=== PATIENT | male | born 1940 | race Caucasian/White ===

== ENCOUNTER 2017-07-12 21:41 | Inpatient (IN) | payer OTHER, MEDICARE ==
--- NOTE | 2017-07-12 22:26 | ED ---
Fall HPI - General Chief Complaint: Fall Stated Complaint: Fall Time Seen by Provider: 07/12/17 21:43 Source: patient, EMS Mode of arrival: EMS - History of Present Illness Initial Comments: This patient is a 77-year-old man who presents to be evaluated mainly for left hip pain as result of a fall. The patient states that he was doing some work on a ladder, he believes he was about 8 feet up, when he slipped and fell, landing on his left side on the sidewalk. He had some left elbow pain and left hip pain, and then noted that he was not able to get up and walk. The patient denied any loss of consciousness. He denies pain to the head, neck, chest, back or abdomen. He does not take any blood thinners. He did not note any lacerations. Patient declines analgesia at the initial history and physical exam. MD Complaint: fall Onset/Timin -: hour(s) Fall From: from height (distance) (8), other (From a ladder) When Fall Occurred: just prior to arrival Fall Witnessed: yes, by family Place Fall Occurred: street Loss of Consciousness: none Prolonged Down Time?: no Symptoms Prior to Fall: none Location - Extremities: Left: Elbow, Leg Severity: moderate Quality: sharp Context: tripped/slipped Associated Symptoms: unable to walk - Related Data Home Medications Medication Instructions Recorded Confirmed Aspirin [Adult Low Dose Aspirin EC] 81 mg PO DAILY 07/12/17 07/12/17 Lisinopril [Prinivil] 20 mg PO DAILY 07/12/17 07/12/17 Allergies Allergy/AdvReac Type Severity Reaction Status Date / Time No Known Allergies Allergy Verified 07/12/17 22:01 Review of Systems ROS Statement: Those systems with pertinent positive or pertinent negative responses have been documented in the HPI. ROS Other: All systems not noted in ROS Statement are negative. Constitutional: Denies: fever Eyes: Denies: vision change Respiratory: Denies: cough, dyspnea Cardiovascular: Denies: chest pain, syncope Gastrointestinal: Denies: abdominal pain Musculoskeletal: Reports: as per HPI, arthralgia. Denies: back pain Skin: Denies: rash, lesions Neurological: Denies: headache, weakness, numbness Hematological/Lymphatic: Denies: easy bleeding Past Medical History Past Medical History: Hypertension, Myocardial Infarction ([place]) History of Any Multi-Drug Resistant Organisms: None Reported Additional Past Surgical History / Comment(s): BILROTH 2 Past Psychological History: No Psychological Hx Reported Smoking Status: Current every day smoker Past Alcohol Use History: Occasional Past Drug Use History: None Reported General Exam Limitations: physical limitation General appearance: alert, in no apparent distress Head exam: Present: atraumatic, normocephalic, normal inspection Eye exam: Present: normal appearance. Absent: scleral icterus, conjunctival injection ENT exam: Present: normal oropharynx Neck exam: Present: normal inspection, full ROM. Absent: tenderness Respiratory exam: Present: normal lung sounds bilaterally, chest wall tenderness. Absent: respiratory distress, wheezes, rales, rhonchi, stridor Cardiovascular Exam: Present: regular rate, normal rhythm, normal heart sounds. Absent: systolic murmur, diastolic murmur, rubs, gallop GI/Abdominal exam: Present: soft. Absent: distended, tenderness, guarding, rebound, rigid, mass, pulsatile mass, hernia Extremities exam: Present: normal inspection, normal capillary refill. Absent: pedal edema, calf tenderness Back exam: Present: normal inspection. Absent: CVA tenderness (R), CVA tenderness (L) Neurological exam: Present: alert, CN II-XII intact Skin exam: Present: warm, dry, intact, normal color. Absent: rash, cyanosis, diaphoretic, erythema Course Vital Signs 07/12/17 07/12/17 07/12/17 21:58 22:01 23:01 Temperature 98.7 F 97 F L Pulse Rate 88 77 78 Respiratory 18 18 18 Rate Blood Pressure 220/122 175/95 153/94 O2 Sat by Pulse 98 97 99 Oximetry 07/13/17 00:18 Temperature Pulse Rate 74 Respiratory 18 Rate Blood Pressure 163/86 O2 Sat by Pulse 98 Oximetry Medical Decision Making - Medical Decision Making Patient is a 77-year-old man with left hip intertrochanteric fracture. Case discussed with Dr. Adrian, who will admit. Medical consultation ordered as well. Patient will be kept nothing by mouth for possible surgery. He did request some analgesia after being here for a period of time and this is provided him relief. - Lab Data Result diagrams: 07/12/17 23:20 07/12/17 23:20 Lab Results 07/12/17 07/12/17 07/12/17 Range/Units 23:20 23:20 23:20 WBC 13.1 H (3.8-10.6) k/uL RBC 4.50 (4.30-5.90) m/uL Hgb 13.0 (13.0-17.5) gm/dL Hct 39.3 (39.0-53.0) % MCV 87.4 (80.0-100.0) fL MCH 28.8 (25.0-35.0) pg MCHC 32.9 (31.0-37.0) g/dL RDW 13.8 (11.5-15.5) % Plt Count 274 (150-450) k/uL Neutrophils % 85 % Lymphocytes % 9 % Monocytes % 3 % Eosinophils % 1 % Basophils % 0 % Neutrophils # 11.2 H (1.3-7.7) k/uL Lymphocytes # 1.2 (1.0-4.8) k/uL Monocytes # 0.4 (0-1.0) k/uL Eosinophils # 0.2 (0-0.7) k/uL Basophils # 0.1 (0-0.2) k/uL PT 10.2 (9.0-12.0) sec INR 1.0 (<1.2) APTT 23.8 (22.0-30.0) sec Sodium 137 (137-145) mmol/L Potassium 4.6 (3.5-5.1) mmol/L Chloride 104 (98-107) mmol/L Carbon Dioxide 24 (22-30) mmol/L Anion Gap 9 mmol/L BUN 13 (9-20) mg/dL Creatinine 1.00 (0.66-1.25) mg/dL Est GFR (MDRD) Af Amer >60 (>60 ml/min/1.73 sqM) Est GFR (MDRD) Non-Af >60 (>60 ml/min/1.73 sqM) Glucose 88 (74-99) mg/dL Calcium 8.6 (8.4-10.2) mg/dL - EKG Data -: EKG Interpreted by Ne EKG shows normal: sinus rhythm (With PVC), axis (Normal), intervals (Normal), QRS complexes (Normal), ST-T waves (Normal) Rate: normal (Rate 77 bpm) Disposition Clinical Impression: Fall, Fracture of hip, left, closed Disposition: ADMITTED IP TO THIS HOSP Condition: Fair
--- NOTE | 2017-07-12 23:02 | XR ---
EXAMINATION TYPE: XR pelvis AP view DATE OF EXAM: 07/12/2017 COMPARISON: NONE HISTORY: Hip pain TECHNIQUE: Single view FINDINGS: Pelvic ring is intact. There is a comminuted intratrochanteric fracture of the left femur. Proximal right femur is intact. Sacroiliac joints appear normal. IMPRESSION: Acute intertrochanteric comminuted fracture left femur.
[2017-07-12] MEDS ORDERED: MORPHINE SULFATE 4 MG/ML SYRINGE IV STA (23:03)
--- NOTE | 2017-07-12 23:03 | XR ---
EXAMINATION TYPE: XR femur LT DATE OF EXAM: 07/12/2017 COMPARISON: NONE HISTORY: Hip pain TECHNIQUE: 4 views FINDINGS: There is comminuted intertrochanteric fracture left femur with slight impaction. There is d isplacement up to 1.5 cm. There is no dislocation. The knee joint appears intact. There is vascular c alcification. IMPRESSION: Acute intertrochanteric fracture left femur.
--- NOTE | 2017-07-12 23:05 | XR ---
EXAMINATION TYPE: XR chest 1V DATE OF EXAM: 07/12/2017 COMPARISON: 10/12/2014 HISTORY: Preop after falling TECHNIQUE: Single frontal view of the chest is obtained. FINDINGS: There is no heart failure nor confluent pneumonic infiltrate. Costophrenic angles are orly r. There are surgical clips at the gastroesophageal junction. Thoracic aorta is atheromatous. There a re chest leads. Bony thorax appears intact. IMPRESSION: No active cardiopulmonary disease. No change.
--- NOTE | 2017-07-12 23:06 | XR ---
EXAMINATION TYPE: XR elbow complete LT DATE OF EXAM: 07/12/2017 COMPARISON: None HISTORY: Fall. Pain. TECHNIQUE: 3 views. FINDINGS: I see no fracture nor dislocation. Elbow joint spaces are fairly normal. There is no sign of elbow pamela int effusion. IMPRESSION: Negative left elbow exam.
[2017-07-12] MEDS ORDERED: ONDANSETRON 4 MG/2 ML VIAL IVP PRN (23:32)
[2017-07-12] MEDS ORDERED: ACETAMINOPHEN TAB 325 MG TAB PO PRN (23:32)
[2017-07-12] MEDS ORDERED: MORPHINE SULFATE 4 MG/ML SYRINGE IV PRN (23:32)
[2017-07-12] MEDS ORDERED: NALOXONE 0.4 MG/ML 1 ML VIAL IV PRN (23:32)
[2017-07-12 23:33] LABS: Basophils # (A) 0.1 k/uL (0-0.2); Basophils % (A) 0 %; Eosinophils # (A) 0.2 k/uL (0-0.7); Eosinophils % (A) 1 %; HCT 39.3 % (39.0-53.0); Lymphocytes # (A) 1.2 k/uL (1.0-4.8); Lymphocytes % (A) 9 %; MCH 28.8 pg (25.0-35.0); MCHC 32.9 g/dL (31.0-37.0); MCV 87.4 fL (80.0-100.0); Mean Platelet Volume 7.7; Monocytes # (A) 0.4 k/uL (0-1.0); Monocytes % (A) 3 %; Neutrophils # (A) 11.2 k/uL (1.3-7.7); Neutrophils % (A) 85 %; Platelet Count 274 k/uL (150-450); RDW 13.8 % (11.5-15.5); WBC 13.1 k/uL (3.8-10.6)
[2017-07-12] MEDS ORDERED: LORazepam 2 MG/ML INJ IV PRN ×3 (23:41)
[2017-07-12] MEDS ORDERED: THIAMINE 100 MG/ML 2 ML VIAL IM STA (23:41)
[2017-07-12 23:42] LABS: Partial Thromboplastin Time 23.8 sec (22.0-30.0); Prothrombin Time 10.2 sec (9.0-12.0)
[2017-07-12 23:56] LABS: Anion Gap 9 mmol/L; Blood Urea Nitrogen 13 mg/dL (9-20); Calcium 8.6 mg/dL (8.4-10.2); Carbon Dioxide 24 mmol/L (22-30); Chloride 104 mmol/L (98-107); Glucose 88 mg/dL (74-99); Potassium 4.6 mmol/L (3.5-5.1); Sodium 137 mmol/L (137-145)
[2017-07-13] MEDS: SODIUM CHLORIDE 0.9% 1,000 ML IV SCH ×3 (01:21→22:58)
[2017-07-13 01:45] VITALS: BMI 17.9
[2017-07-13] MEDS: THIAMINE 100 MG TAB PO SCH ×3 (01:57→17:43)
[2017-07-13] MEDS: MORPHINE SULFATE 4 MG/ML SYRINGE IVP PRN ×5 (02:04→23:25)
[2017-07-13 03:01] LABS: Appearance,Urine Clear (Clear); Bilirubin,Urine Negative (Negative); Blood,Urine Negative (Negative); Color,Urine Yellow; Glucose,Urine (UA) Negative (Negative); Ketones,Urine 1+ (Negative); Leukocyte Esterase,Urine Negative (Negative); Protein,Urine Negative (Negative); Specific Gravity,Urine 1.009 (1.001-1.035); Urobilinogen,Urine <2.0 mg/dL (<2.0)
--- NOTE | 2017-07-13 07:59 | P.HPOR ---
History of Present Illness H&P Date: 07/13/17 Chief Complaint: Left hip pain status post fall, left elbow pain Patient's very pleasant 77-year-old male who presented to the emergency room yesterday after sustaining a fall at home. He was on a ladder and about 7 or 8 feet up when he slipped and fell onto his left side. He had sudden acute pain in his left hip and some pain in his elbow as well. He denies any loss of consciousness or chest pain or shortness of breath. He denies any prior history of pain in his hip. He is normally a community ambulate without any assistance. He is complaining of severe pain in his left hip with any sort of motion. He says he can move his left arm quite well but has some soreness. He denies any nausea vomiting chest pain or shortness breath. Denies any lightheadedness. Review of Systems Sizing change in bowel bladder function. He has severe pain in his left hip. He is no numbness tingling down his legs. His no chest pain shortness breath nausea vomiting. He denies loss of consciousness. Denies prior pain in his hips. Past Medical History Past Medical History: Hypertension, Myocardial Infarction ([place]) Last Myocardial Infarction Date:: 2006 History of Any Multi-Drug Resistant Organisms: None Reported Past Surgical History: Appendectomy, Tonsillectomy Additional Past Surgical History / Comment(s): BILROTH 2 Past Anesthesia/Blood Transfusion Reactions: Unable to Obtain Additional Past Anesthesia/Blood Transfusion Reaction / Comment(s): pt never received blood transfusion Past Psychological History: No Psychological Hx Reported Smoking Status: Current every day smoker Past Alcohol Use History: Occasional Past Drug Use History: None Reported Medications and Allergies Home Medications Medication Instructions Recorded Confirmed Type Aspirin [Adult Low Dose Aspirin EC] 81 mg PO DAILY 07/12/17 07/12/17 History Lisinopril [Prinivil] 20 mg PO DAILY 07/12/17 07/12/17 History Allergies Allergy/AdvReac Type Severity Reaction Status Date / Time No Known Allergies Allergy Verified 07/12/17 22:01 Physical Examination Osteopathic Statement: *. No significant issues noted on an osteopathic structural exam other than those noted in the History and Physical/Consult. - Hip left Gait: other Tenderness with palpation: anterior, posterior, medial, lateral Pain with motion: internal rotation and hip flexion (Has left hip he has severe pain with any sort of motion. He is unable to lift his leg up off the bed. He has pain with any internal or external rotation of the left. There is no open wounds lacerations or abrasions. His thigh and calf soft nontender. His right lower extremity has good motion with flexion-extension internal/external rotation of his hip. He has sustained dorsal flexion plantar flexion and EHL his bilateral ankle the toes. His upper extremity some good active passive range of motion he has some ecchymosis over his left elbow there is no point tenderness no crepitance. He has good motion in his elbows shoulders. His neck and back nontender to palpation. His abdomen soft nontender.) Results - Labs Labs: Abnormal Lab Results - Last 24 Hours (Table) 07/12/17 07/13/17 Range/Units 23:20 00:00 WBC 13.1 H (3.8-10.6) k/uL Neutrophils # 11.2 H (1.3-7.7) k/uL Urine Ketones 1+ H (Negative) H & H 07/12/17 Range/Units 23:20 Hgb 13.0 (13.0-17.5) gm/dL Hct 39.3 (39.0-53.0) % Coagulation 07/12/17 Range/Units 23:20 INR 1.0 (<1.2) Result Diagrams: 07/12/17 23:20 07/12/17 23:20 - Diagnostic results Hip x-ray: report reviewed, image reviewed (X-rays of pelvis left hip show a comminuted intertrochanteric left proximal femur fracture. There is no evidence of any masses. There is no dislocation. X-rays of his left elbow do not show any obvious fracture or dislocation.) Assessment and Plan Assessment: Traumatic left hip intertrochanteric femur fracture status post fall Left elbow contusion status post fall Inability to ambulate due to left femur fracture Plan: The patient has a new acute traumatic fracture of his left intertrochanteric femur. He is unable to mobilize due to this and has severe pain with it. This is directly due to his fall. His best option for treatment would be to pursue internal fixation to attempt to get the fracture to heal as best as possible and preserve his anatomy. We will plan to do intramedullary hip screw fixation of his left hip as soon as possible. I discussed the different issues associated with his fracture and with different treatment options ranging from conservative to surgical. We discussed the risks of surgery including but limited to the risk of bleeding risk of infection risk of need for further surgery risk of decreased or loss of motion loss of function malunion nonunion hardware failure nerve damage was all explained to him the risks of anesthesia was explained risk of need for further surgery was explained as well as the fact that surgery may not alleviate his symptoms was all explained to him. He understands that with his injury the conservative options are quite dismal and would not likely produce a satisfactory result for him. He is interested in pursuing surgical intervention and we'll plan to pursue surgery today if he is cleared with medicine. We will keep him nothing by mouth for now for possible surgery today. He is can remain on bedrest at least until his surgery and then we can start him mobilizing with nonweightbearing left lower extremity. It is likely that he is going to be possible for the next couple of days for rehabilitation before he is able to be discharged home after surgery.
[2017-07-13] MEDS: LISINOPRIL 20 MG TAB PO SCH (08:19)
[2017-07-13 09:13] LABS: Basophils # (A) 0.1 k/uL (0-0.2); Basophils % (A) 1 %; Eosinophils # (A) 0.1 k/uL (0-0.7); Eosinophils % (A) 1 %; HGB 11.4 gm/dL (13.0-17.5); Lymphocytes # (A) 1.5 k/uL (1.0-4.8); Lymphocytes % (A) 15 %; MCH 28.6 pg (25.0-35.0); MCHC 31.6 g/dL (31.0-37.0); MCV 90.3 fL (80.0-100.0); Mean Platelet Volume 7.6; Monocytes # (A) 0.4 k/uL (0-1.0); Monocytes % (A) 4 %; Neutrophils # (A) 7.7 k/uL (1.3-7.7); Neutrophils % (A) 77 %; Platelet Count 274 k/uL (150-450); RBC 3.99 m/uL (4.30-5.90); RDW 13.4 % (11.5-15.5); WBC 9.9 k/uL (3.8-10.6)
[2017-07-13 09:24] LABS: Anion Gap 7 mmol/L; Blood Urea Nitrogen 12 mg/dL (9-20); Carbon Dioxide 24 mmol/L (22-30); Chloride 104 mmol/L (98-107); Glucose 80 mg/dL (74-99); Sodium 135 mmol/L (137-145)
[2017-07-13] MEDS ORDERED: IPRATROPIUM-ALBUTEROL 3 ML NEB INHALATION PRN (11:20)
[2017-07-13] MEDS ORDERED: LACTATED RINGERS 1,000 ML IV ONE ×2 (11:45→13:42)
[2017-07-13] MEDS ORDERED: MIDAZOLAM 2 MG/2 ML VIAL ONE (12:11)
[2017-07-13] MEDS ORDERED: fentaNYL (PF) 50 MCG/ML 2 ML AMP ONE (12:11)
[2017-07-13] MEDS ORDERED: PHENYLEPHRINE-0.9% NACL SYG 1 MG/10 ML SYRINGE ONE (12:11)
[2017-07-13] MEDS ORDERED: KETAMINE 10 MG/ML 20 ML VIAL ONE (12:11)
[2017-07-13] MEDS ORDERED: PROPOFOL 10 MG/ML 20 ML VIAL IV ONE (12:11)
[2017-07-13] MEDS: IPRATROPIUM-ALBUTEROL 3 ML NEB INHALATION SCH ×2 (12:13→18:52)
[2017-07-13] MEDS ORDERED: SODIUM CHLORIDE 0.9% 50 ML with ceFAZolin 2,000 MG IV ONE ×2 (12:35)
[2017-07-13] MEDS ORDERED: ceFAZolin 1,000 MG in SODIUM CHLORIDE 0.9% 1,000 ML IRRIGATION ONE (12:50)
[2017-07-13] MEDS ORDERED: MAGNESIUM HYDROXIDE 2,400 MG/10 ML CUP PO PRN (13:28)
[2017-07-13] MEDS ORDERED: HYDROcodone/APAP 5-325MG 1 EACH TAB PO PRN (13:28)
[2017-07-13] MEDS ORDERED: NALOXONE 0.4 MG/ML 1 ML VIAL IV PRN (13:28)
--- NOTE | 2017-07-13 13:34 | P.OP ---
Date of Procedure: 07/13/17 Preoperative Diagnosis: Left hip comminuted intratrochanteric trochanteric hip fracture Acute left hip fracture status post fall Postoperative Diagnosis: Same Anesthesia: spinal Pathology: other (Proximal femur reaming sent to pathology) Condition: stable Disposition: PACU Description of Procedure: Preoperative diagnosis: Left comminuted Intertrochanteric femoral hip fracture, acute status post fall Postoperative diagnosis: Same Procedure: intertrochanteric hip screw placement Use of fluoroscopic guidance Closed reduction Surgeon: Dr. Nguyễn Ruiz.: Colten Rm who is present that the entire the case persistence during positioning dissection exposure placement of hardware and closure Anesthesia: Spinal per Dr. Dr. eLvin Estimated blood loss: Approximately 100 mL Components implanted: [employer]TAN IM hip screw 125 short with a 120 mm lag screw Disposition: To recovery room in good stable condition Operative indications The patient sustained a injury and suffered a hip fracture at the inter- trochanteric area of her femur which was displaced and angulated. The patient was on a ladder and fell approximately 7 or 8 feet onto his left side and had comminuted intertrochanteric left hip fracture due to his fall. We were involved in the case in regard to his hip fracture. Patient also had some left elbow pain but was not found to have any fracture. After evaluation it was determined that they would be a candidate for hip internal fixation and stabilization via surgical intervention. This would give them the best chance of mobilization and ambulation. We discussed the range of treatment options from conservative to surgical. They elected proceed with surgical intervention. We answered their questions to the best of our ability healing which they can understand. They signed an informed consent. Operative summary After obtaining informed consent evaluation by anesthesia, preoperative evaluation and clearance for medical service, the patient was identified and prepped Shirley area and the surgical site was marked. There brought to the operating room where the given appropriate anesthesia by the anesthesia department in standard fashion without any complications. Once the anesthesia was established we were able to position the patient. The patient was placed on a fracture table with a well-padded perineal post. The operative side was placed in a foot oden stirrup which was well-padded well molded and placed in gentle in-line traction. The nonoperative leg was placed in a padded stirrup. C-arm was brought in and we performed a closed reduction technique at the hip. We are able to get good alignment good position of the intertrochanteric fracture with gentle reduction techniques and traction utilizing the fracture table. Once patient was well positioned lower extremity was prepped and draped in normal standard sterile fashion. An appropriate keystone protocol and timeout was completed and were able to proceed with surgery. He started point just proximal to the greater trochanter was established and a median incision approximately 2 inches in length approximately to the greater trochanter. I dissected down through the fascia and I was able to expose the tip of the greater trochanter. A sharp starting hole was established at the tip of the greater trochanter near the junction of the anterior and middle third. Positioning was confirmed with C-arm guidance. I was able to start the awl into the bone and then use a guidepin at the starting point establish down to the level of the lesser trochanter at the intramedullary space. I then used a starting reamer for the greater trochanter placed over the guidepin and reamed down appropriately under C-arm guidance. I was unable to place a guidepin into the intramedullary aspect of the femur and then reamed appropriately to the appropriate length. The positioning was confirmed on C-arm guidance. With the femur appropriately reamed I then chose the appropriate size intramedullary bautista which was connected to the appropriate jig. The jig was checked for alignment. The area was copiously irrigated and suctioned dry and we're able place the bautista at intramedullary space through the starting hole appropriately. It was seated down for appropriate position to align the leg pain into the femoral neck and head. A second incision was established at the site for the placement of the lag screw area and the guide was established at the lateral aspect of the femur and a guidepin was drilled into the femoral neck and head and near center center position. With this appropriate alignment and position where a reamer over the guidepin making sure not to penetrate the articular surface. The position was confirmed on C-arm guidance in AP and lateral positions. With this established we were able to place the appropriate size lag screw after measuring. Lag screw was placed into the femoral neck and head good alignment good position with excellent bony purchase. It was appropriately aligned and we placed a locking screw through the bautista appropriately and checked that the position was established. I was able to drill and place the compression screw immediately adjacent and inferior to the lag screw which gave good compression across the fracture site in good alignment and position. With the area in good position able place a distal locking screw. We utilized the guide sleeve a separate incision was made at the skin. The guide sleeve was placed in the lateral aspect of the femur and the distal locking screw hole was established through the femur and distal locking hole of the intramedullary bautista. It was measured appropriately and a distal locking screw was placed in good alignment and good position with excellent bony purchase. The position was checked to make sure it was through the appropriate hole in the intramedullary bautista. With this established we're able to remove the jig completely from the bautista and final images were taken which showed excellent alignment and position of the hardware and the fracture. With the bautista in place and the fracture stable, although the incision sites were copiously irrigated and suctioned dry. Good hemostasis was maintained. Deep fascial layers were closed with #1 Vicryl. Subcu tissue was closed with 2-0 Vicryl. Subcuticular tissues closed with 3-0 Vicryl. Was are cleaned and dried with dressed with Dermabond , Telfa for a and tape. Drapes were broken down, the hip was held in stable position with the post being removed safely once the positioning was stabilized. The patient was then transferred back to their hospital bed being careful to maintain the hip and C- spine alignment and airway. Once stable to patient was transferred back to the postanesthesia care unit to be readmitted for pain control and DVT prophylaxis medical management and monitoring and mobilization we will continue follow patient closely throughout their postoperative course.
--- NOTE | 2017-07-13 14:21 | FL ---
EXAMINATION TYPE: FL guidance operating room, XR Hip Complete LT DATE OF EXAM: 07/13/2017 CLINICAL HISTORY: Left hip fracture. TECHNIQUE: Fluoroscopy. Complete intraoperative 2 views left hip. COMPARISON: Pelvic and left femur x-ray July 12, 2017. FINDINGS: Fluoroscopic guidance was provided during open reduction internal fixation procedure perfo rmed by Dr. Adrian. A total of 36 seconds of fluoroscopic time was utilized during the procedure and 4 spot images are acquired. Images acquired show placement of intramedullary bautista with distal transverse fixating screw and larger femoral neck fixating screws through the intertrochanteric fracture left proximal femur. Slight late ral step-off is seen on frontal view at level of lesser trochanter on intraoperative images provided. IMPRESSION: As Above.
[2017-07-13] MEDS: ceFAZolin IN SWFI 2 GM/20 ML SYRINGE IVP SCH ×2 (16:35→23:16)
[2017-07-13] MEDS ORDERED: ASPIRIN 81 MG PO SCH (18:00)
[2017-07-13] MEDS: ASPIRIN 325 MG TAB PO SCH (18:08)
[2017-07-13] MEDS: SENNOSIDES-DOCUSATE SODIUM 1 EACH TAB PO SCH (20:02)
[2017-07-13] MEDS: NICOTINE 21MG/24HR PATCH TRANSDERM SCH (20:02)
--- NOTE | 2017-07-13 22:58 | CONS ---
CONSULTATION REASON FOR CONSULTATION: Advice regarding hypertension and multiple other medical issues requested by Orthopedic Surgery. HISTORY OF PRESENT ILLNESS: This 77-year-old gentleman with a past medical history of hypertension, history of CAD, stent in 2006, history of appendectomy, tonsillectomy, Billroth II being followed by Dr. Cueva in the outpatient setting apparently had a fall and complaining of left hip pain. The patient suffered a left hip comminuted intertrochanteric fracture and is admitted for evaluation. There is no history of fever, rigors. No history of headache, loss of consciousness, seizures. No history of any chest pain, palpitations. Previous exercise tolerance appears to be excellent. PAST MEDICAL HISTORY: History of hypertension, history of myocardial infarction, tonsillectomy, Billroth II. MEDICATIONS: The home medications are: 1. Spiriva 1 puff daily. 2. Ventolin HFA 1-2 puffs every 6 hours. 3. Prinivil 20 mg daily. 4. Ecotrin 81 mg daily. ALLERGIES: None. FAMILY HISTORY: No history of heart disease, strokes in the family. SOCIAL HISTORY: No smoking. Occasional alcohol intake. REVIEW OF SYSTEMS: ENT: No diminished hearing, diminished vision. CARDIOVASCULAR: No angina, palpitations. RESPIRATORY: No cough or hemoptysis. GI: No nausea or vomiting. : No dysuria. NERVOUS: No numbness or weakness. ALLERGY/IMMUNOLOGY: No asthma or hay fever. MUSCULOSKELETAL: As mentioned earlier. HEMATOLOGY/ONCOLOGY: No history of anemia. ENDOCRINE: No history of diabetes, hypothyroidism. CONSTITUTIONAL: As mentioned earlier. DERMATOLOGY: Negative. RHEUMATOLOGY: Negative. PSYCHIATRY: As mentioned earlier. PHYSICAL EXAMINATION: Alert and oriented x3. Pulse is 79, blood pressure 120/64, respirations 16, temperature is normal, pulse ox 94% on room air. HEENT: Conjunctivae normal. Oral mucosa moist. NECK: No jugular venous distention. No carotid bruits. No lymph node enlargement. CARDIOVASCULAR: S1, S2 muffled. No S3. No S4. RESPIRATORY: Breath sounds diminished in the bases. No rhonchi. No crackles. ABDOMEN: Soft, nontender. No mass palpable. LEGS: Status post hip fracture. NERVOUS SYSTEM: Higher functions as mentioned earlier. Moves all 4 limbs. No focal motor or sensory deficits. LYMPHATIC: No lymphadenopathy in neck or axillae. SKIN: No ulcer, rash or bleeding. LABS: WBC 9.9, hemoglobin 11.4. Sodium 135. ASSESSMENT: 1. Status post left hip fracture and fall. 2. History of hypertension. 3. History of myocardial infarction. 4. History of coronary artery disease, stent. 5. History of Billroth II. 6. History of nicotine dependence. 7. Possible chronic obstructive pulmonary disease. RECOMMENDATIONS AND DISCUSSION: In this 77-year-old gentleman who presented with multiple complex medical issues, at this time I recommend to continue current treatment. Resume the home medications. Resume the bronchodilators and incentive spirometry, DVT prophylaxis and continue the aspirin. We will follow the patient closely with you and patient is currently medically stable. Incentive spirometry. The patient may be asked to follow up with primary physician closely. Thank you, Dr. Adrian, for asking us to participate in this patient's care. LANE / LENARD: [id number] /
[2017-07-14] MEDS: MORPHINE SULFATE 4 MG/ML SYRINGE IVP PRN (04:56)
[2017-07-14] MEDS: SODIUM CHLORIDE 0.9% 1,000 ML IV SCH ×2 (05:50→20:39)
[2017-07-14 07:32] LABS: Basophils % (A) 0 %; Eosinophils # (A) 0.1 k/uL (0-0.7); Eosinophils % (A) 1 %; HCT 31.6 % (39.0-53.0); Lymphocytes # (A) 1.1 k/uL (1.0-4.8); Lymphocytes % (A) 13 %; MCH 28.6 pg (25.0-35.0); MCHC 31.6 g/dL (31.0-37.0); MCV 90.7 fL (80.0-100.0); Mean Platelet Volume 7.9; Monocytes # (A) 0.6 k/uL (0-1.0); Monocytes % (A) 7 %; Neutrophils # (A) 6.6 k/uL (1.3-7.7); Neutrophils % (A) 78 %; Platelet Count 231 k/uL (150-450); RBC 3.48 m/uL (4.30-5.90); RDW 13.2 % (11.5-15.5); WBC 8.5 k/uL (3.8-10.6)
[2017-07-14] MEDS: HYDROcodone/APAP 5-325MG 1 EACH TAB PO PRN ×2 (08:06→18:21)
[2017-07-14] MEDS: ASPIRIN 325 MG TAB PO SCH ×2 (08:07→20:39)
[2017-07-14] MEDS: LISINOPRIL 20 MG TAB PO SCH (08:07)
[2017-07-14] MEDS: NICOTINE 21MG/24HR PATCH TRANSDERM SCH (08:45)
[2017-07-14] MEDS ORDERED: TIOTROPIUM BROMIDE 18 MCG INHALATION SCH (09:00)
[2017-07-14] MEDS: IPRATROPIUM-ALBUTEROL 3 ML NEB INHALATION SCH ×3 (10:11→18:50)
--- NOTE | 2017-07-14 10:11 | P.PN ---
Subjective Progress Note Date: 07/14/17 Principal diagnosis: Intertrochanteric fracture left hip. Status post closed reduction with insertion of intertrochanteric nail left hip. This is a 77-year-old male who is status post closed reduction with insertion of intertrochanteric nail left hip. He is stable from an orthopedic standpoint. He is seen up in chair this morning. He has no new complaints or concerns today. Vital signs are stable. Objective - Vital Signs Vital signs: Vital Signs Temp 97.7 F 07/14/17 07:39 Pulse 88 07/14/17 07:39 Resp 16 07/14/17 07:39 BP 145/81 07/14/17 07:39 Pulse Ox 97 07/14/17 07:39 Intake & Output 07/13/17 07/14/17 07/14/17 18:59 06:59 18:59 Intake Total 1101 120 Output Total 100 400 150 Balance 1001 -400 -30 Weight 59.874 kg Intake: IV 1101 Oral 120 Output: Urine 400 150 Estimated Blood Loss 100 Other: Voiding Method Urinal # Voids 1 1 # Bowel Movements 0 0 - Exam This is a pleasant 77-year-old male in no acute distress. He is alert and oriented 3. He is sitting upright in chair. Exam of the left hip reveals no deformity. The dressing is clean, dry and intact. He has full foot and ankle motion without difficulty or pain. Neurovascular status to the lower extremities is intact. - Labs CBC & Chem 7: 07/14/17 06:31 07/13/17 08:16 Labs: Abnormal Lab Results - Last 24 Hours (Table) 07/14/17 Range/Units 06:31 RBC 3.48 L (4.30-5.90) m/uL Hgb 10.0 L (13.0-17.5) gm/dL Hct 31.6 L (39.0-53.0) % Assessment and Plan (1) Status post-operative repair of closed fracture of left hip Current Visit: Yes Status: Acute Code(s): Z98.890 - OTHER SPECIFIED POSTPROCEDURAL STATES; Z87.81 - PERSONAL HISTORY OF (HEALED) TRAUMATIC FRACTURE SNOMED Code(s): 885844705 (2) Fracture of hip, left, closed Current Visit: Yes Status: Acute Code(s): S72.002A - FRACTURE OF UNSP PART OF NECK OF LEFT FEMUR, INIT SNOMED Code(s): 970096114 Plan: The clinical findings are discussed with the patient. He is nonweightbearing to the left lower extremity with walker. We will see how he does physical therapy over the next couple of days. We're planning discharge to home versus rehab on Sunday.
[2017-07-14] MEDS: THIAMINE 100 MG TAB PO SCH ×2 (13:12→20:39)
--- NOTE | 2017-07-14 17:39 | PN ---
PROGRESS NOTE DATE OF SERVICE: 07/14/2017. This 77-year-old gentleman who was admitted after left hip fracture and surgery, is improving significantly. No chest pain. No palpitations. No fever. EXAM: Alert and oriented x3. Pulse 97, blood pressure 151/70, respiration 18, temperature 98.1, pulse ox 97% on room air. HEENT: Conjunctivae normal. NECK: No jugular venous distention. CARDIOVASCULAR: S1, S2. RESPIRATORY: Breath sounds diminished in the bases. No rhonchi, no crackles. ABDOMEN: Soft. LEGS: Status post surgery. NERVOUS SYSTEM: No focal deficits. LABS: WBC 8.2, hemoglobin is 10. ASSESSMENT: 1. Status post left hip fracture and fall. 2. History hypertension. 3. History of myocardial infarction. 4. History of coronary artery disease, stent. 5. History of Billroth II surgery. 6. History of nicotine dependence. 7. History of possible chronic obstructive pulmonary disease. RECOMMENDATIONS AND DISCUSSION: I recommend to continue current management and treatment, otherwise monitor closely. Repeat labs. DVT prophylaxis. Incentive spirometry. Closely follow with Orthopedic Surgery. Further recommendations to follow. MMODL / IJN: [id number] /
[2017-07-14] MEDS: SENNOSIDES-DOCUSATE SODIUM 1 EACH TAB PO SCH (20:40)
[2017-07-15] MEDS: MORPHINE SULFATE 4 MG/ML SYRINGE IVP PRN (01:12)
[2017-07-15] MEDS: SODIUM CHLORIDE 0.9% 1,000 ML IV SCH ×2 (04:18→21:31)
[2017-07-15 07:21] LABS: Basophils % (A) 0 %; Eosinophils # (A) 0.1 k/uL (0-0.7); Eosinophils % (A) 1 %; HCT 27.7 % (39.0-53.0); HGB 9.2 gm/dL (13.0-17.5); Lymphocytes % (A) 15 %; MCH 29.1 pg (25.0-35.0); MCHC 33.2 g/dL (31.0-37.0); MCV 87.6 fL (80.0-100.0); Mean Platelet Volume 8.2; Monocytes # (A) 0.5 k/uL (0-1.0); Monocytes % (A) 8 %; Neutrophils # (A) 5.1 k/uL (1.3-7.7); Neutrophils % (A) 74 %; Platelet Count 208 k/uL (150-450); RBC 3.16 m/uL (4.30-5.90); RDW 13.3 % (11.5-15.5); WBC 6.8 k/uL (3.8-10.6)
[2017-07-15] MEDS: IPRATROPIUM-ALBUTEROL 3 ML NEB INHALATION SCH ×3 (07:22→19:41)
[2017-07-15] MEDS: HYDROcodone/APAP 5-325MG 1 EACH TAB PO PRN (08:45)
[2017-07-15] MEDS: LISINOPRIL 20 MG TAB PO SCH (08:45)
--- NOTE | 2017-07-15 09:56 | P.PN ---
Subjective Progress Note Date: 07/15/17 Principal diagnosis: Intertrochanteric fracture left hip. Status post closed reduction with insertion of intertrochanteric nail left hip. This is a 77-year-old male who is status post closed reduction with insertion of intertrochanteric nail left hip. He is stable from an orthopedic standpoint. He is observed getting up in chair this morning. He has no new complaints or concerns today. Vital signs are stable. Objective - Vital Signs Vital signs: Vital Signs Temp 97.9 F 07/15/17 07:00 Pulse 73 07/15/17 07:32 Resp 14 07/15/17 07:00 BP 132/86 07/15/17 07:00 Pulse Ox 96 07/15/17 07:00 Intake & Output 07/14/17 07/15/17 07/15/17 18:59 06:59 18:59 Intake Total 120 Output Total 250 100 Balance -130 -100 Weight 59.874 kg Intake: Oral 120 Output: Urine 250 100 Other: Voiding Method Urinal # Voids 1 4 # Bowel Movements 0 0 - Exam This is a pleasant 77-year-old male in no acute distress. He is alert and oriented 3. He is sitting upright in chair. Exam of the left hip reveals no deformity. The dressing is clean, dry and intact. He has full foot and ankle motion without difficulty or pain. Neurovascular status to the lower extremities is intact. - Labs CBC & Chem 7: 07/15/17 06:42 07/13/17 08:16 Labs: Abnormal Lab Results - Last 24 Hours (Table) 07/15/17 Range/Units 06:42 RBC 3.16 L (4.30-5.90) m/uL Hgb 9.2 L (13.0-17.5) gm/dL Hct 27.7 L (39.0-53.0) % Assessment and Plan (1) Status post-operative repair of closed fracture of left hip Current Visit: Yes Status: Acute Code(s): Z98.890 - OTHER SPECIFIED POSTPROCEDURAL STATES; Z87.81 - PERSONAL HISTORY OF (HEALED) TRAUMATIC FRACTURE SNOMED Code(s): 070648258 (2) Fracture of hip, left, closed Current Visit: Yes Status: Acute Code(s): S72.002A - FRACTURE OF UNSP PART OF NECK OF LEFT FEMUR, INIT SNOMED Code(s): 306860683 Plan: The clinical findings are discussed with the patient. He is nonweightbearing to the left lower extremity with walker. We will see how he does physical therapy over the next couple of days. We're planning discharge to home versus rehab on Sunday.
[2017-07-15] MEDS: ASPIRIN 325 MG TAB PO SCH ×2 (10:43→17:52)
[2017-07-15] MEDS: THIAMINE 100 MG TAB PO SCH ×2 (12:47→17:52)
[2017-07-15] MEDS: NICOTINE 21MG/24HR PATCH TRANSDERM SCH (15:40)
--- NOTE | 2017-07-15 17:28 | PN ---
PROGRESS NOTE DATE OF SERVICE: 07/15/2017 This 77-year-old gentleman was admitted after left hip fracture and fall, underwent intertrochanteric placement under fluoroscopic guidance. No chest pain. No palpitations. No fever. PT, OT are evaluating the patient. EXAM: Alert and oriented x3. Pulse 73, blood pressure 133/66, respirations 14, temperature 98.8, pulse ox 98% on room air. HEENT: Conjunctivae normal. Neck: No jugular venous distention. Cardiovascular: S1, S2 muffled. Respiratory: Breath sounds diminished in the bases. No rhonchi and no crackles. Abdomen is soft, nontender. Legs: Status post surgery. Central nervous system: No focal deficits. LAB STUDIES: WBC 6.8, hemoglobin 9.2, sodium 135. ASSESSMENT: 1. Left hip fracture status post intertrochanteric hip screw placement. 2. Hypertension. 3. History of myocardial infarction. 4. History of coronary artery disease stent. 5. History of Billroth II surgery. 6. History of nicotine dependence. 7. History of possible chronic obstructive pulmonary disease. 8. Mild hyponatremia. 9. Anemia, as expected. RECOMMENDATIONS AND DISCUSSION: In this 77-year-old gentleman who presented with multiple complex medical issues , we will monitor the patient closely. Continue the current medications and symptomatic treatment. DVT prophylaxis. Incentive spirometry. Continue the rest of medications. Closely follow with surgery. Further recommendations to follow. LANE / LENARD: [id number] / MTDD
[2017-07-15] MEDS: SENNOSIDES-DOCUSATE SODIUM 1 EACH TAB PO SCH (21:30)
[2017-07-16 01:09] VITALS: RESP 16
[2017-07-16 07:04] LABS: Basophils % (A) 1 %; Eosinophils # (A) 0.2 k/uL (0-0.7); Eosinophils % (A) 2 %; HCT 29.8 % (39.0-53.0); HGB 9.4 gm/dL (13.0-17.5); Lymphocytes # (A) 1.1 k/uL (1.0-4.8); Lymphocytes % (A) 16 %; MCH 28.6 pg (25.0-35.0); MCHC 31.4 g/dL (31.0-37.0); MCV 90.9 fL (80.0-100.0); Monocytes # (A) 0.5 k/uL (0-1.0); Monocytes % (A) 7 %; Neutrophils # (A) 4.8 k/uL (1.3-7.7); Neutrophils % (A) 72 %; Platelet Count 249 k/uL (150-450); RBC 3.28 m/uL (4.30-5.90); WBC 6.7 k/uL (3.8-10.6)
[2017-07-16] MEDS: LISINOPRIL 20 MG TAB PO SCH (08:45)
[2017-07-16] MEDS: ASPIRIN 325 MG TAB PO SCH ×2 (08:45→17:19)
[2017-07-16] MEDS: THIAMINE 100 MG TAB PO SCH ×2 (08:45→17:19)
[2017-07-16] MEDS: NICOTINE 21MG/24HR PATCH TRANSDERM SCH (08:46)
--- NOTE | 2017-07-16 09:00 | P.DS ---
Providers Date of admission: 07/12/17 23:30 Expected date of discharge: 07/16/17 Attending physician: Yolande Adrian Consults: 07/12/17 23:32 Consult Physician Routine Consulting Provider: Sharon Greenberg Consult Reason/Comments: Medical clearance Do you want consulting provider notified?: Yes 07/12/17 23:35 Consult Physician Urgent Consulting Provider: Gonzalez Cueva Consult Reason/Comments: medical clearance for surgery Do you want consulting provider notified?: Yes Primary care physician: Gonzalez Cueva - Discharge Diagnosis(es) (1) Fall Current Visit: Yes Status: Acute (2) Status post-operative repair of closed fracture of left hip Current Visit: Yes Status: Acute Hospital Course: This is a pleasant 77-year-old male who presented with left hip comminuted intertrochanteric fracture. He was admitted for further treatment and underwent a left hip intramedullary screw fixation for left comminuted intertrochanteric hip fracture. The patient tolerated the procedure well and did well postoperatively. His pain has been better controlled postoperatively. He feels he has had some improvement over the weekend. He has been able to ambulate with the assistance of a walker. He does feel he needs discharged to rehabilitation facility prior to returning home. His to remain nonweightbearing on the left lower extremity. Condition on day of discharge stable. Patient will be discharged to rehabilitation facility. Patient was cleared preoperatively for surgery by Dr. Greenberg. Patient currently denies any nausea, vomiting, fever, or chills. Patient is eating and voiding freely without difficulty. Patient may shower without a dressing over the incision sites over the left hip if incision sites continue to remain clean, dry, and intact over the next 3 days. Patient will continue to be nonweightbearing on the left lower extremity. He may ambulate with the assistance of a walker. He' ll be given a prescription for a walker. He is also given prescriptions for aspirin 325 mg 1 tab twice a day dispensed #60 and [place] 5 mg/325 mg 1-2 tabs every 6 hours as needed for pain dispense #90. Patient may take other previously prescribed medications while avoiding anti-inflammatories over the next 6 weeks. We will plan to have the patient hold aspirin 81 mg daily while taking the prescription for aspirin 325 mg twice a day. Physical Exam: Status post surgical day number 3 Patient is examined lying in bed Patient is awake and alert, and oriented 3 Vital signs stable Good chest excursion with deep inspiration and expiration Abdomen soft nontender No signs or symptoms of DVT; no calf pain Lower extremity cuffs in place over the right lower extremity Dressing of the left hip is clean, dry, and intact; no erythema, purulence, or signs of infection No active drainage from the incision sites of the left hip Full range of motion of ankles bilaterally Dorsiflexion, plantarflexion, and extensor hallucis longus positive sustained bilaterally Neurovascularly intact bilateral lower extremities Capillary refill less than 2 seconds bilateral lower extremities Procedures: Left hip intramedullary screw fixation for left comminuted intertrochanteric hip fracture Patient Condition at Discharge: Stable Plan - Discharge Summary Discharge Rx Participant: Yes New Discharge Prescriptions: New Aspirin 325 mg PO BID #60 tab Hydrocodone/Acetaminophen [[place] 5-325] 1 - 2 each PO Q6HR PRN #90 tab PRN Reason: Pain Continue Lisinopril [Prinivil] 20 mg PO DAILY Albuterol Inhaler [Ventolin Hfa Inhaler] 1 - 2 puff INHALATION Q6HR PRN PRN Reason: Shortness Of Breath Tiotropium [place] [Spiriva] 18 mcg INHALATION DAILY Discontinued Aspirin [Adult Low Dose Aspirin EC] 81 mg PO DAILY Discharge Medication List Lisinopril [Prinivil] 20 mg PO DAILY 07/12/17 [History] Albuterol Inhaler [Ventolin Hfa Inhaler] 1 - 2 puff INHALATION Q6HR PRN [History] Tiotropium [place] [Spiriva] 18 mcg INHALATION DAILY 07/13/17 [History] Aspirin 325 mg PO BID #60 tab 07/16/17 [Rx] Hydrocodone/Acetaminophen [[place] 5-325] 1 - 2 each PO Q6HR PRN #90 tab 07/16/17 [Rx] Follow up Appointment(s)/Referral(s): Gonzalez Cueva DO [Primary Care Provider] - 1-2 days Colten Stephenson PAC [PHYSIC[facility] [employer]] - 2 Weeks (Patient may follow-up with Colten Stephenson PA-C or Dr. Kadeem Adrian at [facility] in 2-3 weeks following discharge. ) Activity/Diet/Wound Care/Special Instructions: 1. Patient to remain nonweightbearing on the left lower extremity; patient may work with physical therapy to increase mobility and ambulation 2. Keep dressing over the left hip clean, dry, and intact 3. Patient may shower without a dressing over the left hip incision sites remain clean and dry over the next 3 days 4. Continue with anticoagulation therapy with aspirin 325 mg twice a day 5. Patient may use a walker to aid in ambulation as needed 6. Take medications as prescribed Discharge Disposition: TRANSFER TO SNF/ECF
[2017-07-16] MEDS: IPRATROPIUM-ALBUTEROL 3 ML NEB INHALATION SCH ×2 (09:01→13:07)
[2017-07-16] MEDS: SODIUM CHLORIDE 0.9% 1,000 ML IV SCH (12:23)
[2017-07-16] MEDS ORDERED: HYDROmorphone 2 MG TAB PO PRN (14:16)
[2017-07-16 15:28] VITALS: BP 151/79; PULSE 77; TEMP 98.5
[2017-07-16] MEDS: HYDROcodone/APAP 5-325MG 1 EACH TAB PO PRN (17:17)
--- NOTE | 2017-07-16 17:35 | PN ---
PROGRESS NOTE DATE OF SERVICE: 07/16/2017 This 77-year-old gentleman was admitted with left hip fracture had a intertrochanteric hip fracture screw placement. The patient is being monitored closely. No chest pain. No palpitations. No fever. PHYSICAL EXAM: Alert and oriented times three. Pulse 77, blood pressure 150/70, respiration 16, temp 98.5, pulse of 98% on room air. HEENT: Conjunctivae normal. Oral mucosa moist. Neck is no jugular venous distention. No carotid bruit. No lymph node enlargement. Cardiovascular S1-S2. RESPIRATORY: Breath sounds diminished in the bases. No rhonchi and no crackles. ABDOMEN: Soft, nontender. Legs status post surgery. Central nervous system: No focal deficits. LAB STUDIES: WBC 6.5, hemoglobin is 9.4. ASSESSMENT: 1. Left hip fracture status post intertrochanteric hip screw placement. 2. Hypertension. 3. History of myocardial infarction. 4. History of coronary artery disease/stent. 5. History of Billroth II surgery. 6. History of nicotine dependence. 7. History of chronic obstructive pulmonary disease. 8. Mild hyponatremia. 9. Anemia as expected. RECOMMENDATIONS AND DISCUSSION: Continue current medications, management and symptomatic treatment. Otherwise patient is slated to go to rehab. Continue the rest of medications. Follow up closely with primary physician, Dr. Gonzalez Cueva after discharge to rehab. Further recommendations to follow. MMANTL / LENARD: [id number] /
== END 2017-07-16 17:50 | DRG 481 ==
LOC: EC 21:41 → 3SUR 23:30
PROVIDERS: ADMIT Orthopaedic Surgery Orthopaedic Surgery of the Spine; ATTEND Orthopaedic Surgery Orthopaedic Surgery of the Spine
PROC: 0QS736Z Reposition Left Upper Femur with Intramedullary Internal Fixation Device, Percutaneous Approach (ICD-10-PCS; principal; 2017-07-13 12:11)
DX: S72.142A Displaced intertrochanteric fracture of left femur, initial encounter for closed fracture (principal); E87.1 Hypo-osmolality and hyponatremia; D64.9 Anemia, unspecified; J44.9 Chronic obstructive pulmonary disease, unspecified; F17.200 Nicotine dependence, unspecified, uncomplicated; I10 Essential (primary) hypertension; S50.02XA Contusion of left elbow, initial encounter; I25.2 Old myocardial infarction; I25.10 Atherosclerotic heart disease of native coronary artery without angina pectoris; K21.9 Gastro-esophageal reflux disease without esophagitis; Z79.899 Other long term (current) drug therapy; Z79.82 Long term (current) use of aspirin; Z90.49 Acquired absence of other specified parts of digestive tract; Z95.5 Presence of coronary angioplasty implant and graft; W11.XXXA Fall on and from ladder, initial encounter; Y92.009 Unspecified place in unspecified non-institutional (private) residence as the place of occurrence of the external cause
CPT/HCPCS: 36415; 71045; 72170; 73502; 80048; 81003; 83735; 85025; 85610; 85730; 88305; 88311; 93005; 94640; 96374; 99285

== ENCOUNTER 2020-04-01 12:53 | Inpatient (IN) | payer OTHER, MEDICARE ==
[2020-04-01 13:05] VITALS: TEMP 98.1
--- NOTE | 2020-04-01 13:46 | CT ---
EXAMINATION TYPE: CT brain wo con DATE OF EXAM: 04/01/2020 COMPARISON: None HISTORY: Neuro deficits, left side facial droop CT DLP: 1107 mGycm Automated exposure control for dose reduction was used. FINDINGS: Low density in the basal ganglia and thalamus bilaterally likely related to remote lacunar infarct. M oderate generalized degenerative change with nonspecific low attenuation in the white matter. Most li isabell on the basis of remote white matter ischemia. No midline shift or mass effect. Calvarium intact. No acute hemorrhage. Changes of chronic sinusitis noted. There is a 2.4 x 1.4 cm CS F fluid collection in the anterior left temporal fossa compatible with a small arachnoid cyst. IMPRESSION: DEGENERATIVE AND NONSPECIFIC WHITE MATTER CHANGES MOST TYPICAL REMOTE ISCHEMIA. NO ACUTE HEMORRHAGE O R MASS EFFECT. IF THERE IS CONCERN FOR ACUTE ISCHEMIA CONSIDER FOLLOW-UP MRI CLINICALLY WARRANTED.
[2020-04-01 13:51] LABS: Basophils # (A) 0.1 k/uL (0-0.2); Basophils % (A) 2 %; Eosinophils # (A) 0.1 k/uL (0-0.7); Eosinophils % (A) 2 %; HCT 42.6 % (39.0-53.0); HGB 14.7 gm/dL (13.0-17.5); Lymphocytes # (A) 1.3 k/uL (1.0-4.8); Lymphocytes % (A) 18 %; MCH 30.8 pg (25.0-35.0); MCHC 34.6 g/dL (31.0-37.0); MCV 88.9 fL (80.0-100.0); Mean Platelet Volume 7.5; Monocytes # (A) 0.4 k/uL (0-1.0); Monocytes % (A) 5 %; Neutrophils # (A) 5.4 k/uL (1.3-7.7); Neutrophils % (A) 72 %; Platelet Count 220 k/uL (150-450); RBC 4.79 m/uL (4.30-5.90); RDW 12.6 % (11.5-15.5); WBC 7.5 k/uL (3.8-10.6)
[2020-04-01 14:01] LABS: INR 0.9 (<1.2); Partial Thromboplastin Time 25.6 sec (22.0-30.0); Prothrombin Time 9.8 sec (9.0-12.0)
[2020-04-01 14:02] LABS: Albumin 4.1 g/dL (3.5-5.0); Calcium 8.8 mg/dL (8.4-10.2); Potassium 4.1 mmol/L (3.5-5.1); Total Bilirubin 0.6 mg/dL (0.2-1.3); Total Protein 6.9 g/dL (6.3-8.2)
--- NOTE | 2020-04-01 14:09 | CT ---
EXAMINATION TYPE: CT angio head neck DATE OF EXAM: 04/01/2020 HISTORY: Neuro deficit COMPARISON: CT DLP: 360 mGycm. Automated Exposure Control for Dose Reduction was Utilized. TECHNIQUE: CTA scan of the neck is performed with IV Contrast, patient injected with 65 mL of Isovue 370, axial images are obtained, coronal and sagittal reformatted images are reviewed. Three-D recons tructed images are created on an independent workstation and reviewed. Source images are reviewed. FINDINGS: Carotid/Vascular Structures: There is a three-vessel arch. Internal carotid arteries appear normal to the skull base. The common carotid arteries bifurcate normally to internal and external carotid [place]. Right vertebral artery is not identified in the extracerebral region. Some retrograde flow from collateral flow may be present within the distal right vertebral artery at the skull base Cervical of [place]: Vertebral basilar system appears normal. Posterior cerebral vasculature is unrema rkable. Internal carotid arteries bifurcate normally into A1 and M1 segments. A2 segments are normal. Additionally, there is an azygos A2 segment. The anterior communicating artery is patent. Left [place] communicating artery is patent. Right posterior communicating artery is patent. Other: Lung apices are normal. Portion of the thyroid visualized is normal. The left vertebral artery is dominant. Right vertebral artery is not clearly identified contrast IMPRESSION: 1. No flow-limiting stenosis bilateral carotid bifurcations. 2. Normal [place] of [place] 3. Nonvisualization of the right vertebral artery
[2020-04-01] MEDS ORDERED: ASPIRIN 325 MG TAB PO STA (14:23)
[2020-04-01 14:51] VITALS: PULSE 61
[2020-04-01] MEDS ORDERED: NALOXONE 0.4 MG/ML 1 ML VIAL IV PRN (14:51)
--- NOTE | 2020-04-01 14:51 | XR ---
EXAMINATION TYPE: XR chest 2V DATE OF EXAM: 04/01/2020 COMPARISON: 07/12/2017 INDICATION: Slurred speech, history of smoking TECHNIQUE: Frontal and lateral views of the chest are obtained. FINDINGS: The heart size is normal. The pulmonary vasculature is normal. The lungs are clear. There is hyperinflation flattening the diaphragms compatible COPD. IMPRESSION: 1. COPD. 2. If clinically indicated, low-dose CT chest for lung cancer screening can be performed.
--- NOTE | 2020-04-01 14:51 | ED ---
Neuro HPI <Sunny Sung - Last Filed: 04/01/20 17:31> - General Source: patient, family Mode of arrival: wheelchair Limitations: physical limitation - History of Present Illness Is the patient presenting with stroke symptoms?: Yes <Ashlyn Bloom - Last Filed: 04/03/20 11:48> - General Chief Complaint: Neuro Symptoms/Deficit Stated Complaint: Slurred Speech, Neuro Symptoms Time Seen by Provider: 04/01/20 13:00 - History of Present Illness Initial Comments: Patient is a 79-year-old male who presents to the emergency room with reported left-sided facial droop. is at bedside and provides a history because he is hard of hearing. She states that yesterday the patient was having some weakness in his left upper extremity. Symptoms appeared to have improved when he went to bed. He awoke this morning with notable left-sided facial droop and difficulties with ambulation. No previous history of CVA. Patient denies any weakness in his upper or lower extremities. Denies any chest pain or shortness of breath. No fevers or chills. No ripping or tearing sensation to his back. He is not on any blood thinners. No other alleviating, precipitating or modifying factors (Ashlyn Bloom) - Related Data Home Medications: Home Medications Medication Instructions Recorded Confirmed Aspirin EC [Ecotrin Low Dose] 81 mg PO DAILY 04/01/20 04/01/20 Lisinopril-Hctz 20-12.5 mg 1 tab PO DAILY 04/01/20 04/01/20 [Zestoretic 20-12.5] Allergies/Adverse Reactions: Allergies Allergy/AdvReac Type Severity Reaction Status Date / Time No Known Allergies Allergy Verified 04/01/20 13:48 Review of Systems ROS Other: All systems not noted in ROS Statement are negative. <Sunny Sung - Last Filed: 04/01/20 17:31> ROS Other: All systems not noted in ROS Statement are negative. <Ashlyn Bloom - Last Filed: 04/03/20 11:48> ROS Statement: Those systems with pertinent positive or pertinent negative responses have been documented in the HPI. General Exam Limitations: physical limitation General appearance: alert, in no apparent distress Head exam: Present: atraumatic, normocephalic Eye exam: Present: normal appearance, PERRL, EOMI. Absent: scleral icterus, conjunctival injection, periorbital swelling ENT exam: Present: other (left sided facial droop) Neck exam: Present: normal inspection. Absent: tenderness, meningismus, lymphadenopathy Respiratory exam: Present: normal lung sounds bilaterally. Absent: respiratory distress, wheezes, rales, rhonchi, stridor Cardiovascular Exam: Present: regular rate, normal rhythm, normal heart sounds. Absent: systolic murmur, diastolic murmur, rubs, gallop, clicks GI/Abdominal exam: Present: soft, normal bowel sounds. Absent: distended, tenderness, guarding, rebound, rigid <Ashlyn Bloom - Last Filed: 04/03/20 11:48> Stroke MDM - Lab Data Result diagrams: 04/01/20 13:33 04/01/20 13:33 <Sunny Sung - Last Filed: 04/01/20 17:31> - Lab Data Result diagrams: 04/01/20 13:33 04/01/20 13:33 <Ashlyn Bloom - Last Filed: 04/03/20 11:48> - Lab Data Lab Results 04/01/20 04/01/20 04/01/20 Range/Units 13:33 13:33 13:33 WBC 7.5 (3.8-10.6) k/uL RBC 4.79 (4.30-5.90) m/uL Hgb 14.7 (13.0-17.5) gm/dL Hct 42.6 (39.0-53.0) % MCV 88.9 (80.0-100.0) fL MCH 30.8 (25.0-35.0) pg MCHC 34.6 (31.0-37.0) g/dL RDW 12.6 (11.5-15.5) % Plt Count 220 (150-450) k/uL MPV 7.5 Neutrophils % 72 % Lymphocytes % 18 % Monocytes % 5 % Eosinophils % 2 % Basophils % 2 % Neutrophils # 5.4 (1.3-7.7) k/uL Lymphocytes # 1.3 (1.0-4.8) k/uL Monocytes # 0.4 (0-1.0) k/uL Eosinophils # 0.1 (0-0.7) k/uL Basophils # 0.1 (0-0.2) k/uL PT 9.8 (9.0-12.0) sec INR 0.9 (<1.2) APTT 25.6 (22.0-30.0) sec Sodium 132 L (137-145) mmol/L Potassium 4.1 (3.5-5.1) mmol/L Chloride 95 L (98-107) mmol/L Carbon Dioxide 31 H (22-30) mmol/L Anion Gap 6 mmol/L BUN 13 (9-20) mg/dL Creatinine 1.12 (0.66-1.25) mg/dL Est GFR (CKD-EPI)AfAm 73 (>60 ml/min/1.73 sqM) Est GFR (CKD-EPI)NonAf 63 (>60 ml/min/1.73 sqM) Glucose 98 (74-99) mg/dL Calcium 8.8 (8.4-10.2) mg/dL Total Bilirubin 0.6 (0.2-1.3) mg/dL AST 20 (17-59) U/L ALT 12 (4-49) U/L Alkaline Phosphatase 120 (38-126) U/L Troponin I (0.000-0.034) ng/mL Total Protein 6.9 (6.3-8.2) g/dL Albumin 4.1 (3.5-5.0) g/dL Triglycerides (<150) mg/dL Cholesterol (<200) mg/dL LDL Cholesterol, Calc (0-99) mg/dL HDL Cholesterol (40-60) mg/dL 04/01/20 04/01/20 Range/Units 13:33 15:05 WBC (3.8-10.6) k/uL RBC (4.30-5.90) m/uL Hgb (13.0-17.5) gm/dL Hct (39.0-53.0) % MCV (80.0-100.0) fL MCH (25.0-35.0) pg MCHC (31.0-37.0) g/dL RDW (11.5-15.5) % Plt Count (150-450) k/uL MPV Neutrophils % % Lymphocytes % % Monocytes % % Eosinophils % % Basophils % % Neutrophils # (1.3-7.7) k/uL Lymphocytes # (1.0-4.8) k/uL Monocytes # (0-1.0) k/uL Eosinophils # (0-0.7) k/uL Basophils # (0-0.2) k/uL PT (9.0-12.0) sec INR (<1.2) APTT (22.0-30.0) sec Sodium (137-145) mmol/L Potassium (3.5-5.1) mmol/L Chloride (98-107) mmol/L Carbon Dioxide (22-30) mmol/L Anion Gap mmol/L BUN (9-20) mg/dL Creatinine (0.66-1.25) mg/dL Est GFR (CKD-EPI)AfAm (>60 ml/min/1.73 sqM) Est GFR (CKD-EPI)NonAf (>60 ml/min/1.73 sqM) Glucose (74-99) mg/dL Calcium (8.4-10.2) mg/dL Total Bilirubin (0.2-1.3) mg/dL AST (17-59) U/L ALT (4-49) U/L Alkaline Phosphatase (38-126) U/L Troponin I <0.012 (0.000-0.034) ng/mL Total Protein (6.3-8.2) g/dL Albumin (3.5-5.0) g/dL Triglycerides 92 (<150) mg/dL Cholesterol 139 (<200) mg/dL LDL Cholesterol, Calc 78 (0-99) mg/dL HDL Cholesterol 43 (40-60) mg/dL - Medical Decision Making Nurse brought to my attention that patient wanted to leave AGAINST MEDICAL ADVICE. I do not see the patient however I did review his chart. Patient was brought to the emergency department for left-sided facial droop, left upper extremity weakness. Symptoms improved. Upon arrival to the emergency depart ment culture was activated. There is findings of remote ischemia. CT angioma showed no large vessel occlusion. No indication for thrombolytics or neurovascular intervention. He was to be admitted with neurology on consult. At approximately 5:00 PM patient expressed to the nurse that he wants to leave AGAINST MEDICAL ADVICE. I did talk to patient to let him know that there is concern that he having a ongoing stroke that is being monitored in the hospital. Patient and family member report that they were upset and feeling care not getting adequate attention. Discussed with patient that this could be a worsening CVA that could worsen especially over night. He is told that if he goes home he could express worsening stroke which could lead to permanent neurologic deficit, permanent debility and possibly even . He understands the risks. Anaprox 5 5:[address] Resendiz was at bedside evaluating patient. Patient and family member still wanted leaving AGAINST MEDICAL ADVICE after neurology evaluation. Patient is encouraged to return to emergency Department with any worsening symptoms. Risks, Benefits, and Treatment alternatives were discussed in detail with the p atient. The patient is alert and oriented X 3 and has the capacity to make an informed decision. The risks of increased morbidity including the possibly of were explained to and understood by the patient who is choosing to leave against medical advice. The patient is encouraged to return any time should they want further treatment and diagnostic investigation. (Sunny Sung) Upon arrival code stroke was activated. NIH is 3. Discussed case with Dr. Gonzalez. Laboratory studies were performed which demonstrated a sodium of 132. CT of the patient's brain demonstrates remote ischemia. No acute hemorrhage or mass effect. CT angiography demonstrates no flow-limiting stenosis of the bilateral carotid bifurcations. Normal [place]. Nonvisualized right vertebral artery. Discuss results once again with Dr. Gonzalez who recommended aspirin, Plavix and statin. These medications are ordered. Patient remained without further neurologic deficit. Results are discussed the patient. Recommend admission for neurology consultation which the patient did agree to. Discuss case with Dr. Sparrow who accepted admission. Patient awaiting a bed on [facility]. (Ashlyn Bloom) 04/01/20 15:11 EKG demonstrates a sinus rhythm with PVCs with compensatory pause. Rate of 72. [place] interval 148. QRS 78. QTC of 435. No acute ST segment elevations or depressions (Ashlyn Bloom) Past Medical History Past Medical History: Coronary Artery Disease (CAD), Hypertension, Myocardial Infarction ([place]) Last Myocardial Infarction Date:: 2006 History of Any Multi-Drug Resistant Organisms: None Reported Past Surgical History: Hysterectomy Additional Past Surgical History / Comment(s): BILROTH 2 Past Anesthesia/Blood Transfusion Reactions: Unable to Obtain Additional Past Anesthesia/Blood Transfusion Reaction / Comment(s): pt never received blood transfusion Past Psychological History: No Psychological Hx Reported Smoking Status: Current every day smoker Past Alcohol Use History: Occasional Past Drug Use History: None Reported <Ashlyn Bloom - Last Filed: 04/03/20 11:48> Course Vital Signs 04/01/20 04/01/20 04/01/20 13:01 13:24 13:45 Temperature 98.1 F Pulse Rate 72 98 Respiratory 20 20 Rate Blood Pressure 133/86 157/111 O2 Sat by Pulse 98 82 L 98 Oximetry 04/01/20 04/01/20 04/01/20 14:00 14:15 14:30 Temperature Pulse Rate 62 59 L 69 Respiratory 17 18 16 Rate Blood Pressure 161/103 146/88 150/84 O2 Sat by Pulse 100 98 100 Oximetry 04/01/20 04/01/20 04/01/20 14:45 15:00 15:15 Temperature Pulse Rate 61 56 L 61 Respiratory 21 16 18 Rate Blood Pressure 151/86 152/95 154/97 O2 Sat by Pulse 87 L 98 99 Oximetry 04/01/20 04/01/20 04/01/20 15:30 15:45 16:00 Temperature Pulse Rate 63 61 65 Respiratory 18 14 16 Rate Blood Pressure 157/101 152/88 166/95 O2 Sat by Pulse 98 99 97 Oximetry 04/01/20 04/01/20 04/01/20 16:15 16:30 16:45 Temperature Pulse Rate 62 60 59 L Respiratory 17 17 16 Rate Blood Pressure 164/97 165/95 157/109 O2 Sat by Pulse 98 Oximetry 04/01/20 04/01/20 04/01/20 17:00 17:15 17:30 Temperature Pulse Rate 59 L 64 64 Respiratory 15 18 20 Rate Blood Pressure 168/97 O2 Sat by Pulse 98 Oximetry 04/01/20 04/01/20 17:45 18:00 Temperature Pulse Rate 58 L 61 Respiratory 18 17 Rate Blood Pressure O2 Sat by Pulse Oximetry Disposition Time of Disposition: 17:31 <Sunny Sung - Last Filed: 04/01/20 17:31> Is patient prescribed a controlled substance at d/c from ED?: No Decision to Admit Reason: Admit from EC Decision Date: 04/01/20 Decision Time: 14:50 <Ashlyn Bloom - Last Filed: 04/03/20 11:48> Clinical Impression: Cerebrovascular accident (CVA), Facial droop Disposition: Left Against Medical Advice Condition: Stable
[2020-04-01] MEDS ORDERED: CLOPIDOGREL 75 MG TAB PO ONE (15:15)
[2020-04-01] MEDS ORDERED: IPRATROPIUM-ALBUTEROL 3 ML NEB INHALATION PRN (16:28)
[2020-04-01] MEDS ORDERED: SODIUM CHLORIDE 0.9% 1,000 ML IV SCH (16:30)
--- NOTE | 2020-04-01 17:59 | P.CNNES ---
History of Present Illness Consult date: 04/01/20 Requesting physician: Ashlyn Bloom Reason for Consult: Acute left sided facial droop History of Present Illness: Patient is a 79-year-old male came to the hospital today at 12:53 PM for possible TIA versus CVA. Patient states that yesterday at around 8-9 AM he got up from the couch and had no power in the left leg and left arm. His equilibrium was off. He stayed home and by afternoon all symptoms went away. He was fine S of the day. This morning he woke up and noticed his left of the mouth was droopy with slurred speech. They decided to come to the ER. Vital signs on arrival showed blood pressure 133/86, pulse rate 72, temperature 98.1. CT head showed degenerative and nonspecific white matter changes most typical of remote ischemia. No acute hemorrhage or mass effect. There is concern for acute ischemia, consider MRI as clinically warranted. CTA of head and neck showed no flow-limiting stenosis bilateral carotid bifurcations. Normal [place]. Nonvisualization of the right vertebral artery. EKG shows undetermined rhythm. Patient does take aspirin 81 mg and Zestoretic at home. Stroke neurologist was consulted by ED staff, and patient was not a candidate for TPA. Patient was recommended aspirin Plavix and Lipitor. Patient has hypertension, hyperlipidemia but denies diabetes. He has smoked 1+ pack per day for 65 years. Review of Systems Patient has smoker's cough. Denies any chest pain, abdominal pain nausea vomiting diarrhea. He does have chronic shortness of breath. Denies any double vision or loss of vision. All other review of systems reviewed and unremarkable. No fever or chills, no sick contacts. Patient does have some bruises on his extremities. Patient is very hard of hearing. Past Medical History Past Medical History: Coronary Artery Disease (CAD), Hypertension, Myocardial Infarction ([place]) Last Myocardial Infarction Date:: 2006 History of Any Multi-Drug Resistant Organisms: None Reported Past Surgical History: Hysterectomy Additional Past Surgical History / Comment(s): BILROTH 2 Past Anesthesia/Blood Transfusion Reactions: Unable to Obtain Additional Past Anesthesia/Blood Transfusion Reaction / Comment(s): pt never received blood transfusion Past Psychological History: No Psychological Hx Reported Smoking Status: Current every day smoker Past Alcohol Use History: Occasional Past Drug Use History: None Reported Medications and Allergies Home Medications Medication Instructions Recorded Confirmed Type Aspirin EC [Ecotrin Low Dose] 81 mg PO DAILY 04/01/20 04/01/20 History Lisinopril-Hctz 20-12.5 mg 1 tab PO DAILY 04/01/20 04/01/20 History [Zestoretic 20-12.5] Allergies Allergy/AdvReac Type Severity Reaction Status Date / Time No Known Allergies Allergy Verified 04/01/20 13:48 Physical Examination - Vital Signs Vital Signs: Vital Signs Temp Pulse Resp BP Pulse Ox 04/01/20 14:45 61 21 151/86 87 L 04/01/20 14:30 69 16 150/84 100 04/01/20 14:15 59 L 18 146/88 98 04/01/20 14:00 62 17 161/103 100 04/01/20 13:45 98 20 157/111 98 04/01/20 13:24 82 L 04/01/20 13:01 98.1 F 72 20 133/86 98 Intake and Output 04/01/20 04/01/20 04/01/20 06:59 14:59 22:59 Other: Weight 57.606 kg On examination patient is an elderly male, in no acute distress. Patient is alert and awake fully oriented. Speech and language functions are normal. No aphasia or dysarthria. On cranial examination pupils are round and reactive to light. Visual rausch are full on confrontation, with no visual field neglect, extraocular muscles are intact with no nystagmus. Patient has slight flattening of the left nasolabial fold, although patient's states that this is baseline (always had a crooked smile). Tongue protrudes to the midline. Palatal elevation and sensation normal, hearing is moderately decreased, shoulder shrug normal. On muscle strength testing patient has mild left pronation but no drift. The strength is normal in arms and legs distally and proximally. Reflexes are symmetric and plantars downgoing. Sensory touch is equal with no neglect on double simultaneous stimulation. No ataxia for [id number] testing, tone and bulk of muscles normal. No obvious bruit, S1 and S2 audible, abdomen soft nontender. No peripheral edema. Patient has some ecchymosis from antiplatelets. Results - Laboratory Findings CBC and BMP: 04/01/20 13:33 04/01/20 13:33 Abnormal Lab Findings: Abnormal Labs 04/01/20 13:33 Sodium 132 L Chloride 95 L Carbon Dioxide 31 H Assessment and Plan Assessment: * Stroke/TIA, presenting with left hemiparesis. Patient states his symptoms have resolved, although patient still has mild left facial asymmetry and mild left pronation. * Hypertension * Tobacco use * Hard of hearing. Plan: * Patient is signing out AGAINST MEDICAL ADVICE. * However for stroke prevention, I would recommend dual antiplatelet medications including aspirin 81 mg and Plavix 75 mg for 3 weeks and then maintain on single antiplatelet agent Plavix 75 mg daily. * Lipitor 40 mg * Complete tobacco cessation. * 2-D echo to rule out any embolic source. * Follow up with primary physician within 1-3 days.
[2020-04-01 19:31] VITALS: BP 168/97; RESP 17
[2020-04-01] MEDS ORDERED: ATORVASTATIN 80 MG TAB PO SCH (21:00)
--- NOTE | 2020-04-01 22:04 | P.HPIM ---
History of Present Illness H&P Date: 04/01/20 Chief Complaint: Gait instability and left facial weakness Patient is a 79-year-old male with a known history of coronary artery disease with stent placement in 2017, history of bowel resection due to obstruction several years ago, hypertension, history of IA and currently everyday smoker presents to ER with complaints of left facial droop started yesterday morning along with slurred speech. He was having left leg and arm weakness. Symptoms started to resolve by evening and today morning when he woke up, his symptoms started getting worse again with slurred speech and unable to walk steadily. Patient states that his equilibrium is off. Presents to ER with his for evaluation. Denied any chest pain or shortness breath. No fever no chills. No headache or dizziness or lightheadedness. In the ER blood pressure was 157/111 and pulse 98. Stroke neurologist was consulted and patient was not a candidate for TPA. CT head in the ER showed degenerative and nonspecific white matter changes most typical remote ischemia. No acute hemorrhage or mass-effect. Consider MRI if clinically warranted. CT angiogram of the head and neck showed no flow-limiting stenosis of bilateral carotid bifurcations. Nonvisualization of the right vertebral artery. Normal [place]. EKG showed sinus rhythm. Laboratory data showed sodium 132, potassium 4.1, chloride 92 and bicarb is 31 Troponin less than 0.012 Remaining laboratory data within normal limits Review of Systems Constitutional: Patient denies any fever or chills . No generalized weakness or weight loss. Abdomen: Patient denied nausea vomiting and diarrhea and abdominal pain. Cardiovascular: Patient denies any chest pain or short of breath no palpitations. Respiratory: patient denied any cough or sputum production. No shortness of breath Neurologic: Patient denied any numbness or tingling headache.Gait instability and left facial weakness Musculoskeletal: Patient denies any complaints of joint swelling or deformity. Skin: Negative Psychiatric: Negative Endocrine: No heat or cold intolerance. No recent weight gain. Genitourinary: No dysuria or hematuria. All other 14 point ROS negative except the above Past Medical History Past Medical History: Coronary Artery Disease (CAD), Hypertension, Myocardial Infarction ([place]) Last Myocardial Infarction Date:: 2006 History of Any Multi-Drug Resistant Organisms: None Reported Past Surgical History: Hysterectomy Additional Past Surgical History / Comment(s): BILROTH 2 Past Anesthesia/Blood Transfusion Reactions: Unable to Obtain Additional Past Anesthesia/Blood Transfusion Reaction / Comment(s): pt never received blood transfusion Past Psychological History: No Psychological Hx Reported Smoking Status: Current every day smoker Past Alcohol Use History: Occasional Past Drug Use History: None Reported Medications and Allergies Home Medications Medication Instructions Recorded Confirmed Type Aspirin EC [Ecotrin Low Dose] 81 mg PO DAILY 04/01/20 04/01/20 History Lisinopril-Hctz 20-12.5 mg 1 tab PO DAILY 04/01/20 04/01/20 History [Zestoretic 20-12.5] Allergies Allergy/AdvReac Type Severity Reaction Status Date / Time No Known Allergies Allergy Verified 04/01/20 13:48 Physical Exam Vitals: Vital Signs Temp Pulse Resp BP Pulse Ox 04/01/20 14:45 61 21 151/86 87 L 04/01/20 14:30 69 16 150/84 100 04/01/20 14:15 59 L 18 146/88 98 04/01/20 14:00 62 17 161/103 100 04/01/20 13:45 98 20 157/111 98 04/01/20 13:24 82 L 04/01/20 13:01 98.1 F 72 20 133/86 98 Intake and Output 04/01/20 04/01/20 04/01/20 06:59 14:59 22:59 Other: Weight 57.606 kg PHYSICAL EXAMINATION: Patient is lying in the bed comfortably, no acute distress, awake alert and oriented.. HEENT: Normocephalic. Neck is supple. Pupils reactive. Nostrils clear. Oral cavity is moist. Ears reveal no drainage. Neck reveals no JVD, carotid bruits, or thyromegaly. CHEST EXAMINATION: Trachea is central. Symmetrical expansion. Lung rausch clear to auscultation and percussion. CARDIAC: Normal S1, S2 with no gallops. No murmurs ABDOMEN: Soft. Bowel sounds normal. No organomegaly. No abdominal bruits. Extremities: reveal no edema. No clubbing or cyanosis Neurologically awake, alert, oriented x3, Hard of hearing. Left facial asymmetry. motor strength is intact. Skin: No rash or skin lesions. Psychiatric: Coperative. Nonsuicidal Musculoskeletal: No joint swelling or deformity. Normal range of motion. Results CBC & Chem 7: 04/01/20 13:33 04/01/20 13:33 Labs: Abnormal Lab Results - Last 24 Hours (Table) 04/01/20 Range/Units 13:33 Sodium 132 L (137-145) mmol/L Chloride 95 L (98-107) mmol/L Carbon Dioxide 31 H (22-30) mmol/L Thrombosis Risk Factor Assmnt - DVT/VTE Prophylaxis DVT/VTE Prophylaxis: Pharmacologic Prophylaxis ordered Assessment and Plan Assessment: Left-sided weakness and facial droop and slurred speech. Due to acute CVA. Weakness improved currently. Coronary disease history of stent placement in 2017 Hypertension History of bowel obstruction several years ago with bowel resection Hard of hearing Ongoing nicotine addiction DVT prophylaxis with heparin subcu Plan: Patient will be continued on aspirin and Plavix. Complete stroke work-up including 2D echo will be ordered. Continue with telemetry monitoring and follow-up closely. Smoking cessation has been counseled extensively. Discussed with the patient and his at bedside in detail. Time with Patient: Greater than 30
[2020-04-01 22:19] LABS: Cholesterol 139 mg/dL (<200); HDL Cholesterol 43 mg/dL (40-60); LDL Cholesterol,Calculated 78 mg/dL (0-99); Triglycerides 92 mg/dL (<150)
[2020-04-02] MEDS ORDERED: lisinopriL 10 MG TAB PO SCH (09:00)
[2020-04-02] MEDS ORDERED: ATORVASTATIN 40 MG TAB PO SCH (09:00)
[2020-04-02] MEDS ORDERED: ASPIRIN 325 MG TAB PO SCH (09:00)
[2020-04-02] MEDS ORDERED: CLOPIDOGREL 75 MG TAB PO SCH (09:00)
== END 2020-04-01 18:09 | disposition left against medical advice (07) | DRG 65 ==
LOC: EC 12:53 → 3SCARD 15:20
PROVIDERS: ADMIT Internal Medicine; ATTEND Internal Medicine
DX: I63.9 Cerebral infarction, unspecified (principal); G81.94 Hemiplegia, unspecified affecting left nondominant side; R29.810 Facial weakness; R47.81 Slurred speech; R29.703 NIHSS score 3; E78.5 Hyperlipidemia, unspecified; I10 Essential (primary) hypertension; I49.3 Ventricular premature depolarization; I25.10 Atherosclerotic heart disease of native coronary artery without angina pectoris; H91.90 Unspecified hearing loss, unspecified ear; I25.2 Old myocardial infarction; R26.2 Difficulty in walking, not elsewhere classified; F17.210 Nicotine dependence, cigarettes, uncomplicated; Z71.6 Tobacco abuse counseling; Z79.82 Long term (current) use of aspirin; Z79.899 Other long term (current) drug therapy; Z90.49 Acquired absence of other specified parts of digestive tract; Z87.19 Personal history of other diseases of the digestive system; Z95.5 Presence of coronary angioplasty implant and graft; Z98.890 Other specified postprocedural states
CPT/HCPCS: 36415; 70450; 70496; 70498; 71046; 80053; 80061; 84484; 85025; 85610; 85730; 93005; 99285

== ENCOUNTER 2021-03-20 08:24 | Emergency (ER) | payer MEDICARE, OTHER ==
[2021-03-20 08:37] VITALS: BP 172/103; PULSE 93; RESP 18; TEMP 97.2
--- NOTE | 2021-03-20 09:14 | ED ---
General Adult HPI - General Chief complaint: Urogenital Stated complaint: trouble urinating Time Seen by Provider: 03/20/21 08:41 Source: patient, RN notes reviewed Mode of arrival: wheelchair Limitations: physical limitation - History of Present Illness Initial comments: 80-year-old male presents emergency Department chief complaint of unable to urinate. He states the last week he started having some decreased urine output, dribbling. Patient states that he is now been unable to urinate. He states she's never had any issues like this in the past no prior prostate issues. Patient denies fevers chills no prior dysuria no other complaints. - Related Data Home Medications Medication Instructions Recorded Confirmed Aspirin EC [Ecotrin Low Dose] 81 mg PO DAILY 04/01/20 04/01/20 Lisinopril-Hctz 20-12.5 mg 1 tab PO DAILY 04/01/20 04/01/20 [Zestoretic 20-12.5] Previous Rx's Medication Instructions Recorded Cephalexin [Keflex] 500 mg PO Q8HR #21 cap 03/20/21 Tamsulosin [Flomax] 0.4 mg PO DAILY #7 cap 03/20/21 Allergies Allergy/AdvReac Type Severity Reaction Status Date / Time No Known Allergies Allergy Verified 04/01/20 13:48 Review of Systems ROS Statement: Those systems with pertinent positive or pertinent negative responses have been documented in the HPI. ROS Other: All systems not noted in ROS Statement are negative. Past Medical History Past Medical History: Coronary Artery Disease (CAD), Hearing Disorder / Deafness, Hypertension, Myocardial Infarction ([place]) Last Myocardial Infarction Date:: 2006 History of Any Multi-Drug Resistant Organisms: None Reported Past Surgical History: Hysterectomy Additional Past Surgical History / Comment(s): BILROTH 2 Past Anesthesia/Blood Transfusion Reactions: Unable to Obtain Additional Past Anesthesia/Blood Transfusion Reaction / Comment(s): pt never received blood transfusion Past Psychological History: No Psychological Hx Reported Smoking Status: Current every day smoker Past Alcohol Use History: Occasional Past Drug Use History: None Reported General Exam Limitations: physical limitation General appearance: alert, in no apparent distress Head exam: Present: atraumatic, normocephalic, normal inspection Eye exam: Present: normal appearance, PERRL, EOMI. Absent: scleral icterus, conjunctival injection, periorbital swelling Respiratory exam: Present: normal lung sounds bilaterally. Absent: respiratory distress, wheezes, rales, rhonchi, stridor Cardiovascular Exam: Present: regular rate, normal rhythm, normal heart sounds. Absent: systolic murmur, diastolic murmur, rubs, gallop, clicks GI/Abdominal exam: Present: soft, distended (Lower abdomen), normal bowel sounds. Absent: tenderness, guarding, rebound, rigid Course Vital Signs 03/20/21 08:30 Temperature 97.2 F L Pulse Rate 93 Respiratory 18 Rate Blood Pressure 172/103 O2 Sat by Pulse 98 Oximetry Medical Decision Making - Medical Decision Making 80-year-old presented for urinary retention. Shirley catheter was placed over 1500mls urine out patient does have some noted blood, bacteria may be from catheterization patiently for catheter and will follow-up with urology return from discussed. - Lab Data Lab Results 03/20/21 Range/Units Unknown Urine Color Yellow Urine Appearance Clear (Clear) Urine pH 7.0 (5.0-8.0) Ur Specific [place] 1.010 (1.001-1.035) Urine Protein Negative (Negative) Urine Glucose (UA) Negative (Negative) Urine Ketones Negative (Negative) Urine Blood Large H (Negative) Urine Nitrite Negative (Negative) Urine Bilirubin Negative (Negative) Urine Urobilinogen <2.0 (<2.0) mg/dL Ur Leukocyte Esterase Negative (Negative) Urine RBC >182 H (0-5) /hpf Urine WBC 7 H (0-5) /hpf Urine Bacteria Rare H (None) /hpf Disposition Clinical Impression: Urinary retention Disposition: HOME SELF-CARE Condition: Stable Instructions (If sedation given, give patient instructions): Urinary Retention in Men (ED) Additional Instructions: Please return to the Emergency Department if symptoms worsen or any other concerns. Prescriptions: Tamsulosin [Flomax] 0.4 mg PO DAILY #7 cap Cephalexin [Keflex] 500 mg PO Q8HR #21 cap Is patient prescribed a controlled substance at d/c from ED?: No Referrals: [facility],Clinic [Primary Care Provider] - 1-2 days Rajesh Diez MD [STAFF PHYSICIAN] - 1-2 days Time of Disposition: 10:14
[2021-03-20 09:55] LABS: Appearance,Urine Clear (Clear); Bacteria,Urine Rare /hpf; Bilirubin,Urine Negative (Negative); Blood,Urine Large (Negative); Color,Urine Yellow; Glucose,Urine (UA) Negative (Negative); Ketones,Urine Negative (Negative); Leukocyte Esterase,Urine Negative (Negative); Nitrite,Urine Negative (Negative); Protein,Urine Negative (Negative); RBC,Urine >182 /hpf (0-5); Urobilinogen,Urine <2.0 mg/dL (<2.0); WBC,Urine 7 /hpf (0-5)
== END 2021-03-20 10:35 | disposition home or self-care (01) ==
LOC: EC 08:24
DX: R33.9 Retention of urine, unspecified (principal); I10 Essential (primary) hypertension; I25.10 Atherosclerotic heart disease of native coronary artery without angina pectoris; I25.2 Old myocardial infarction; F17.200 Nicotine dependence, unspecified, uncomplicated; Z79.82 Long term (current) use of aspirin; Z79.899 Other long term (current) drug therapy
CPT/HCPCS: 51702; 51798; 81001; 99283

== ENCOUNTER 2021-03-30 20:44 | Emergency (ER) | payer OTHER ==
[2021-03-30 22:46] VITALS: TEMP 98.5
[2021-03-31 00:53] LABS: Appearance,Urine Clear (Clear); Bacteria,Urine Moderate /hpf; Bilirubin,Urine Negative (Negative); Blood,Urine Trace (Negative); Color,Urine Yellow; Glucose,Urine (UA) Negative (Negative); Ketones,Urine Negative (Negative); Leukocyte Esterase,Urine Moderate (Negative); Mucus,Urine Rare /hpf; Nitrite,Urine Negative (Negative); Protein,Urine Negative (Negative); RBC,Urine 3 /hpf (0-5); Specific Gravity,Urine 1.006 (1.001-1.035); Urobilinogen,Urine <2.0 mg/dL (<2.0); WBC,Urine 28 /hpf (0-5)
[2021-03-31] MEDS ORDERED: SULFAMETH-TMP DS STARTER PACK 2 TAB BTL PO STA (01:00)
--- NOTE | 2021-03-31 01:00 | ED ---
Male Urogenital HPI - General Chief complaint: Urogenital Stated complaint: Unable to void Time Seen by Provider: 03/30/21 23:31 Source: patient Mode of arrival: ambulatory Limitations: no limitations - History of Present Illness Initial comments: 80 year-old male patient presents for evaluation due to inability to void. States he had phillips catheter removed at 0800 this morning. Was told if he did not urinate by 8pm he should come in to have another catheter placed. Patient initially had the catheter put in about two weeks ago after having acute urinary retention. Per daughter they felt it was related to a urinary tract infection. Patient states he has been taking antibiotics. He denies any fever or chills. He is eating and drinking without difficulty. Has been seeing Dr. Abreu for urology. - Related Data Home Medications Medication Instructions Recorded Confirmed Aspirin EC [Ecotrin Low Dose] 81 mg PO DAILY 04/01/20 04/01/20 Lisinopril-Hctz 20-12.5 mg 1 tab PO DAILY 04/01/20 04/01/20 [Zestoretic 20-12.5] Previous Rx's Medication Instructions Recorded Cephalexin [Keflex] 500 mg PO Q8HR #21 cap 03/20/21 Tamsulosin [Flomax] 0.4 mg PO DAILY #7 cap 03/20/21 Sulfamethoxazole/Trimethoprim 1 each PO BID #20 tablet 03/31/21 [Bactrim DS 800-160 mg] Allergies Allergy/AdvReac Type Severity Reaction Status Date / Time No Known Allergies Allergy Verified 03/30/21 22:47 Review of Systems ROS Statement: Those systems with pertinent positive or pertinent negative responses have been documented in the HPI. ROS Other: All systems not noted in ROS Statement are negative. Past Medical History Past Medical History: Coronary Artery Disease (CAD), Hearing Disorder / Deafness, Hypertension, Myocardial Infarction ([place]) Last Myocardial Infarction Date:: 2006 History of Any Multi-Drug Resistant Organisms: None Reported Past Surgical History: Hysterectomy Additional Past Surgical History / Comment(s): BILROTH 2 Past Anesthesia/Blood Transfusion Reactions: Unable to Obtain Additional Past Anesthesia/Blood Transfusion Reaction / Comment(s): pt never received blood transfusion Past Psychological History: No Psychological Hx Reported Smoking Status: Current every day smoker Past Alcohol Use History: Occasional Past Drug Use History: None Reported General Exam Limitations: no limitations General appearance: alert, in no apparent distress, other (Social well- developed, thin appearing elderly male patient in no acute distress.) ENT exam: Present: normal exam, normal oropharynx, mucous membranes moist Respiratory exam: Present: normal lung sounds bilaterally. Absent: respiratory distress, wheezes, rales, rhonchi, stridor Cardiovascular Exam: Present: regular rate, normal rhythm, normal heart sounds. Absent: systolic murmur, diastolic murmur, rubs, gallop, clicks GI/Abdominal exam: Present: soft, tenderness (Suprapubic), normal bowel sounds. Absent: distended, guarding, rebound, rigid Neurological exam: Present: alert, oriented X3, CN II-XII intact Psychiatric exam: Present: normal affect, normal mood Skin exam: Present: warm, dry, intact, normal color. Absent: rash Course Vital Signs 03/30/21 03/31/21 03/31/21 22:41 00:28 02:00 Temperature 98.5 F Pulse Rate 80 84 87 Respiratory 16 18 18 Rate Blood Pressure 154/90 140/78 144/84 O2 Sat by Pulse 97 98 98 Oximetry Medical Decision Making - Medical Decision Making 80-year-old male patient presented to the emergency department for inability to void. At couple he Removed at 0800. Physical exam did reveal suprapubic tenderness. Bladder scan did reveal over 600 mL in his bladder. Phillips catheter was inserted he did have around 1200 mL of output. This was sent for urinalysis which showed elevated white blood cells and bacteria. He is just finishing keflex, will change this to bactrim. Instructed to follow-up with Dr. Abreu for further evaluation and treatment. Return parameters were discussed in detail. He verbalizes understanding and agrees with this plan. My attending is Dr. Garcia. - Lab Data Lab Results 03/30/21 Range/Units 00:30 Urine Color Yellow Urine Appearance Clear (Clear) Urine pH 6.0 (5.0-8.0) Ur Specific [place] 1.006 (1.001-1.035) Urine Protein Negative (Negative) Urine Glucose (UA) Negative (Negative) Urine Ketones Negative (Negative) Urine Blood Trace H (Negative) Urine Nitrite Negative (Negative) Urine Bilirubin Negative (Negative) Urine Urobilinogen <2.0 (<2.0) mg/dL Ur Leukocyte Esterase Moderate H (Negative) Urine RBC 3 (0-5) /hpf Urine WBC 28 H (0-5) /hpf Urine Bacteria Moderate H (None) /hpf Urine Mucus Rare H (None) /hpf Disposition Clinical Impression: Urinary tract infection, Urinary retention Disposition: HOME SELF-CARE Condition: Good Instructions (If sedation given, give patient instructions): Urinary Retention in Men (ED), Urinary Tract Infection in Men (ED), Phillips Catheter Placement and Care (ED) Additional Instructions: Take antibiotics as directed. Follow-up with urology for further evaluation as soon as possible. Return for any new, worsening, or concerning symptoms. Prescriptions: Sulfamethoxazole/Trimethoprim [Bactrim DS 800-160 mg] 1 each PO BID #20 tablet Is patient prescribed a controlled substance at d/c from ED?: No Referrals: [facility],Clinic [Primary Care Provider] - 1-2 days Time of Disposition: 00:59
[2021-03-31 02:09] VITALS: RESP 18
[2021-03-31 02:10] VITALS: BP 144/84; PULSE 87
== END 2021-03-31 02:11 | disposition home or self-care (01) ==
LOC: EC 20:44
DX: R33.9 Retention of urine, unspecified (principal); N39.0 Urinary tract infection, site not specified; Z79.82 Long term (current) use of aspirin; I25.10 Atherosclerotic heart disease of native coronary artery without angina pectoris; I10 Essential (primary) hypertension; I25.2 Old myocardial infarction; Z90.89 Acquired absence of other organs; Z90.79 Acquired absence of other genital organ(s)
CPT/HCPCS: 51702; 51798; 81001; 87077; 87086; 87186; 99284

== ENCOUNTER 2021-05-04 00:06 | Emergency (ER) | payer OTHER ==
--- NOTE | 2021-05-04 00:59 | ED ---
Male Urogenital HPI - General Stated complaint: Urine Retention Time Seen by Provider: 05/04/21 00:57 - History of Present Illness Initial comments: 80 year-old male patient presents to the emergency department for evaluation of urinary retention. He had the phillips catheter removed at Dr. Arbeu's office today. States he has not been able to urinate since have the catheter removed. States they did a urinalysis which showed no infection. Dr. Abreu instructed them to come in for catheter replacement. States he had a septic UTI which required the catheter in thefirst place. He denies current fever or chills. Denies any vomiting. - Related Data Home Medications Medication Instructions Recorded Confirmed Aspirin EC [Ecotrin Low Dose] 81 mg PO DAILY 04/01/20 04/01/20 Lisinopril-Hctz 20-12.5 mg 1 tab PO DAILY 04/01/20 04/01/20 [Zestoretic 20-12.5] Previous Rx's Medication Instructions Recorded Cephalexin [Keflex] 500 mg PO Q8HR #21 cap 03/20/21 Tamsulosin [Flomax] 0.4 mg PO DAILY #7 cap 03/20/21 Sulfamethoxazole/Trimethoprim 1 each PO BID #20 tablet 03/31/21 [Bactrim DS 800-160 mg] Allergies Allergy/AdvReac Type Severity Reaction Status Date / Time No Known Allergies Allergy Verified 05/04/21 00:58 Review of Systems ROS Statement: Those systems with pertinent positive or pertinent negative responses have been documented in the HPI. ROS Other: All systems not noted in ROS Statement are negative. Past Medical History Past Medical History: Coronary Artery Disease (CAD), Hearing Disorder / Deafness, Hypertension, My[place] Infarction ([place]) Last Myocardial Infarction Date:: 2006 History of Any Multi-Drug Resistant Organisms: None Reported Past Surgical History: Hysterectomy Additional Past Surgical History / Comment(s): BILROTH 2 Past Anesthesia/Blood Transfusion Reactions: Unable to Obtain Additional Past Anesthesia/Blood Transfusion Reaction / Comment(s): pt never received blood transfusion Past Psychological History: No Psychological Hx Reported Smoking Status: Current every day smoker Past Alcohol Use History: Occasional Past Drug Use History: None Reported General Exam Limitations: physical limitation (hard of hearing) General appearance: alert, in no apparent distress, other (This is a well developed, thin appearing adult male in mild distress related to pain. ) ENT exam: Present: normal exam, normal oropharynx, mucous membranes moist Respiratory exam: Present: normal lung sounds bilaterally. Absent: respiratory distress, wheezes, rales, rhonchi, stridor Cardiovascular Exam: Present: regular rate, normal rhythm, normal heart sounds. Absent: systolic murmur, diastolic murmur, rubs, gallop, clicks GI/Abdominal exam: Present: soft, tenderness (Suprapubic tenderness), normal bowel sounds. Absent: distended, guarding, rebound, rigid Neurological exam: Present: alert, oriented X3, CN II-XII intact Psychiatric exam: Present: normal affect, normal mood Skin exam: Present: warm, dry, intact, normal color. Absent: rash Course Vital Signs 05/04/21 00:58 Temperature 98 F Pulse Rate 102 H Respiratory 20 Rate Blood Pressure 148/97 O2 Sat by Pulse 98 Oximetry Medical Decision Making - Medical Decision Making 80-year-old male patient presented to the emergency department today for evaluation of urinary retention after having Phillips catheter removed approximately 12 hours ago. Physical examination did reveal distended and tender suprapubic abdomen. No CVA tenderness. No fever. Initially patient did have mild tachycardia. Other vitals were unremarkable. Did insert Phillips catheter, had 1600 mL of urine output. He is feeling better. He'll be discharged to follow up with Dr. Easton for further evaluation tomorrow. Return parameters were discussed in detail. He verbalizes understanding and agrees with this plan. My attending is Dr. Garcia. Disposition Clinical Impression: Urinary retention Disposition: HOME SELF-CARE Condition: Good Instructions (If sedation given, give patient instructions): Urinary Retention in Men (ED) Additional Instructions: Follow up with Dr. Easton for recheck as soon as possible. Return for any new, worsening, or concerning symptoms. Is patient prescribed a controlled substance at d/c from ED?: No Referrals: [facility],Clinic [Primary Care Provider] - 1-2 days Time of Disposition: 02:23
[2021-05-04 01:03] VITALS: TEMP 98
[2021-05-04 03:30] VITALS: BP 141/91; PULSE 72; RESP 16
== END 2021-05-04 03:31 | disposition home or self-care (01) ==
LOC: EC 00:06
DX: R33.9 Retention of urine, unspecified (principal); I25.10 Atherosclerotic heart disease of native coronary artery without angina pectoris; I10 Essential (primary) hypertension; I25.2 Old myocardial infarction; F17.200 Nicotine dependence, unspecified, uncomplicated; Z72.89 Other problems related to lifestyle; Z79.82 Long term (current) use of aspirin; Z79.899 Other long term (current) drug therapy
CPT/HCPCS: 51702; 99283

== ENCOUNTER → 2021-05-25 | Outpatient (CLI) | payer OTHER ==
[2021-05-25 14:18] LABS: Basophils # (A) 0.1 k/uL (0-0.2); Basophils % (A) 1 %; Eosinophils # (A) 0.1 k/uL (0-0.7); Eosinophils % (A) 1 %; HCT 40.3 % (39.0-53.0); HGB 13.1 gm/dL (13.0-17.5); Lymphocytes # (A) 1.1 k/uL (1.0-4.8); Lymphocytes % (A) 17 %; MCH 29.5 pg (25.0-35.0); MCHC 32.6 g/dL (31.0-37.0); MCV 90.4 fL (80.0-100.0); Mean Platelet Volume 7.4; Monocytes # (A) 0.3 k/uL (0-1.0); Monocytes % (A) 5 %; Neutrophils # (A) 4.9 k/uL (1.3-7.7); Neutrophils % (A) 75 %; Platelet Count 328 k/uL (150-450); RBC 4.45 m/uL (4.30-5.90); RDW 13.7 % (11.5-15.5); WBC 6.5 k/uL (3.8-10.6)
[2021-05-25 14:31] LABS: Amorphous Sediment,Urine Rare /hpf; Appearance,Urine Cloudy (Clear); Bacteria,Urine Moderate /hpf; Bilirubin,Urine Negative (Negative); Blood,Urine Large (Negative); Color,Urine Yellow; Glucose,Urine (UA) Negative (Negative); Ketones,Urine Negative (Negative); Leukocyte Esterase,Urine Large (Negative); Nitrite,Urine Negative (Negative); PH, Urine 6.5 (5.0-8.0); Protein,Urine 1+ (Negative); RBC,Urine >182 /hpf (0-5); Specific Gravity,Urine 1.012 (1.001-1.035); Squamous Epithelial Cell,Urine 1 /hpf (0-4); Urobilinogen,Urine <2.0 mg/dL (<2.0); WBC,Urine 66 /hpf (0-5)
[2021-05-25 14:39] LABS: ALT 13 U/L (4-49); AST 21 U/L (17-59); African American GFR (CKD) >90 (>60 ml/min/1.73 sqM); Albumin 3.9 g/dL (3.5-5.0); Alkaline Phosphatase 104 U/L (38-126); Anion Gap 8 mmol/L; Blood Urea Nitrogen 17 mg/dL (9-20); Calcium 8.9 mg/dL (8.4-10.2); Carbon Dioxide 27 mmol/L (22-30); Chloride 90 mmol/L (98-107); Glucose 72 mg/dL (74-99); Non-African American GFR(CKD) 83 (>60 ml/min/1.73 sqM); Potassium 5.2 mmol/L (3.5-5.1); Sodium 125 mmol/L (137-145); Total Bilirubin 0.4 mg/dL (0.2-1.3); Total Protein 6.5 g/dL (6.3-8.2)
== END | disposition home or self-care (01) ==
LOC: LABPAT 13:23
PROVIDERS: ATTEND Urology
DX: Z01.812 Encounter for preprocedural laboratory examination (principal); R33.9 Retention of urine, unspecified; N40.1 Benign prostatic hyperplasia with lower urinary tract symptoms; I10 Essential (primary) hypertension
CPT/HCPCS: 36415; 80053; 81001; 85025; 87086

== ENCOUNTER 2021-06-01 06:48 | Day surgery (SDC) | payer OTHER ==
[2021-05-24 14:36] VITALS: BMI 15.7
--- NOTE | 2021-05-31 20:36 | P.GSHP ---
History of Present Illness H&P Date: 05/31/21 80 yo male with a history of bph followed by persistent urinary retention despite medicaal management. Cystoscopy identifies an enlarged trilobe obstructing prostate. he has paul given treatment optins and has chosen bipolar turp. He has been placed on antibiotics preop. He comes for turp - Constitutional Constitutional: Denies chills, Denies fever - EENT Eyes: denies blurred vision, denies pain Ears, nose, mouth and throat: Denies headache, Denies sore throat - Cardiovascular Cardiovascular: Denies chest pain, Denies shortness of breath - Respiratory Respiratory: Denies cough, Denies 7 - Gastrointestinal Gastrointestinal: Denies abdominal pain, Denies diarrhea, Denies nausea, Denies vomiting - Genitourinary (Female) Genitourinary: Denies dysuria, Denies hematuria - Genitourinary (Male) Genitourinary: Denies dysuria, Denies hematuria - Musculoskeletal Musculoskeletal: Denies myalgias - Integumentary Integumentary: Denies pruritus, Denies rash - Neurological Neurological: Denies numbness, Denies weakness - Psychiatric Psychiatric: Denies anxiety, Denies depression - Endocrine Endocrine: Denies fatigue, Denies weight change Past Medical History Past Medical History: Coronary Artery Disease (CAD), COPD, CVA/TIA, Hearing Disorder / Deafness, Hypertension, Myocardial Infarction ([place]), Osteoarthritis ([place]), Prostate Disorder Last Myocardial Infarction Date:: 2006 History of Any Multi-Drug Resistant Organisms: None Reported Past Surgical History: Appendectomy, Heart Catheterization With Stent, Tonsillectomy Additional Past Surgical History / Comment(s): BILROTH 2 Past Anesthesia/Blood Transfusion Reactions: No Reported Reaction Additional Past Anesthesia/Blood Transfusion Reaction / Comment(s): pt never received blood transfusion Date of Last Stent Placement:: 2006 Smoking Status: Current every day smoker - Past Family History Mother Family Medical History: No Reported History Medications and Allergies Home Medications Medication Instructions Recorded Confirmed Type Aspirin EC [Ecotrin Low Dose] 81 mg PO DAILY 04/01/20 05/30/21 History Tamsulosin [Flomax] 0.4 mg PO DAILY #7 cap 03/20/21 05/24/21 Rx Lisinopril-Hctz 20-25 mg 1 tab PO DAILY 05/24/21 05/24/21 History [Zestoretic 20-25] Allergies Allergy/AdvReac Type Severity Reaction Status Date / Time No Known Allergies Allergy Verified 05/24/21 11:46 Surgical - Exam - General well developed, well nourished, no distress - Eyes normal ocular movement, no icteric - ENT no hearing loss, no congestion - Neck no masses, trachea midline - Respiratory normal respiratory effort, clear to auscultation - Cardiovascular Rhythm: regular - Abdomen Abdomen: soft, non tender - Genitourinary indwelling catheter with an enlarged benign prostate. - Integumentary no rash, no growths - Neurologic normal coordination, normal sensation - Musculoskeletal normal posture - Psychiatric oriented to time, oriented to person, oriented to place, speech is normal, memory intact Assessment and Plan Assessment: Impression: bph with urinary retention. Plan: Bipolar turp
[~2021-06-01 06:48] MED LIST: AMPICILLIN 1,000 MG in SODIUM CHLORIDE 0.9% 50 ML IVPB PRN; DEXAMETHASONE SOD PHOSPHATE 4 MG/ML 1 ML VIAL IV ONE; GENTAMICIN 80 MG in SODIUM CHLORIDE 0.9% 100 ML IVPB PRN; LACTATED RINGERS 1,000 ML IV SCH; LIDOCAINE 1% (10MG/ML) FOR IV START INTRADERMA PRN; ONDANSETRON 4 MG/2 ML VIAL IVP ONE
[2021-06-01] MEDS ORDERED: HYDROmorphone 0.5 MG/0.5 ML SYRINGE IVP PRN (07:00)
[2021-06-01 07:50] VITALS: TEMP 98.1
[2021-06-01] MEDS ORDERED: SUCCINYLCHOLINE CHLORIDE 100 MG/5 ML SYR IV ONE (08:22)
[2021-06-01] MEDS ORDERED: PROPOFOL 10 MG/ML 20 ML VIAL IV ONE (08:22)
[2021-06-01] MEDS ORDERED: fentaNYL (PF) 50 MCG/ML 2 ML AMP ONE (08:22)
[2021-06-01] MEDS ORDERED: ePHEDrine 50 MG/ML 1 ML AMP ONE (08:22)
[2021-06-01] MEDS ORDERED: MIDAZOLAM 2 MG/2 ML VIAL ONE (08:22)
[2021-06-01] MEDS ORDERED: ROCURONIUM 10 MG/ML (5 ML VIAL) IV ONE (08:22)
[2021-06-01] MEDS ORDERED: PHENYLEPHRINE-0.9% NACL SYG 1,000 MCG/10 ML SYRINGE ONE (08:22)
[2021-06-01 08:35] LABS: African American GFR (CKD) >90 (>60 ml/min/1.73 sqM); Anion Gap 5 mmol/L; Blood Urea Nitrogen 18 mg/dL (9-20); Calcium 8.6 mg/dL (8.4-10.2); Carbon Dioxide 25 mmol/L (22-30); Chloride 90 mmol/L (98-107); Glucose 86 mg/dL (74-99); Non-African American GFR(CKD) 79 (>60 ml/min/1.73 sqM); Potassium 4.5 mmol/L (3.5-5.1); Sodium 120 mmol/L (137-145)
[2021-06-01] MEDS ORDERED: IV FLUID CONTINUATION 300 ML IV ONE (10:54)
[2021-06-01 10:57] VITALS: RESP 18
--- NOTE | 2021-06-01 11:07 | P.OP ---
Date of Procedure: 06/01/21 Preoperative Diagnosis: bph with urine retention Postoperative Diagnosis: same, plus low grade bladder ca, small Procedure(s) Performed: turbt , turp Surgeon: Sid Abreu Estimated Blood Loss (ml): 25 Pathology: other (bladder tumor, prostate chips) Condition: stable Disposition: PACU Indications for Procedure: the patient is 80 with persistent urine retention despite alpha blockers. He comes for a bipolar turp Description of Procedure: placed in lithotomy position with a sterile prep and drap. I introduce the 25 fr sheath with direct vision obturator and scope. THe bladder is inspected and there is a small papillary tumor on the left lat wall[ <2 cm]. It is resected and base is cauterized. I remove the tumor.and there is no bleeding I then appraoch the prostate. I first resect the the left lateral prostate from blader neck to veromontanum, 12 oclock to 6 oclock. I then resect the right lateral lobe in the same fashion. I fianlly resect the redundant floor tissue. The bladder is freed of prostate chips with the ellik evacuator. Bleeding is controlled with electrocautery. I reinspect the bladder tumor site and there is no bleeding or perforation. The resectosope is removed. An 18 fr , 5ml balloon coude tip cath is placed The patient is awaked and returned to recovery in good condition with clear urine The specimens are sent to pathology. His condition is good.
[2021-06-01 11:23] VITALS: BP 131/75; PULSE 69
== END 2021-06-01 11:56 | disposition home or self-care (01) ==
LOC: OR 06:48
PROVIDERS: ATTEND Urology
DX: N40.1 Benign prostatic hyperplasia with lower urinary tract symptoms (principal); C67.9 Malignant neoplasm of bladder, unspecified; Z20.822 Contact with and (suspected) exposure to COVID-19
CPT/HCPCS: 52601; 80048; 87635; J2250; J1100; J2405; J3010; J2370; J0330; J2704; 88305; 88307; 88344

== ENCOUNTER 2021-07-15 13:06 | Emergency (ER) | payer OTHER ==
[2021-07-15 13:26] VITALS: RESP 18; TEMP 98.7
[2021-07-15] MEDS ORDERED: SODIUM CHLORIDE 0.9% 500 ML 500 ML IV STA (13:40)
--- NOTE | 2021-07-15 13:44 | ED ---
General Adult HPI - General Chief complaint: Recheck/Abnormal Lab/Rx Stated complaint: Abnormal Labs,PCP sent pt in Time Seen by Provider: 07/15/21 13:30 Source: patient, family, RN notes reviewed, old records reviewed Mode of arrival: wheelchair Limitations: no limitations - History of Present Illness Initial comments: This is a pleasant hard of hearing 81-year-old male that presents to the emergency room with a family member with complaints of being sent by primary care doctor for a low sodium level and increasing weakness. Family states that he was hospitalized for urosepsis in March he also had prostate surgery. She states that he has been incontinent of his urine since the surgery and wears a diaper. He's had a decreased appetite. He continues to smoke at least a cigarette an hour he states. states approximately 2 packs a day. He does have a history of COPD, hypertension, OR, coronary artery disease. He denies any chest pain or difficulty breathing. -: month(s) (4) Severity scale (1-10): 0 Associated Symptoms: loss of appetite, malaise, weakness Treatments Prior to Arrival: none - Related Data Home Medications Medication Instructions Recorded Confirmed Aspirin EC [Ecotrin Low Dose] 81 mg PO DAILY 04/01/20 05/30/21 Lisinopril-Hctz 20-25 mg 1 tab PO DAILY 05/24/21 05/24/21 [Zestoretic 20-25] Previous Rx's Medication Instructions Recorded Tamsulosin [Flomax] 0.4 mg PO DAILY #7 cap 03/20/21 Cephalexin [Keflex] 500 mg PO Q6HR 7 Days #28 cap 07/15/21 Allergies Allergy/AdvReac Type Severity Reaction Status Date / Time No Known Allergies Allergy Verified 07/15/21 13:26 Review of Systems ROS Statement: Those systems with pertinent positive or pertinent negative responses have been documented in the HPI. ROS Other: All systems not noted in ROS Statement are negative. Past Medical History Past Medical History: Coronary Artery Disease (CAD), COPD, CVA/TIA, Hearing Disorder / Deafness, Hypertension, Myocardial Infarction (OR), Osteoarthritis (OA), Prostate Disorder Last Myocardial Infarction Date:: 2006 History of Any Multi-Drug Resistant Organisms: None Reported Past Surgical History: Appendectomy, Heart Catheterization With Stent, Tonsillectomy Additional Past Surgical History / Comment(s): BILROTH 2 Past Anesthesia/Blood Transfusion Reactions: No Reported Reaction Additional Past Anesthesia/Blood Transfusion Reaction / Comment(s): pt never received blood transfusion Date of Last Stent Placement:: 2006 Past Psychological History: No Psychological Hx Reported Smoking Status: Current every day smoker Past Alcohol Use History: None Reported Past Drug Use History: None Reported - Past Family History Mother Family Medical History: No Reported History General Exam Limitations: no limitations General appearance: alert, in no apparent distress Head exam: Present: atraumatic Neck exam: Absent: tenderness, meningismus Respiratory exam: Present: decreased breath sounds. Absent: respiratory distress, wheezes, rales, rhonchi, stridor, chest wall tenderness, accessory muscle use Cardiovascular Exam: Present: regular rate GI/Abdominal exam: Present: soft. Absent: distended, tenderness, guarding, rebound, rigid Extremities exam: Absent: tenderness, pedal edema Back exam: Present: normal inspection. Absent: tenderness, CVA tenderness (R), CVA tenderness (L), rash noted Neurological exam: Present: alert ([place]), oriented X3 Psychiatric exam: Present: normal affect, normal mood Skin exam: Present: warm, dry, normal color. Absent: cyanosis, diaphoretic, petechiae, pallor Course Vital Signs 07/15/21 07/15/21 13:24 16:42 Temperature 98.7 F Pulse Rate 79 57 L Respiratory 18 18 Rate Blood Pressure 130/80 181/90 O2 Sat by Pulse 99 100 Oximetry Medical Decision Making - Medical Decision Making Pleasant hard of hearing 81-year-old male sent by primary care doctor for a low sodium level and increasing weakness. He was hospitalized for urosepsis in March and has some incontinence of his urine since the surgery and wears a diaper. He's also had a decreased appetite but continues to smoke 2 packs a day. He denies any chest pain or difficulty breathing. He is ambulatory with a steady gait. There is no evidence of leukocytosis. His sodium was 124. Blood glucose is 69 and patient is eating chips in the room. Urinalysis shows 25 wbc, no evidence of bacteria, large leukocyte esterase, no ketones. He'll be treated for urinary tract infection. Patient was encouraged to increase his intake of fluids and eat small meals throughout the day. Follow-up with his primary care doctor on Sunday and return to the emergency room with any new or concerning symptoms. Case discussed with Dr. Pettit - Lab Data Result diagrams: 07/15/21 14:12 07/15/21 14:12 Lab Results 07/15/21 07/15/21 07/15/21 Range/Units 14:12 14:12 14:12 WBC 4.3 (3.8-10.6) k/uL RBC 4.06 L (4.30-5.90) m/uL Hgb 12.5 L (13.0-17.5) gm/dL Hct 37.0 L (39.0-53.0) % MCV 91.0 (80.0-100.0) fL MCH 30.8 (25.0-35.0) pg MCHC 33.8 (31.0-37.0) g/dL RDW 13.8 (11.5-15.5) % Plt Count 256 (150-450) k/uL MPV 7.6 Neutrophils % 61 % Lymphocytes % 24 % Monocytes % 8 % Eosinophils % 3 % Basophils % 1 % Neutrophils # 2.6 (1.3-7.7) k/uL Lymphocytes # 1.0 (1.0-4.8) k/uL Monocytes # 0.3 (0-1.0) k/uL Eosinophils # 0.1 (0-0.7) k/uL Basophils # 0.1 (0-0.2) k/uL PT 9.9 (9.0-12.0) sec INR 0.9 (<1.2) APTT 26.6 (22.0-30.0) sec Sodium 124 L (137-145) mmol/L Potassium 5.7 H (3.5-5.1) mmol/L Chloride 90 L (98-107) mmol/L Carbon Dioxide 29 (22-30) mmol/L Anion Gap 5 mmol/L BUN 21 H (9-20) mg/dL Creatinine 0.99 (0.66-1.25) mg/dL Est GFR (CKD-EPI)AfAm 83 (>60 ml/min/1.73 sqM) Est GFR (CKD-EPI)NonAf 72 (>60 ml/min/1.73 sqM) Glucose 69 L (74-99) mg/dL Plasma Lactic Acid Paco (0.7-2.0) mmol/L Calcium 8.3 L (8.4-10.2) mg/dL Phosphorus 4.7 H (2.5-4.5) mg/dL Magnesium 1.9 (1.6-2.3) mg/dL Total Bilirubin 0.7 (0.2-1.3) mg/dL AST 30 (17-59) U/L ALT 13 (4-49) U/L Alkaline Phosphatase 88 (38-126) U/L Troponin I (0.000-0.034) ng/mL Total Protein 6.4 (6.3-8.2) g/dL Albumin 3.6 (3.5-5.0) g/dL Urine Color Urine Appearance (Clear) Urine pH (5.0-8.0) Ur Specific [place] (1.001-1.035) Urine Protein (Negative) Urine Glucose (UA) (Negative) Urine Ketones (Negative) Urine Blood (Negative) Urine Nitrite (Negative) Urine Bilirubin (Negative) Urine Urobilinogen (<2.0) mg/dL Ur Leukocyte Esterase (Negative) Urine RBC (0-5) /hpf Urine WBC (0-5) /hpf Ur Squamous Epith Cells (0-4) /hpf Urine Mucus (None) /hpf 07/15/21 07/15/21 07/15/21 Range/Units 14:12 14:12 15:29 WBC (3.8-10.6) k/uL RBC (4.30-5.90) m/uL Hgb (13.0-17.5) gm/dL Hct (39.0-53.0) % MCV (80.0-100.0) fL MCH (25.0-35.0) pg MCHC (31.0-37.0) g/dL RDW (11.5-15.5) % Plt Count (150-450) k/uL MPV Neutrophils % % Lymphocytes % % Monocytes % % Eosinophils % % Basophils % % Neutrophils # (1.3-7.7) k/uL Lymphocytes # (1.0-4.8) k/uL Monocytes # (0-1.0) k/uL Eosinophils # (0-0.7) k/uL Basophils # (0-0.2) k/uL PT (9.0-12.0) sec INR (<1.2) APTT (22.0-30.0) sec Sodium (137-145) mmol/L Potassium (3.5-5.1) mmol/L Chloride (98-107) mmol/L Carbon Dioxide (22-30) mmol/L Anion Gap mmol/L BUN (9-20) mg/dL Creatinine (0.66-1.25) mg/dL Est GFR (CKD-EPI)AfAm (>60 ml/min/1.73 sqM) Est GFR (CKD-EPI)NonAf (>60 ml/min/1.73 sqM) Glucose (74-99) mg/dL Plasma Lactic Acid Paco 1.3 (0.7-2.0) mmol/L Calcium (8.4-10.2) mg/dL Phosphorus (2.5-4.5) mg/dL Magnesium (1.6-2.3) mg/dL Total Bilirubin (0.2-1.3) mg/dL AST (17-59) U/L ALT (4-49) U/L Alkaline Phosphatase (38-126) U/L Troponin I <0.012 (0.000-0.034) ng/mL Total Protein (6.3-8.2) g/dL Albumin (3.5-5.0) g/dL Urine Color Colorless Urine Appearance Clear (Clear) Urine pH 7.5 (5.0-8.0) Ur Specific [place] 1.006 (1.001-1.035) Urine Protein Negative (Negative) Urine Glucose (UA) Negative (Negative) Urine Ketones Negative (Negative) Urine Blood Negative (Negative) Urine Nitrite Negative (Negative) Urine Bilirubin Negative (Negative) Urine Urobilinogen <2.0 (<2.0) mg/dL Ur Leukocyte Esterase Large H (Negative) Urine RBC 1 (0-5) /hpf Urine WBC 25 H (0-5) /hpf Ur Squamous Epith Cells <1 (0-4) /hpf Urine Mucus Rare H (None) /hpf Disposition Clinical Impression: Hyponatremia, UTI (urinary tract infection), Weakness Disposition: HOME SELF-CARE Condition: Good Instructions (If sedation given, give patient instructions): Urinary Tract Infection in Men (ED), Hyponatremia (ED) Additional Instructions: Increase your fluid intake. Take the antibiotics as prescribed for the urinary tract infection. Eat small frequent meals throughout the day. Follow-up with your primary care doctor on Sunday for reevaluation of your urine and your blood work. Return to the emergency room with any new or concerning symptoms. Prescriptions: Cephalexin [Keflex] 500 mg PO Q6HR 7 Days #28 cap Is patient prescribed a controlled substance at d/c from ED?: No Referrals: [facility],Clinic [Primary Care Provider] - 1-2 days Time of Disposition: 16:41
[2021-07-15 14:26] LABS: Basophils # (A) 0.1 k/uL (0-0.2); Basophils % (A) 1 %; Eosinophils # (A) 0.1 k/uL (0-0.7); Eosinophils % (A) 3 %; HGB 12.5 gm/dL (13.0-17.5); Lymphocytes % (A) 24 %; MCH 30.8 pg (25.0-35.0); MCHC 33.8 g/dL (31.0-37.0); Mean Platelet Volume 7.6; Monocytes # (A) 0.3 k/uL (0-1.0); Monocytes % (A) 8 %; Neutrophils # (A) 2.6 k/uL (1.3-7.7); Neutrophils % (A) 61 %; Platelet Count 256 k/uL (150-450); RBC 4.06 m/uL (4.30-5.90); RDW 13.8 % (11.5-15.5); WBC 4.3 k/uL (3.8-10.6)
--- NOTE | 2021-07-15 14:39 | XR ---
EXAMINATION TYPE: XR chest 2V DATE OF EXAM: 07/15/2021 COMPARISON: 04/01/2020 HISTORY: Shortness of breath TECHNIQUE: Frontal and lateral views of the chest are obtained. FINDINGS: Scattered senescent parenchymal changes noted. Hyperinflation compatible with COPD. No evidence for infiltrate. No evidence for atelectasis. Heart size is stable. Mediastinal structures are stable and grossly unremarkable. No evidence for hilar prominence. Degenerative changes dorsal spine. IMPRESSION: 1. No evidence for acute pulmonary disease.
[2021-07-15 14:42] LABS: Albumin 3.6 g/dL (3.5-5.0); Calcium 8.3 mg/dL (8.4-10.2); INR 0.9 (<1.2); Magnesium 1.9 mg/dL (1.6-2.3); Partial Thromboplastin Time 26.6 sec (22.0-30.0); Phosphorus 4.7 mg/dL (2.5-4.5); Potassium 5.7 mmol/L (3.5-5.1); Prothrombin Time 9.9 sec (9.0-12.0); Total Bilirubin 0.7 mg/dL (0.2-1.3); Total Protein 6.4 g/dL (6.3-8.2)
[2021-07-15 16:26] LABS: Appearance,Urine Clear (Clear); Bilirubin,Urine Negative (Negative); Blood,Urine Negative (Negative); Color,Urine Colorless; Glucose,Urine (UA) Negative (Negative); Ketones,Urine Negative (Negative); Leukocyte Esterase,Urine Large (Negative); Mucus,Urine Rare /hpf; Nitrite,Urine Negative (Negative); PH, Urine 7.5 (5.0-8.0); Protein,Urine Negative (Negative); RBC,Urine 1 /hpf (0-5); Specific Gravity,Urine 1.006 (1.001-1.035); Squamous Epithelial Cell,Urine <1 /hpf (0-4); Urobilinogen,Urine <2.0 mg/dL (<2.0); WBC,Urine 25 /hpf (0-5)
[2021-07-15 16:42] VITALS: BP 181/90; PULSE 57
[2021-07-15] MEDS ORDERED: CEPHALEXIN 500MG STARTER PACK 4 CAP BTL PO STA (16:43)
[2021-07-15] MEDS ORDERED: CEPHALEXIN 500 MG CAP PO STA (16:43)
== END 2021-07-15 17:11 | disposition home or self-care (01) ==
LOC: EC 13:06
DX: R53.1 Weakness (principal); E87.1 Hypo-osmolality and hyponatremia; N39.0 Urinary tract infection, site not specified; I10 Essential (primary) hypertension; I25.2 Old myocardial infarction; M19.90 Unspecified osteoarthritis, unspecified site; I25.10 Atherosclerotic heart disease of native coronary artery without angina pectoris; J44.9 Chronic obstructive pulmonary disease, unspecified; F17.210 Nicotine dependence, cigarettes, uncomplicated; Z79.82 Long term (current) use of aspirin; Z86.73 Personal history of transient ischemic attack (TIA), and cerebral infarction without residual deficits; Z90.49 Acquired absence of other specified parts of digestive tract
CPT/HCPCS: 36415; 71046; 80053; 81001; 83605; 83735; 84100; 84484; 85025; 85610; 85730; 87086; 93005; 96360; 99285

== ENCOUNTER → 2021-10-07 | Outpatient (CLI) | payer OTHER ==
--- NOTE | 2021-10-08 11:44 | CT ---
EXAMINATION TYPE: CT brain wo con DATE OF EXAM: 10/07/2021 COMPARISON: INDICATION: COGNITIVE COMMUNICATION DEFICIT DLP: 1165 mGycm, Automated exposure control for dose reduction was used. CONTRAST: None CT of the brain is performed utilizing 3 mm thick sections through the posterior fossa and 3 mm thick sections through the remaining calvarium. Study is performed within 24 hours of arrival to the hosp ital. No abnormal hyperdensity is present to suggest an acute intracranial hemorrhage. No mass lesion is evident. No acute infarcts are evident. Chronic appearing confluent periventricular white matter ischemic type changes are present. Findings appear similar to 2019. Small old lacunar infarcts within the bilatera l thalami are present. Ventricles and sulci are prominent for the patient age. Paranasal sinuses appear clear. There is fluid within the right mastoid air cells. Correlate for righ t acute mastoiditis. IMPRESSIONS: 1. Stable chronic appearing white matter hypodensity likely on the basis of chronic white matter is chemic changes with age related atrophy. MRI is available if additional evaluation would be of benefi t.
== END | disposition home or self-care (01) ==
LOC: RADCTMAIN 17:28
DX: I67.82 Cerebral ischemia (principal)
CPT/HCPCS: 70450

== ENCOUNTER 2021-10-27 10:43 | Inpatient (IN) | payer OTHER, MEDICARE ==
[2021-10-27] MEDS ORDERED: MIDAZOLAM 1 MG/ML 5 ML VIAL IV STA (10:48)
[2021-10-27] MEDS: NALOXONE 0.4 MG/ML 1 ML VIAL IV PRN ×2 (10:49→10:50)
[2021-10-27] MEDS ORDERED: SUCCINYLCHOLINE CHLORIDE VIAL 200 MG/10 ML VIAL IV ONE ×2 (10:49→15:08)
--- NOTE | 2021-10-27 11:13 | CT ---
EXAMINATION TYPE: CT brain wo con for TPA DATE OF EXAM: 10/27/2021 HISTORY: Seizures, neuro deficits, stroke suspected. Found unresponsive. CT DLP: 1058 mGycm. Automated Exposure Control for Dose Reduction was Utilized. TECHNIQUE: CT scan of the head is performed without contrast. COMPARISON: CT brain October 07, 2021. FINDINGS: There is no acute intracranial hemorrhage or midline shift identified. There is mild to m oderate diffuse ventricular and sulcal prominence consistent with diffuse age-related cerebral atroph y. Asymmetry to the frontal horns redemonstrated. There is moderate to advanced low-attenuation in t he periventricular white matter consistent with chronic small vessel ischemic change. Heterogeneous o pacification completely filling left frontal sinus redemonstrated extending into the anterior left et hmoid sinus. Patchy opacification of right mastoid air cells redemonstrated. Abnormal soft tissue d ensity in the right external auditory canal again seen. Correlate clinically. Globes are intact bilat erally. Endotracheal tube on localizer in satisfactory position. IMPRESSION: No acute intracranial hemorrhage or midline shift. There is mild to moderate diffuse ce rebral atrophy and moderate to advanced chronic small vessel ischemic change redemonstrated. No sign ificant change from most recent CT.
[2021-10-27 11:24] LABS: Basophils # (A) 0.1 k/uL (0-0.2); Basophils % (A) 1 %; Eosinophils # (A) 0.1 k/uL (0-0.7); Eosinophils % (A) 1 %; HCT 45.1 % (39.0-53.0); HGB 13.6 gm/dL (13.0-17.5); Hypochromasia Moderate; Lymphocytes # (A) 2.1 k/uL (1.0-4.8); Lymphocytes % (A) 26 %; MCH 29.5 pg (25.0-35.0); MCHC 30.3 g/dL (31.0-37.0); MCV 97.4 fL (80.0-100.0); Mean Platelet Volume 8.6; Monocytes # (A) 0.3 k/uL (0-1.0); Monocytes % (A) 4 %; Neutrophils % (A) 64 %; Platelet Count 328 k/uL (150-450); RBC 4.63 m/uL (4.30-5.90); RDW 13.2 % (11.5-15.5); WBC 7.9 k/uL (3.8-10.6)
[2021-10-27] MEDS ORDERED: SODIUM CHLORIDE 0.9% 1,000 ML IV ONE ×2 (11:24→12:15)
[2021-10-27 11:25] LABS: Albumin 3.5 g/dL (3.5-5.0); Calcium 8.5 mg/dL (8.4-10.2); Magnesium 2.3 mg/dL (1.6-2.3); Potassium 4.2 mmol/L (3.5-5.1); Total Bilirubin 0.4 mg/dL (0.2-1.3); Total Protein 5.6 g/dL (6.3-8.2)
[2021-10-27] MEDS ORDERED: levETIRAcetam IV 1,500 MG in SALINE 1 100ML.BAG IVPB STA (11:25)
[2021-10-27 11:27] LABS: Partial Thromboplastin Time 32.3 sec (22.0-30.0); Prothrombin Time 11.2 sec (9.0-12.0)
[2021-10-27] MEDS ORDERED: DILTIAZEM DRIP BOLUS FROM BAG 1 MG SOLN IV ONE (11:50)
--- NOTE | 2021-10-27 11:52 | CT ---
EXAMINATION TYPE: CT angio head neck DATE OF EXAM: 10/27/2021 HISTORY: Seizures, neuro deficits, stroke suspected COMPARISON: CT dated 04/01/2020 CT DLP: 326.7 mGycm. Automated Exposure Control for Dose Reduction was Utilized. TECHNIQUE: CTA scan of the head and neck is performed with IV Contrast, patient injected with 65 mL of Isovue 370, axial images are obtained, coronal and sagittal reformatted images are reviewed. 3D re constructed images are created on an independent workstation and reviewed. FINDINGS: Carotid/Vascular Structures: Suspected chronic occlusion of the right vertebral artery. Scattered art erial atherosclerotic calcification and tortuosity. Mild stenosis of the proximal portion of the left internal carotid artery. Otherwise normal caliber and enhancement of the neck arteries and intracran ial arteries without significant stenosis, other occlusion, dissection or aneurysm. Patent major intr acranial venous sinuses. Other: No intracranial abnormal enhancement. Endotracheal tube is seen in place with the laryngeal se cretions. Edema of the neck soft tissue. COPD changes. Degenerative change of the cervical spine. IMPRESSION: Chronic occlusion of the right vertebral artery. Otherwise no significant arterial stenosis, occlusio n, dissection or aneurysm seen in the neck or the intracranial arteries. Other findings as described above.
[2021-10-27 12:05] LABS: ABG Base Excess -11.7 mmol/L; ABG HCO3 18 mmol/L (21-25); ABG Oxygen Saturation 98.2 % (94-97); ABG PCO2 53 mmHg (35-45); ABG PO2 139 mmHg (83-108); ABG TCO2 19 mmol/L (19-24); Allen Test Performed? Yes
--- NOTE | 2021-10-27 12:09 | XR ---
EXAMINATION TYPE: XR chest 1V portable DATE OF EXAM: 10/27/2021 COMPARISON: X-ray dated 07/15/2021 HISTORY: Altered mental status TECHNIQUE: Single frontal view of the chest is obtained. FINDINGS: COPD changes. No [place] area of pulmonary consolidation. No sizable pleural effusion or definite pneum othorax. No gross cardiomegaly. NG tube with the tip is seen within the gastric fundus. Endotracheal tube with the tip is about 7.3 c m proximal to the john. Gaseous distention of the bowel in the upper abdomen. IMPRESSION: As above.
[2021-10-27 12:11] LABS: ABG PH 7.13 (7.35-7.45)
[2021-10-27] MEDS ORDERED: LORazepam 2 MG/ML INJ IV STA (12:19)
[2021-10-27] MEDS: DILTIAZEM 125 MG in SODIUM CHLORIDE 0.9% 100 ML IV SCH (12:28)
[2021-10-27 12:47] LABS: Appearance,Urine Clear (Clear); Bilirubin,Urine Negative (Negative); Blood,Urine Small (Negative); Color,Urine Light Yellow; Glucose,Urine (UA) Negative (Negative); Hyaline Casts,Urine 1 /lpf (0-2); Ketones,Urine Negative (Negative); Leukocyte Esterase,Urine Trace (Negative); Nitrite,Urine Negative (Negative); PH, Urine 6.5 (5.0-8.0); Protein,Urine 2+ (Negative); RBC,Urine 3 /hpf (0-5); Specific Gravity,Urine 1.019 (1.001-1.035); Urobilinogen,Urine <2.0 mg/dL (<2.0); WBC,Urine 5 /hpf (0-5)
[2021-10-27] MEDS ORDERED: MORPHINE SULFATE 4 MG/ML SYRINGE IVP STA (12:48)
--- NOTE | 2021-10-27 12:51 | ED ---
General Adult HPI - General Chief complaint: Seizure Stated complaint: Seizures Time Seen by Provider: 10/27/21 10:52 Source: EMS, RN notes reviewed, old records reviewed Mode of arrival: EMS Limitations: altered mental status - History of Present Illness Initial comments: 81-year-old male presents from home with acute onset altered mental status and seizure. Patient was found by his , with tonic-clonic seizure activity, with right gaze deviation, nonresponsive. Medics arrived and the patient was transported to the hospital with concern for acute CVA and new onset seizure. Apparently the patient has history of hypertension. - Related Data Home Medications Medication Instructions Recorded Confirmed Aspirin EC [Ecotrin Low Dose] 81 mg PO DAILY 04/01/20 05/30/21 Lisinopril-Hctz 20-25 mg 1 tab PO DAILY 05/24/21 05/24/21 [Zestoretic 20-25] Previous Rx's Medication Instructions Recorded Tamsulosin [Flomax] 0.4 mg PO DAILY #7 cap 03/20/21 Cephalexin [Keflex] 500 mg PO Q6HR 7 Days #28 cap 07/15/21 Allergies Allergy/AdvReac Type Severity Reaction Status Date / Time No Known Allergies Allergy Verified 07/15/21 13:26 Review of Systems ROS Statement: Those systems with pertinent positive or pertinent negative responses have been documented in the HPI. ROS Other: All systems not noted in ROS Statement are negative. Past Medical History Past Medical History: Coronary Artery Disease (CAD), COPD, CVA/TIA, Hearing D isorder / Deafness, Hypertension, Myocardial Infarction (PR), Osteoarthritis (OA), Prostate Disorder Last Myocardial Infarction Date:: 2006 History of Any Multi-Drug Resistant Organisms: None Reported Past Surgical History: Appendectomy, Heart Catheterization With Stent, Tonsillectomy Additional Past Surgical History / Comment(s): BILROTH 2 Past Anesthesia/Blood Transfusion Reactions: No Reported Reaction Additional Past Anesthesia/Blood Transfusion Reaction / Comment(s): pt never received blood transfusion Date of Last Stent Placement:: 2006 Past Psychological History: No Psychological Hx Reported Smoking Status: Current every day smoker Past Alcohol Use History: None Reported Past Drug Use History: None Reported - Past Family History Mother Family Medical History: No Reported History General Exam General appearance: obtunded, other (Agonal respirations) Head exam: Present: atraumatic, normocephalic Eye exam: Absent: PERRL (2 mm bilaterally nonreactive) Neck exam: Present: normal inspection. Absent: tenderness Respiratory exam: Present: other (Agonal respirations minimal gag) Cardiovascular Exam: Present: tachycardia, irregular rhythm GI/Abdominal exam: Present: soft. Absent: distended, tenderness, guarding Extremities exam: Present: normal inspection, normal capillary refill. Absent: pedal edema, calf tenderness Neurological exam: Present: other (No spontaneous movement, minimal gag reflex, does not withdraw to pain, no posturing, no definitive seizure activity.). Absent: alert Skin exam: Present: warm, dry, intact, pallor Course Vital Signs 10/27/21 10/27/21 10:45 11:17 Temperature 97.6 F Pulse Rate 160 H Respiratory 8 L Rate Blood Pressure 149/93 O2 Sat by Pulse 97 Oximetry Fraction of 50 Inspired Oxygen (FIO2) EKG Findings - EKG Comments: EKG Findings:: Neutrophils with rapid ventricular response rate of 151 there is precordial depression no ST segment elevation QRS duration 102, QTC 343 Procedures - Intubation Sedative: Versed Mg Given: 5 Paralytic: Succinylcholine Mg Given: 50 Laryngoscope: Daja Size: 3 ET Tube Size: 7.5 ET Tube Uncuffed: No Tube Secured Depth (cm): 25 Tube Secured Location: lips Tube Placement Confirmation: visualized tube passing through cords, equal breath sounds bilaterally, no breath sounds over epigastrium, confirmation by capnometry Patient Tolerated Procedure: well Intubation Complications: none Medical Decision Making - Medical Decision Making 81-year-old male presenting with new onset seizure. Patient is agonal with minimal gag reflex on arrival. He has no spontaneous movement, does not withdraw to pain. He has pinpoint pupils bilaterally with right gaze deviation. He is a full code according to paramedics. He is immediately intubated and taken to CT. CT without contrast negative for intracranial hemorrhage or mass effect, CT angiography negative for acute stenosis or occlusion, no dissection noted. Patient has laboratory testing significant for hyponatremia, and HIGH lactic acid of 18 which is likely secondary to prolonged seizure. I discussed case with the neuro interventionalist who does not recommend TPA. This is more consistent with a primary seizure disorder rather than acute CVA at this time. Patient is started on Keppra, propofol, and Ativan in the emergency department. I did discuss case with the diesel engine specialist Dr. Smith and the neurologist Dr. Reina as well as the admitting physician Dr. Ozuna. Patient's does give history which supports seizure activity without any preceding issues. She does indicate that the patient did not want to be resuscitated and was a DO NOT RESUSCITATE. Paramedics were apparently not aware of this and had informed the medical staff here that the patient was a full code. We did discuss possibility of withdrawing care in the emergency department to respect the patient's wishes. Ultimately after a prolonged discussion between myself and Dr. Ozuna and the patient's we agreed upon 24 hours of sedation and ventilator support. No aggressive actions. Patient will be a no code. - Lab Data Result diagrams: 10/27/21 10:58 10/27/21 10:58 Lab Results 10/27/21 10/27/21 10/27/21 Range/Units 10:58 10:58 10:58 WBC 7.9 (3.8-10.6) k/uL RBC 4.63 (4.30-5.90) m/uL Hgb 13.6 (13.0-17.5) gm/dL Hct 45.1 (39.0-53.0) % MCV 97.4 (80.0-100.0) fL MCH 29.5 (25.0-35.0) pg MCHC 30.3 L (31.0-37.0) g/dL RDW 13.2 (11.5-15.5) % Plt Count 328 (150-450) k/uL MPV 8.6 Neutrophils % 64 % Lymphocytes % 26 % Monocytes % 4 % Eosinophils % 1 % Basophils % 1 % Neutrophils # 5.0 (1.3-7.7) k/uL Lymphocytes # 2.1 (1.0-4.8) k/uL Monocytes # 0.3 (0-1.0) k/uL Eosinophils # 0.1 (0-0.7) k/uL Basophils # 0.1 (0-0.2) k/uL Hypochromasia Moderate PT 11.2 (9.0-12.0) sec INR 1.0 (<1.2) APTT 32.3 H (22.0-30.0) sec Sample Site ABG pH (7.35-7.45) ABG pCO2 (35-45) mmHg ABG pO2 (83-108) mmHg ABG HCO3 (21-25) mmol/L ABG Total CO2 (19-24) mmol/L ABG O2 Saturation (94-97) % ABG Base Excess mmol/L Pa Test FiO2 % Sodium 126 L (137-145) mmol/L Potassium 4.2 (3.5-5.1) mmol/L Chloride 92 L (98-107) mmol/L Carbon Dioxide 11 L (22-30) mmol/L Anion Gap 23 mmol/L BUN 15 (9-20) mg/dL Creatinine 1.09 (0.66-1.25) mg/dL Est GFR (CKD-EPI)AfAm 74 (>60 ml/min/1.73 sqM) Est GFR (CKD-EPI)NonAf 64 (>60 ml/min/1.73 sqM) Glucose 230 H (74-99) mg/dL Plasma Lactic Acid Paco (0.7-2.0) mmol/L Calcium 8.5 (8.4-10.2) mg/dL Magnesium 2.3 (1.6-2.3) mg/dL Total Bilirubin 0.4 (0.2-1.3) mg/dL AST 29 (17-59) U/L ALT 25 (4-49) U/L Alkaline Phosphatase 90 (38-126) U/L Troponin I (0.000-0.034) ng/mL Total Protein 5.6 L (6.3-8.2) g/dL Albumin 3.5 (3.5-5.0) g/dL 10/27/21 10/27/21 10/27/21 Range/Units 10:58 10:58 12:02 WBC (3.8-10.6) k/uL RBC (4.30-5.90) m/uL Hgb (13.0-17.5) gm/dL Hct (39.0-53.0) % MCV (80.0-100.0) fL MCH (25.0-35.0) pg MCHC (31.0-37.0) g/dL RDW (11.5-15.5) % Plt Count (150-450) k/uL MPV Neutrophils % % Lymphocytes % % Monocytes % % Eosinophils % % Basophils % % Neutrophils # (1.3-7.7) k/uL Lymphocytes # (1.0-4.8) k/uL Monocytes # (0-1.0) k/uL Eosinophils # (0-0.7) k/uL Basophils # (0-0.2) k/uL Hypochromasia PT (9.0-12.0) sec INR (<1.2) APTT (22.0-30.0) sec Sample Site rbrach ABG pH 7.13 L* (7.35-7.45) ABG pCO2 53 H (35-45) mmHg ABG pO2 139 H (83-108) mmHg ABG HCO3 18 L (21-25) mmol/L ABG Total CO2 19 (19-24) mmol/L ABG O2 Saturation 98.2 H (94-97) % ABG Base Excess -11.7 mmol/L Pa Test Yes FiO2 50 % Sodium (137-145) mmol/L Potassium (3.5-5.1) mmol/L Chloride (98-107) mmol/L Carbon Dioxide (22-30) mmol/L Anion Gap mmol/L BUN (9-20) mg/dL Creatinine (0.66-1.25) mg/dL Est GFR (CKD-EPI)AfAm (>60 ml/min/1.73 sqM) Est GFR (CKD-EPI)NonAf (>60 ml/min/1.73 sqM) Glucose (74-99) mg/dL Plasma Lactic Acid Paco 18.8 H* (0.7-2.0) mmol/L Calcium (8.4-10.2) mg/dL Magnesium (1.6-2.3) mg/dL Total Bilirubin (0.2-1.3) mg/dL AST (17-59) U/L ALT (4-49) U/L Alkaline Phosphatase (38-126) U/L Troponin I 0.019 (0.000-0.034) ng/mL Total Protein (6.3-8.2) g/dL Albumin (3.5-5.0) g/dL Critical Care Time Critical Care Time: Yes Total Critical Care Time: 35 Disposition Clinical Impression: New onset seizure, Status epilepticus, Respiratory failure Disposition: ADMITTED IP TO THIS [facility] Condition: Poor Instructions (If sedation given, give patient instructions): Seizure/Epilepsy Discharge Instructions & Follow-Up Is patient prescribed a controlled substance at d/c from ED?: No Referrals: [facility],Clinic [Primary Care Provider] - 1-2 days Time of Disposition: 12:58
[2021-10-27] MEDS ORDERED: NALOXONE 0.4 MG/ML 1 ML VIAL IV PRN (12:59)
[2021-10-27] MEDS ORDERED: LORazepam Vial 25 MG in DEXTROSE 5% IN WATER 238 ML IV SCH ×2 (13:00)
[2021-10-27] MEDS ORDERED: fentaNYL (PF). 1,000 MCG in SODIUM CHLORIDE 0.9% 80 ML IV SCH (13:00)
[2021-10-27 13:16] LABS: Amphetamine Screen,Urine Not Detected (NotDetected); Barbiturate Screen,Urine Not Detected (NotDetected); Benzodiazepines Screen,Urine Not Detected (NotDetected); Cocaine Screen,Urine Not Detected (NotDetected); Methadone Screen, Urine Not Detected (NotDetected); Opiate Screen,Urine Not Detected (NotDetected); Oxycodone Screen, Urine Not Detected (NotDetected); Phencyclidine Screen,Urine Not Detected (NotDetected); Tricyclic Antidepressant,Urine Not Detected (NotDetected); Urn Cannabinoid Scrn Not Detected (NotDetected)
--- NOTE | 2021-10-27 16:23 | P.CNPUL ---
History of Present Illness Consult date: 10/27/21 Requesting physician: López Ozuna Reason for consult: other (Acute hypoxic failure secondary to status epilepticus) Chief complaint: Altered mental status and seizure. History of present illness: This is an 81-year-old white male with history of hypertension, patient was brought in by EMS this morning mostly with acute onset of altered mental status and seizure. According to the the patient had acute onset of tonic-clonic seizure activity with right days deviation and unresponsiveness. EMS arrived to the scene, patient was brought in and the impression was possible CVA and new onset seizure. Upon arrival to the ER, the patient was unresponsive, rigid, and he had immediate intubation and placed on mechanical ventilation. In the meantime the patient was placed on propofol and on Versed CT of the brain was basically nondiagnostic. And did not correlate with his presentation. Patient is now in the ER trauma 2, I saw him, reviewed his ventilator settings he is now on assist control rate of 18 tidal volume increased from 350-400, and he is on FiO2 of 50% and I cut it down to 45% is also on a PEEP of 5. ABG earlier showed a pO2 of 139 pCO2 53 pH of 7.13 and since those ABGs, his ventilator settings were changed. Patient had a relatively normal CBC. His sodium was noted to be low at 126 potassium 4.2. And his lactic acid was 18.8. Drug screen is negative. Urinalysis is basically unremarkable Review of Systems ROS unobtainable: due to endotracheal tube Past Medical History Past Medical History: Coronary Artery Disease (CAD), COPD, CVA/TIA, Hearing Disorder / Deafness, Hypertension, Myocardial Infarction ([place]), Osteoarthritis (OA), Prostate Disorder Last Myocardial Infarction Date:: 2006 History of Any Multi-Drug Resistant Organisms: None Reported Past Surgical History: Appendectomy, Heart Catheterization With Stent, Tonsillectomy Additional Past Surgical History / Comment(s): BILROTH 2 Past Anesthesia/Blood Transfusion Reactions: No Reported Reaction Additional Past Anesthesia/Blood Transfusion Reaction / Comment(s): pt never received blood transfusion Date of Last Stent Placement:: 2006 Past Psychological History: No Psychological Hx Reported Smoking Status: Current every day smoker Past Alcohol Use History: None Reported Past Drug Use History: None Reported - Past Family History Mother Family Medical History: No Reported History Medications and Allergies Home Medications Medication Instructions Recorded Confirmed Type Aspirin EC [Ecotrin Low Dose] 81 mg PO DAILY 04/01/20 10/27/21 History Albuterol Nebulized [Ventolin 2.5 mg INHALATION RT-Q4H 10/27/21 10/27/21 History Nebulized] Albuterol Sulfate [Albuterol 2 puff INHALATION RT-Q6H PRN 10/27/21 10/27/21 History Sulfate Hfa] Cholecalciferol [Vitamin D3 (25 25 mcg PO DAILY 10/27/21 10/27/21 History Mcg = 1000 Iu)] Lidocaine 5% Patch [Lidoderm] 1 patch TRANSDERM DAILY PRN 10/27/21 10/27/21 History Mometasone/Formoterol [Dulera 100 2 puff INHALATION RT-BID 10/27/21 10/27/21 History Mcg-5 Mcg Inhaler] Tiotropium 2.5 Mcg/Puff [Spiriva 2 puff INHALATION RT-DAILY 10/27/21 10/27/21 History Respimat 2.5 Mcg] lisinopriL [Prinivil] 10 mg PO DAILY 10/27/21 10/27/21 History Allergies Allergy/AdvReac Type Severity Reaction Status Date / Time No Known Allergies Allergy Verified 10/27/21 13:43 Physical Exam Vitals: Vital Signs Temp Pulse Resp BP Pulse Ox FiO2 10/27/21 16:03 45 10/27/21 15:20 91 18 99/79 100 50 10/27/21 15:10 87 18 113/81 100 50 10/27/21 15:00 90 18 130/93 100 50 10/27/21 14:30 115 H 18 127/94 100 50 10/27/21 14:26 122 H 18 127/94 100 50 10/27/21 14:00 108 H 18 138/97 100 10/27/21 13:59 50 10/27/21 13:00 129 H 18 138/100 99 10/27/21 12:40 122 H 18 140/87 99 10/27/21 12:30 144/93 10/27/21 11:50 131/94 10/27/21 11:40 149/106 10/27/21 11:30 131/78 10/27/21 11:17 50 10/27/21 10:50 10 L 10/27/21 10:49 10 L 10/27/21 10:45 97.6 F 160 H 8 L 149/93 97 Intake and Output 10/27/21 10/27/21 10/27/21 06:59 14:59 22:59 Intake Total 0.622 Output Total 675 Balance -674.378 Intake: Intake, IV Titration 0.622 Amount propofoL 1,000 mg In 0.622 Empty Bag 1 bag @ 5 MCG/ KG/MIN 1.383 mls/hr IV . Q24H [facility] Rx#:[id number] Output: Urine 675 Uretheral (Shirley) 375 Other: Weight 46.1 kg General appearance: Revealed an 81-year-old white male intubated, mechanically ventilated, unresponsive to any stimuli. Head exam: atraumatic, normocephalic Eye exam: Absent: PERRL (2 mm bilaterally nonreactive) Neck exam: normal inspection. No neck masses, no JVD, endotracheal tube is intact. Respiratory exam: Diminished breath sound bilaterally no crackles or rhonchi or wheezes Cardiovascular Exam: Irregular irregular rhythm, no S3 gallop, 2/6 systolic murmur thought the precordium. GI/Abdominal exam: Soft nontender no megaly no rebound no guarding. Extremities exam: No clubbing edema or cyanosis. Neurological exam: Unresponsive. (No spontaneous movement, no gag reflex, not withdrawing to pain., no posturing, no definitive seizure activity. Skin exam: No rashes, no cyanosis Results - Laboratory Findings CBC and BMP: 10/27/21 10:58 10/27/21 10:58 ABG ABG pH 7.13 (7.35-7.45) L* 10/27/21 12:02 ABG pCO2 53 mmHg (35-45) H 10/27/21 12:02 ABG pO2 139 mmHg (83-108) H 10/27/21 12:02 ABG O2 Saturation 98.2 % (94-97) H 10/27/21 12:02 PT/INR, D-dimer PT 11.2 sec (9.0-12.0) 10/27/21 10:58 INR 1.0 (<1.2) 10/27/21 10:58 Abnormal lab findings: Abnormal Labs 10/27/21 10/27/21 10/27/21 10:58 10:58 10:58 MCHC 30.3 L APTT 32.3 H ABG pH ABG pCO2 ABG pO2 ABG HCO3 ABG O2 Saturation Sodium 126 L Chloride 92 L Carbon Dioxide 11 L Glucose 230 H Plasma Lactic Acid Paco Total Protein 5.6 L Urine Protein Urine Blood Ur Leukocyte Esterase 10/27/21 10/27/21 10/27/21 10:58 12:02 12:15 MCHC APTT ABG pH 7.13 L* ABG pCO2 53 H ABG pO2 139 H ABG HCO3 18 L ABG O2 Saturation 98.2 H Sodium Chloride Carbon Dioxide Glucose Plasma Lactic Acid Paco 18.8 H* Total Protein Urine Protein 2+ H Urine Blood Small H Ur Leukocyte Esterase Trace H 10/27/21 14:46 MCHC APTT ABG pH ABG pCO2 ABG pO2 ABG HCO3 ABG O2 Saturation Sodium Chloride Carbon Dioxide Glucose Plasma Lactic Acid Paco 4.4 H* Total Protein Urine Protein Urine Blood Ur Leukocyte Esterase - Diagnostic Findings Chest x-ray: image reviewed (Chest x-ray is unremarkable, endotracheal tube was noted to be high above the john, and this has been adjusted by ER physician) Assessment and Plan Assessment: Impression: Acute hypoxic respiratory failure secondary to status epilepticus, new onset seizures chronic hyponatremia etiology is not clear, however patient was in the ER back on 08/02, and his sodium was 124 at the time. 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 History of underlying COPD Degenerative joint disease History of prostate cancer and, history of TURP History of CVA Ongoing nicotine addiction Recommendation: IV fluid in the form of 0.9 normal saline at 75 mL per hour Continue ventilatory support Continue propofol and Versed Neurology consultation is pending Continue seizure precautions GI and DVT prophylaxis Evaluate mental status in the next 24 hours Enteral feeding possibly in the next 24 hours We will continue to follow. Monitor electrolytes/monitor his hyponatremia. Resume home meds Time with Patient: Greater than 30
[2021-10-27] MEDS ORDERED: PHENYTOIN SODIUM INJ 1,000 MG in SODIUM CHLORIDE 0.9% 100 ML IVPB STA (16:37)
--- NOTE | 2021-10-27 16:53 | P.HPIM ---
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 Patient had a long seizure episode at home, was brought into the hospital by emergency medical services. He received Versed along the Route and initially responded, however, had 2 additional seizes on Route. Once he is in the hospital, he was transferred to hospital bed and intubated, started on a propofol drip. Patient could not provide any history due to being intubated and sedated. The was the DURABLE POWER OF M[employer]ESSER, patient's previous wishes were DO NOT RESUSCITATE/DO NOT INTUBATE and this was relayed to EMS, however, EMS subsequently related to her physician that the patient was full code which is why he got intubated. After goals of care conversation speaking about patient's clinical status including likely status epilepticus, patient's opted for a 24-hour trial of therapy prior to compassionate weaning. Upon my evaluation in the emergency room, patient was afebrile, 149/93, pulse rate was in the 150s to 160s in atrial fibrillation, respiratory rate was 8-10, saturating 97% on before meals 400, FiO2 45%, PEEP of 5, patient was not breathing over the vent rate which was set at 18. CBC is unremarkable. Chemistries show hyponatremia to 126, hypochloremia to 92, bicarb level of 11, anion gap of 23, BUN/creatinine 15/1.1. LFTs show mild low protein of 5.6, othe rwise unremarkable. Initial lactate was 18.8. Coags were remarkable for PTT of 32.3. ABG was significant for a pH of 7.13, pCO2 of 53, pO2 of 139. UA showed 2+ protein, small blood, trace leukocyte esterase. Urine tox screen was negative. Repeat lactic acid is 4.4. Brain CT is negative for acute intracranial hemorrhage or midline shift, shows mild to moderate diffuse cerebral atrophy and moderate to advanced chronic small vessel ischemic change. CT angiography of the head and neck show chronic occlusion of the right vertebral artery, otherwise no significant stenosis or occlusion, dissection or aneurysm. Chest x-ray shows COPD changes, but no acute cardiopulmonary changes. EKG shows atrial fibrillation with rapid ventricular response at a rate of 151, ST depressions in leads 1, V5, V6, V4, V3, V2. Review of systems could not be completed due to patient's clinical status Gen: Intubated, sedated Eyes: Pinpoint pupils without reaction to light, no scleral injection or icterus HENT: normocephalic, atraumatic, moist mucous membranes Neck: no tracheal deviation, full range of motion Resp: Impaired air exchange, no accessory muscle use, no tactile fremitus, clear to auscultation bilaterally CVS: good distal perfusion x 4, no pitting edema, tachycardic, irrregular rhythm GI: soft, tenderness to palpation in the epigastrium, periumbilical area, ND, no hepatosplenomegaly : no suprapubic tenderness, no CVAT, phillips catheter is present MSK: no clubbing, no cyanosis, no noted contractures of extremities Skin: no noted rashes, petechiae; temperature of skin is appropriate Neuro: 05 reflexes throughout, bilateral positive Babinski, more prominent on the left, hypertonic musculature in all rausch Labs and imaging as above Assessment/plan: Status epilepticus Metabolic encephalopathy -Admit to ICU, telemetry -Neurology, pulmonary consult -EEG -MRI -Echo -Keppra 1500 loaded in the ER, 1000 g every 12 hours -Neurology to add Dilantin -Ativan drip -Fentanyl drip -Propofol drip -Empiric acyclovir -Palliative care consult Paroxysmal atrial fibrillation with RVR -Cardiology consult -Heparin drip -Diltiazem drip COPD without exacerbation History of CVA Cerebrovascular disease Hypertension -Home medications reviewed and reconciled Patient is DO NOT RESUSCITATE/DO NOT INTUBATE DVT prophylaxis with heparin drip I spent 45 minutes of critical care time with this patient, does not include procedures Past Medical History Past Medical History: Coronary Artery Disease (CAD), COPD, CVA/TIA, Hearing Disorder / Deafness, Hypertension, Myocardial Infarction ([place]), Osteoarthritis (OA), Prostate Disorder Last Myocardial Infarction Date:: 2006 History of Any Multi-Drug Resistant Organisms: None Reported Past Surgical History: Appendectomy, Heart Catheterization With Stent, Tonsillectomy Additional Past Surgical History / Comment(s): BILROTH 2 Past Anesthesia/Blood Transfusion Reactions: No Reported Reaction Additional Past Anesthesia/Blood Transfusion Reaction / Comment(s): pt never received blood transfusion Date of Last Stent Placement:: 2006 Past Psychological History: No Psychological Hx Reported Smoking Status: Current every day smoker Past Alcohol Use History: None Reported Past Drug Use History: None Reported - Past Family History Mother Family Medical History: No Reported History Medications and Allergies Home Medications Medication Instructions Recorded Confirmed Type Aspirin EC [Ecotrin Low Dose] 81 mg PO DAILY 04/01/20 10/27/21 History Albuterol Nebulized [Ventolin 2.5 mg INHALATION RT-Q4H 10/27/21 10/27/21 History Nebulized] Albuterol Sulfate [Albuterol 2 puff INHALATION RT-Q6H PRN 10/27/21 10/27/21 History Sulfate Hfa] Cholecalciferol [Vitamin D3 (25 25 mcg PO DAILY 10/27/21 10/27/21 History Mcg = 1000 Iu)] Lidocaine 5% Patch [Lidoderm] 1 patch TRANSDERM DAILY PRN 10/27/21 10/27/21 History Mometasone/Formoterol [Dulera 100 2 puff INHALATION RT-BID 10/27/21 10/27/21 History Mcg-5 Mcg Inhaler] Tiotropium 2.5 Mcg/Puff [Spiriva 2 puff INHALATION RT-DAILY 10/27/21 10/27/21 History Respimat 2.5 Mcg] lisinopriL [Prinivil] 10 mg PO DAILY 10/27/21 10/27/21 History Allergies Allergy/AdvReac Type Severity Reaction Status Date / Time No Known Allergies Allergy Verified 10/27/21 13:43 Physical Exam Osteopathic Statement: *. No significant issues noted on an osteopathic structural exam other than those noted in the History and Physical/Consult. Vitals: Vital Signs Temp Pulse Resp BP Pulse Ox FiO2 10/27/21 16:03 45 10/27/21 15:20 91 18 99/79 100 50 10/27/21 15:10 87 18 113/81 100 50 10/27/21 15:00 90 18 130/93 100 50 10/27/21 14:30 115 H 18 127/94 100 50 10/27/21 14:26 122 H 18 127/94 100 50 10/27/21 14:00 108 H 18 138/97 100 10/27/21 13:59 50 10/27/21 13:00 129 H 18 138/100 99 10/27/21 12:40 122 H 18 140/87 99 06/16/22 12:30 144/93 10/27/21 11:50 131/94 10/27/21 11:40 149/106 10/27/21 11:30 131/78 10/27/21 11:17 50 10/27/21 10:50 10 L 10/27/21 10:49 10 L 10/27/21 10:45 97.6 F 160 H 8 L 149/93 97 Intake and Output 10/27/21 10/27/21 10/27/21 06:59 14:59 22:59 Intake Total 0.622 Output Total 675 360 Balance -674.378 -360 Intake: Intake, IV Titration 0.622 Amount propofoL 1,000 mg In 0.622 Empty Bag 1 bag @ 5 MCG/ KG/MIN 1.383 mls/hr IV . Q24H [facility] Rx#:[id number] Output: Gastric Drainage 225 Urine 675 135 Uretheral (Phillips) 375 Other: Weight 46.1 kg Results CBC & Chem 7: 10/27/21 10:58 10/27/21 10:58 Labs: Abnormal Lab Results - Last 24 Hours (Table) 10/27/21 10/27/21 10/27/21 Range/Units 10:58 10:58 10:58 MCHC 30.3 L (31.0-37.0) g/dL APTT 32.3 H (22.0-30.0) sec ABG pH (7.35-7.45) ABG pCO2 (35-45) mmHg ABG pO2 (83-108) mmHg ABG HCO3 (21-25) mmol/L ABG O2 Saturation (94-97) % Sodium 126 L (137-145) mmol/L Chloride 92 L (98-107) mmol/L Carbon Dioxide 11 L (22-30) mmol/L Glucose 230 H (74-99) mg/dL Plasma Lactic Acid Paco (0.7-2.0) mmol/L Total Protein 5.6 L (6.3-8.2) g/dL Urine Protein (Negative) Urine Blood (Negative) Ur Leukocyte Esterase (Negative) 10/27/21 10/27/21 10/27/21 Range/Units 10:58 12:02 12:15 MCHC (31.0-37.0) g/dL APTT (22.0-30.0) sec ABG pH 7.13 L* (7.35-7.45) ABG pCO2 53 H (35-45) mmHg ABG pO2 139 H (83-108) mmHg ABG HCO3 18 L (21-25) mmol/L ABG O2 Saturation 98.2 H (94-97) % Sodium (137-145) mmol/L Chloride (98-107) mmol/L Carbon Dioxide (22-30) mmol/L Glucose (74-99) mg/dL Plasma Lactic Acid Paco 18.8 H* (0.7-2.0) mmol/L Total Protein (6.3-8.2) g/dL Urine Protein 2+ H (Negative) Urine Blood Small H (Negative) Ur Leukocyte Esterase Trace H (Negative) 10/27/21 Range/Units 14:46 MCHC (31.0-37.0) g/dL APTT (22.0-30.0) sec ABG pH (7.35-7.45) ABG pCO2 (35-45) mmHg ABG pO2 (83-108) mmHg ABG HCO3 (21-25) mmol/L ABG O2 Saturation (94-97) % Sodium (137-145) mmol/L Chloride (98-107) mmol/L Carbon Dioxide (22-30) mmol/L Glucose (74-99) mg/dL Plasma Lactic Acid Paco 4.4 H* (0.7-2.0) mmol/L Total Protein (6.3-8.2) g/dL Urine Protein (Negative) Urine Blood (Negative) Ur Leukocyte Esterase (Negative)
[2021-10-27] MEDS ORDERED: ACYCLOVIR SODIUM 900 MG in SODIUM CHLORIDE 0.9% 250 ML IV SCH (17:00)
--- NOTE | 2021-10-27 17:42 | P.CNNES ---
History of Present Illness Consult date: 10/27/21 Requesting physician: Angel Upton Reason for Consult: Status epilepticus History of Present Illness: Patient is a 81-year-old male came to the hospital by ambulance today at 10:43 AM. According to EMS flow sheet, when they arrived, found patient having a seizure. He never had had any seizure before. Patient's eyes were up and to the right. Patient's denied any recent trauma or complaints. Patient's has mentioned that he was fine earlier in the morning at 9 AM and she had spoken to him. Patient had a second seizure for which he was given Versed 2.5 mg by EMS. Patient's blood pressure was systolic 100, diastolic could not be detected. Pulse 145, respiration 18, saturation 99% EKG shows sinus tachycardia, blood sugar was 135. Vital signs on arrival blood pressure 149/93, pulse rate [address] head showed no acute intracranial hemorrhage or midline shift. There is mild to moderate diffuse cerebral atrophy and moderate to advanced chronic small vessel ischemic change redemonstrated. No significant change from most recent CT. I personally reviewed CT head, agree with the findings, that there is significant generalized atrophy. 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 CTA of head and neck showed chronic occlusion of the right vertebral artery. Otherwise no significant stenosis, occlusion, dissection or aneurysm seen in the neck all the intracranial arteries. EKG shows atrial fibrillation with rapid ventricular rate. Blood tests shows normal CBC, PT/PTT, pH was 7.13, pCO2 53 and pO2 139 saturation 98% sodium 126 potassium 4.2, normal renal and hepatic panel. Troponin negative. Lactate was 18.8. UA negative urine drug screen negative. When patient arrived to the ER, patient was having agonal breathing, with minimal gag reflex. He had no spontaneous movement and did not withdraw to pain. He had pinpoint pupils bilaterally with right gaze deviation. Patient was immediately intubated in the ER and taken to CT. ED staff discuss case with neuro intervention, and patient was considered not a candidate for TPA. Patient was given Keppra 1500 mg loading dose. At present patient is on propofol 7.5 mcg/kg gram per minute and has received Ativan 1.5 mg in the ER. Patient is on Ativan drip 1 mg per hour. Patient's home medications include lisinopril 10 mg, albuterol, aspirin 81 mg. Review of Systems ROS unobtainable: due to endotracheal tube, due to mental status Past Medical History Past Medical History: Coronary Artery Disease (CAD), COPD, CVA/TIA, Hearing Disorder / Deafness, Hypertension, Myocardial Infarction ([place]), Osteoarthritis (OA), Prostate Disorder Last Myocardial Infarction Date:: 2006 History of Any Multi-Drug Resistant Organisms: None Reported Past Surgical History: Appendectomy, Heart Catheterization With Stent, Tonsillectomy Additional Past Surgical History / Comment(s): BILROTH 2 Past Anesthesia/Blood Transfusion Reactions: No Reported Reaction Additional Past Anesthesia/Blood Transfusion Reaction / Comment(s): pt never received blood transfusion Date of Last Stent Placement:: 2006 Past Psychological History: No Psychological Hx Reported Smoking Status: Current every day smoker Past Alcohol Use History: None Reported Past Drug Use History: None Reported - Past Family History Mother Family Medical History: No Reported History Medications and Allergies Home Medications Medication Instructions Recorded Confirmed Type Aspirin EC [Ecotrin Low Dose] 81 mg PO DAILY 04/01/20 10/27/21 History Albuterol Nebulized [Ventolin 2.5 mg INHALATION RT-Q4H 10/27/21 10/27/21 History Nebulized] Albuterol Sulfate [Albuterol 2 puff INHALATION RT-Q6H PRN 10/27/21 10/27/21 History Sulfate Hfa] Cholecalciferol [Vitamin D3 (25 25 mcg PO DAILY 10/27/21 10/27/21 History Mcg = 1000 Iu)] Lidocaine 5% Patch [Lidoderm] 1 patch TRANSDERM DAILY PRN 10/27/21 10/27/21 History Mometasone/Formoterol [Dulera 100 2 puff INHALATION RT-BID 10/27/21 10/27/21 History Mcg-5 Mcg Inhaler] Tiotropium 2.5 Mcg/Puff [Spiriva 2 puff INHALATION RT-DAILY 10/27/21 10/27/21 History Respimat 2.5 Mcg] lisinopriL [Prinivil] 10 mg PO DAILY 10/27/21 10/27/21 History Allergies Allergy/AdvReac Type Severity Reaction Status Date / Time No Known Allergies Allergy Verified 10/27/21 13:43 Physical Examination - Vital Signs Vital Signs: Vital Signs Temp Pulse Resp BP Pulse Ox FiO2 10/27/21 13:59 50 10/27/21 13:00 129 H 18 138/100 99 10/27/21 12:40 122 H 18 140/87 99 10/27/21 12:30 144/93 10/27/21 11:50 131/94 10/27/21 11:40 149/106 10/27/21 11:30 131/78 10/27/21 11:17 50 10/27/21 10:45 97.6 F 160 H 8 L 149/93 97 Intake and Output 10/26/21 10/27/21 10/27/21 22:59 06:59 14:59 Intake Total 0.622 Output Total 675 Balance -674.378 Intake: Intake, IV Titration 0.622 Amount propofoL 1,000 mg In 0.622 Empty Bag 1 bag @ 5 MCG/ KG/MIN 1.383 mls/hr IV . Q24H [facility] Rx#:[id number] Output: Urine 675 Uretheral (Shirley) 375 Other: Weight 46.1 kg Patient is an elderly somewhat cachectic male, who is comatose. Patient comatose, intubated, sedated. On cranial examination, pupils are pinpoint about 2 mm, minimally reacting. Oculocephalics are absent. Corneal present on the left side only. Visual rausch couldn't be tested. Lower cranial nerves cannot be tested. On muscle strength testing, patient's tone is increased in the legs more than arms. No obvious seizure activity noted. Deep tendon reflexes are diminished plantars are upgoing bilaterally. Sensory to touch or pinprick evoked no response. Cerebellar function and gait cannot be assessed. On general examination, there is no carotid bruit or murmur, S1-S2 audible. Abdomen is soft nontender. Chest is clear. Peripheral pulses are present. No edema. Results - Laboratory Findings CBC and BMP: 10/28/21 03:35 10/28/21 07:36 Abnormal Lab Findings: Abnormal Labs 10/27/21 10/27/21 10/27/21 10:58 10:58 10:58 MCHC 30.3 L APTT 32.3 H ABG pH ABG pCO2 ABG pO2 ABG HCO3 ABG O2 Saturation Sodium 126 L Chloride 92 L Carbon Dioxide 11 L Glucose 230 H Plasma Lactic Acid Paco Total Protein 5.6 L Urine Protein Urine Blood Ur Leukocyte Esterase 10/27/21 10/27/21 10/27/21 10:58 12:02 12:15 MCHC APTT ABG pH 7.13 L* ABG pCO2 53 H ABG pO2 139 H ABG HCO3 18 L ABG O2 Saturation 98.2 H Sodium Chloride Carbon Dioxide Glucose Plasma Lactic Acid Paco 18.8 H* Total Protein Urine Protein 2+ H Urine Blood Small H Ur Leukocyte Esterase Trace H Assessment and Plan Assessment: * Status epilepticus * Ventilator-dependent respiratory failure, status post intubation * Lactic acidosis, likely due to a prolonged seizure. * Hyponatremia * CAD * COPD * Hypertension * Hard of hearing * Osteoarthritis Plan: * Patient has presented with status epilepticus of unclear etiology. * EEG revealed low amplitude PLEDS on the right side. Patient has received Keppra 1500 mg IV. * We will give Dilantin 1 g loading dose. * Patient will be started on acyclovir empirically to cover HSV encephalitis. * Patient was a no code. Patient's family have made decision to observe for 24 hours. If no improvement, will consider withdrawing care. * Neurology will follow. * Discussed at length with ED physician multiple times and then Dr. Ozuna. * Thank you for the consult. Time with Patient: Greater than 30
--- NOTE | 2021-10-27 19:55 | EEG ---
ELECTROENCEPHALOGRAM REPORT DATE OF SERVICE: 10/27/2021 PREAMBLE: This 81-year-old male with new onset seizure. Patient is present with status epilepticus. EEG FINDINGS: This is a 21 channel digital EEG recorded with video component, utilizing 10/20 international system with referential and bipolar montages. The recording starts and continues with presence of diffuse low amplitude mixed delta and theta slowing seen in bihemispheric region. There is frequent low amplitude periodic lateralized epileptiform discharges seen over the right hemispheric region. Clinically, no seizure activity was noted. Different stages of sleep were not seen. Photic stimulation was not performed. IMPRESSION: This is an abnormal EEG due to: 1. The presence of frequent low amplitude periodic lateralized epileptiform discharges over the right hemispheric region, suggestive of focal cortical neuronal dysfunction with underlying cortical irritability and tendency for seizures. 2. Background slowing of moderate to severe degree, suggestive of generalized cerebral dysfunction as can be seen with toxic metabolic encephalopathy, due to diffuse structural brain abnormality or from postictal effect. Clinical correlation and followup EEG recommended. MMMISTI / KENNYN: [id number] / REID
[2021-10-27] MEDS: ACYCLOVIR SODIUM 900 MG in SODIUM CHLORIDE 0.9% 250 ML IV SCH (20:53)
[2021-10-27] MEDS: levETIRAcetam IV 1,000 MG in SALINE 1 100ML.BAG IVPB SCH (21:00)
[2021-10-27] MEDS: SODIUM CHLORIDE 0.9% 1,000 ML IV SCH (23:40)
[2021-10-27 23:45] LABS: Glucose,Whole Blood 119 mg/dL (70-110)
[2021-10-28 04:08] LABS: HCT 44.2 % (39.0-53.0); HGB 14.1 gm/dL (13.0-17.5); MCH 28.9 pg (25.0-35.0); Mean Platelet Volume 8.4; Platelet Count 263 k/uL (150-450); RBC 4.89 m/uL (4.30-5.90); RDW 13.3 % (11.5-15.5)
[2021-10-28 04:11] LABS: MCV 90.4 fL (80.0-100.0)
[2021-10-28 04:56] LABS: Calcium 7.9 mg/dL (8.4-10.2); Potassium 4.8 mmol/L (3.5-5.1)
[2021-10-28 05:51] LABS: Glucose,Whole Blood 94 mg/dL (70-110)
[2021-10-28 06:25] LABS: ABG Base Excess -3.4 mmol/L; ABG HCO3 23 mmol/L (21-25); ABG Oxygen Saturation 97.3 % (94-97); ABG PCO2 48 mmHg (35-45); ABG PH 7.29 (7.35-7.45); ABG PO2 90 mmHg (83-108); ABG TCO2 25 mmol/L (19-24); Allen Test Performed? Yes
--- NOTE | 2021-10-28 08:18 | XR ---
EXAMINATION TYPE: XR chest 1V portable DATE OF EXAM: 10/28/2021 Comparison: 10/27/2021 Clinical History: 81-year-old male increase in oxygen demands Findings: ET tube tip at the level of the medial clavicular heads. The NG tube is slightly short. Advance by 5 cm so that the side hole enters the stomach. Heart normal size. Hyperinflation. Overlying external ar tifact at the right apex limits assessment. No klarissa consolidation or pleural effusion. Surgical clip s at the GE junction. Impression: 1. COPD. Overlying external artifact in the right apex. No definite acute process. 2. Advance the NG tube by 5 cm so that the sidehole enters the stomach. Surgical clips at the GE junc tion.
[2021-10-28] MEDS: levETIRAcetam IV 1,000 MG in SALINE 1 100ML.BAG IVPB SCH (08:34)
[2021-10-28] MEDS: ACYCLOVIR SODIUM 900 MG in SODIUM CHLORIDE 0.9% 250 ML IV SCH (08:36)
[2021-10-28] MEDS ORDERED: PHENYTOIN SODIUM INJ 50 MG/ML 2 ML VIAL IVP SCH (09:00)
[2021-10-28] MEDS ORDERED: PHENYTOIN SODIUM INJ 200 MG in SODIUM CHLORIDE 0.9% 36 ML IVPB SCH (09:00)
[2021-10-28] MEDS ORDERED: SODIUM CHLORIDE 0.9% 1,000 ML IV ONE (09:58)
--- NOTE | 2021-10-28 10:47 | P.PN ---
Subjective Chart was reviewed and patient was seen and examined. Patient is intensive care unit currently intubated sedated on the ventilator. He is unresponsive. He was admitted yesterday with status epilepticus, respiratory failure, intubated in emergency department. He is currently intensive care unit. He was evaluated by critical care and neurology. He is empirically treated for H S/P encephalitis. He is no code and family considering comfort care measures if no further improvements. His lactic acid on admission was 18.8, trended down to 5.7 this morning. Objective - Vital Signs Vital signs: Vital Signs Temp 97.4 F L 10/28/21 04:00 Pulse 103 H 10/28/21 10:00 Resp 18 10/28/21 10:00 BP 65/50 10/28/21 10:00 Pulse Ox 98 10/28/21 10:00 FiO2 45 10/28/21 08:00 Intake & Output 10/27/21 10/28/21 10/28/21 18:59 06:59 18:59 Intake Total 0.622 1507.586 8120.760 Output Total 1035 240 50 Balance -1034.378 974.290 3926.760 Weight 46.1 kg 48.8 kg Intake: IV 750 270 .9 110 270 Sodium Chloride 0.9% 1, 640 000 ml @ 80 mls/hr IV . [id number] [facility] Rx#:[id number] Intake, IV Titration 0.622 791.642 3639.760 Amount Acyclovir Sodium 900 mg 250 250 In Sodium Chloride 0.9% 250 ml @ 100 mls/hr IV Q12HR [facility] Rx#:[id number] Diltiazem 125 mg In 107.833 Sodium Chloride 0.9% 100 ml @ 5 MG/HR 5 mls/hr IV .Q24H [facility] Rx#:[id number] LORazepam Vial 25 mg In 162.667 Dextrose 5% in Water 238 ml @ Per Protocol IV .Q0M [facility] Rx#:[id number] Phenytoin Sodium Inj 1, 100 000 mg In Sodium Chloride 0.9% 100 ml @ 200 mls/hr IVPB ONCE STA Rx#: [id number] Phenytoin Sodium Inj 200 36 mg In Sodium Chloride 0.9 % 36 ml @ 80 mls/hr IVPB Q12HR [facility] Rx#:[id number] Sodium Chloride 0.9% 1, 1000 000 ml @ 999 mls/hr IV . Q1H1M [facility] Rx#:[id number] propofoL 1,000 mg In 0.622 45.927 Empty Bag 1 bag @ 5 MCG/ KG/MIN 1.383 mls/hr IV . Q24H [facility] Rx#:[id number] Output: Gastric Drainage 225 Urine 810 240 50 Uretheral (Shirley) 375 Other: Voiding Method Indwelling Catheter Indwelling Catheter - Exam Intubated sedated, no response, no response to nociceptive stimuli Head and neck: Anicteric sclera, no facial asymmetry, pupils are small but equal, neck is supple without rigidity, no neck masses or neck vein distention Heart: Regular rhythm and rate, S1, S2; no murmurs rubs or gallops Lungs: Breath sounds present bilateral, no wheezing, rhonchi or crackles Abdomen: Bowel sounds present throughout, abdomen is soft, nontender, nondi stended, no hernias or organomegaly, Extremities: No peripheral edema, no cyanosis, warm well perfused with palpable dorsalis pedis pulses bilateral and good capillary refill, without joint swelling or deformities Neurological: He does not withdraw from pain, pupils are in midline and are symmetrical, no facial asymmetry, no ankle clonus or Babinski - Labs CBC & Chem 7: 10/28/21 03:35 10/28/21 07:36 Labs: Abnormal Lab Results - Last 24 Hours (Table) 10/27/21 10/27/21 10/27/21 Range/Units 10:58 10:58 10:58 WBC (3.8-10.6) k/uL MCHC 30.3 L (31.0-37.0) g/dL APTT 32.3 H (22.0-30.0) sec ABG pH (7.35-7.45) ABG pCO2 (35-45) mmHg ABG pO2 (83-108) mmHg ABG HCO3 (21-25) mmol/L ABG Total CO2 (19-24) mmol/L ABG O2 Saturation (94-97) % Sodium 126 L (137-145) mmol/L Chloride 92 L (98-107) mmol/L Carbon Dioxide 11 L (22-30) mmol/L Glucose 230 H (74-99) mg/dL POC Glucose (mg/dL) (70-110) mg/dL Plasma Lactic Acid Paco (0.7-2.0) mmol/L Calcium (8.4-10.2) mg/dL Total Protein 5.6 L (6.3-8.2) g/dL Urine Protein (Negative) Urine Blood (Negative) Ur Leukocyte Esterase (Negative) 10/27/21 10/27/21 10/27/21 Range/Units 10:58 12:02 12:15 WBC (3.8-10.6) k/uL MCHC (31.0-37.0) g/dL APTT (22.0-30.0) sec ABG pH 7.13 L* (7.35-7.45) ABG pCO2 53 H (35-45) mmHg ABG pO2 139 H (83-108) mmHg ABG HCO3 18 L (21-25) mmol/L ABG Total CO2 (19-24) mmol/L ABG O2 Saturation 98.2 H (94-97) % Sodium (137-145) mmol/L Chloride (98-107) mmol/L Carbon Dioxide (22-30) mmol/L Glucose (74-99) mg/dL POC Glucose (mg/dL) (70-110) mg/dL Plasma Lactic Acid Paco 18.8 H* (0.7-2.0) mmol/L Calcium (8.4-10.2) mg/dL Total Protein (6.3-8.2) g/dL Urine Protein 2+ H (Negative) Urine Blood Small H (Negative) Ur Leukocyte Esterase Trace H (Negative) 10/27/21 10/27/21 10/27/21 Range/Units 14:46 18:10 20:42 WBC (3.8-10.6) k/uL MCHC (31.0-37.0) g/dL APTT (22.0-30.0) sec ABG pH (7.35-7.45) ABG pCO2 (35-45) mmHg ABG pO2 (83-108) mmHg ABG HCO3 (21-25) mmol/L ABG Total CO2 (19-24) mmol/L ABG O2 Saturation (94-97) % Sodium (137-145) mmol/L Chloride (98-107) mmol/L Carbon Dioxide (22-30) mmol/L Glucose (74-99) mg/dL POC Glucose (mg/dL) (70-110) mg/dL Plasma Lactic Acid Paco 4.4 H* 3.0 H* 3.6 H* (0.7-2.0) mmol/L Calcium (8.4-10.2) mg/dL Total Protein (6.3-8.2) g/dL Urine Protein (Negative) Urine Blood (Negative) Ur Leukocyte Esterase (Negative) 10/27/21 10/27/21 10/28/21 Range/Units 23:43 23:45 03:35 WBC (3.8-10.6) k/uL MCHC (31.0-37.0) g/dL APTT (22.0-30.0) sec ABG pH (7.35-7.45) ABG pCO2 (35-45) mmHg ABG pO2 (83-108) mmHg ABG HCO3 (21-25) mmol/L ABG Total CO2 (19-24) mmol/L ABG O2 Saturation (94-97) % Sodium (137-145) mmol/L Chloride (98-107) mmol/L Carbon Dioxide (22-30) mmol/L Glucose (74-99) mg/dL POC Glucose (mg/dL) 119 H (70-110) mg/dL Plasma Lactic Acid Paco 4.5 H* 3.1 H* (0.7-2.0) mmol/L Calcium (8.4-10.2) mg/dL Total Protein (6.3-8.2) g/dL Urine Protein (Negative) Urine Blood (Negative) Ur Leukocyte Esterase (Negative) 10/28/21 10/28/21 10/28/21 Range/Units 03:35 03:35 :22 WBC 11.0 H (3.8-10.6) k/uL MCHC (31.0-37.0) g/dL APTT (22.0-30.0) sec ABG pH 7.29 L (7.35-7.45) ABG pCO2 48 H (35-45) mmHg ABG pO2 (83-108) mmHg ABG HCO3 (21-25) mmol/L ABG Total CO2 25 H (19-24) mmol/L ABG O2 Saturation 97.3 H (94-97) % Sodium 126 L (137-145) mmol/L Chloride (98-107) mmol/L Carbon Dioxide 19 L (22-30) mmol/L Glucose (74-99) mg/dL POC Glucose (mg/dL) (70-110) mg/dL Plasma Lactic Acid Paco (0.7-2.0) mmol/L Calcium 7.9 L (8.4-10.2) mg/dL Total Protein (6.3-8.2) g/dL Urine Protein (Negative) Urine Blood (Negative) Ur Leukocyte Esterase (Negative) 10/28/21 10/28/21 Range/Units 07:36 07:36 WBC (3.8-10.6) k/uL MCHC (31.0-37.0) g/dL APTT (22.0-30.0) sec ABG pH (7.35-7.45) ABG pCO2 (35-45) mmHg ABG pO2 (83-108) mmHg ABG HCO3 (21-25) mmol/L ABG Total CO2 (19-24) mmol/L ABG O2 Saturation (94-97) % Sodium 127 L (137-145) mmol/L Chloride (98-107) mmol/L Carbon Dioxide (22-30) mmol/L Glucose (74-99) mg/dL POC Glucose (mg/dL) (70-110) mg/dL Plasma Lactic Acid Paco 5.2 H* (0.7-2.0) mmol/L Calcium (8.4-10.2) mg/dL Total Protein (6.3-8.2) g/dL Urine Protein (Negative) Urine Blood (Negative) Ur Leukocyte Esterase (Negative) Assessment and Plan Assessment: #Status epilepticus #Generalized tonic-clonic seizures of unclear etiology #Acute hypoxic respiratory failure #Severe lactic acidosis #Severe encephalopathy Continue per neurology recommendations Palliative care consult and comfort care measures being considered Patient is a no code
[2021-10-28] MEDS ORDERED: ARTIFICIAL TEARS-HYPROMELLOSE DROPS 15 ML BTL BOTH EYES PRN (11:29)
[2021-10-28] MEDS ORDERED: polyethylene glycoL 3350 17 GM POWD.PACK PO PRN (11:29)
[2021-10-28] MEDS ORDERED: ACETAMINOPHEN SUPPOSITORY 650 MG SUPP RECTAL PRN (11:29)
[2021-10-28] MEDS ORDERED: IBUPROFEN 400 MG TAB PO PRN (11:29)
[2021-10-28] MEDS ORDERED: guaiFENesin-Coden 100-10MG/5ML 10 ML CUP PO PRN (11:29)
[2021-10-28] MEDS ORDERED: ONDANSETRON 4 MG/2 ML VIAL IVP PRN (11:29)
[2021-10-28] MEDS ORDERED: HYDROmorphone 0.5 MG/0.5 ML SYRINGE IVP PRN (11:29)
[2021-10-28] MEDS ORDERED: ACETAMINOPHEN TAB 325 MG TAB PO PRN (11:29)
[2021-10-28] MEDS ORDERED: HYDROcodone/APAP 5-325MG 1 EACH TAB PO PRN (11:29)
[2021-10-28] MEDS ORDERED: LORazepam 2 MG/ML INJ IV PRN (11:29)
[2021-10-28] MEDS ORDERED: ZIPRASIDONE 20 MG VIAL IM PRN (11:29)
[2021-10-28] MEDS ORDERED: DRY MOUTH SPRAY 44.3 SPRAY/44.3 ML SPRAY MUCOUS MEM PRN (11:29)
[2021-10-28] MEDS ORDERED: guaiFENesin SYRUP 100MG/5ML 200 MG/10 ML CUP PO PRN (11:29)
[2021-10-28] MEDS ORDERED: DIPHENOX-ATROP 2.5-0.025MG/5ML 60 ML BOTTLE PO PRN (11:29)
[2021-10-28 11:33] VITALS: TEMP 97.6
[2021-10-28] MEDS: MORPHINE SULFATE 2 MG/ML SYRINGE IV PRN ×2 (12:25→13:55)
--- NOTE | 2021-10-28 12:54 | EEG ---
ELECTROENCEPHALOGRAM REPORT DATE OF SERVICE: 10/28/2021 PREAMBLE: This is an 81-year-old male with status epilepticus. This is a follow-up study. Patient is comatose EEG FINDINGS: This is a 21-channel digital EEG recorded with video competent, utilizing 10/20 international system with referential and bipolar montages. The recording starts and continues with presence of significantly suppressed, low-amplitude activity, intermixed with some theta activity in bihemispheric region. Background does not seem to be reactive to eye opening or closing. On the right temporal, periodic lateralized epileptiform discharges are much less frequent and lower in amplitude. No electrographic seizure was recorded. Different stages of sleep were not seen. Photic stimulation was not performed. IMPRESSION: 1. This is a severely abnormal EEG due to background slowing of very severe degree. This is suggestive of generalized cerebral dysfunction as can be seen with toxic metabolic encephalopathy or related to diffuse structural brain abnormality. Clinical correlation is recommended. 2. The periodic lateralized epileptiform discharges over the right temporal region have significantly improved; less frequent and lower in amplitude. When compared to the EEG from yesterday, the epileptiform activity has improved, but the background appears worse and more suppressed. Clinical correlation also recommended. MMODL / IJN: [id number] / REID
--- NOTE | 2021-10-28 12:54 | P.CONS ---
History of Present Illness - Reason for Consult Consult date: 10/28/21 Goals of care Requesting physician: López Ozuna - Chief Complaint AMS, seizures - History of Present Illness 81-year-old male with a past medical history significant of HTN, CAD/[place], COPD, and CVA. He presented to the from from home with acute onset altered mental s tatus and seizure. Patient was found by his , with tonic-clonic seizure activity, with right gaze deviation, nonresponsive. Medics arrived and the patient was transported to the hospital with concern for acute CVA and new onset seizure. In the atient was agonal with minimal gag reflex on arrival. He had no spontaneous movement and did not withdraw to pain. He had pinpoint pupils bilaterally with right gaze deviation. He is a full code according to paramedics. He was immediately intubated and taken to CT. CT without contrast negative for intracranial hemorrhage or mass effect, CT angiography negative for acute stenosis or occlusion, no dissection noted. Patient had laboratory testing significant for hyponatremia, and HIGH lactic acid of 18 which was likely secondary to prolonged seizure. Neuro interventionalist did not recommend TPA. This was thought to be more consistent with a primary seizure disorder rather than acute CVA. The patient wass started on Keppra, Propofol, and Ativan. The patient's does gave a history which supported seizure activity without any preceding issues. She did indicate that the patient did not want to be resuscitated and was a DO NOT RESUSCITATE. Paramedics were apparently not aware of this and had informed the medical staff here that the patient was a full code. Past Medical History Past Medical History: Coronary Artery Disease (CAD), COPD, CVA/TIA, Hearing Disorder / Deafness, Hypertension, Myocardial Infarction ([place]), Osteoarthritis (OA), Prostate Disorder Last Myocardial Infarction Date:: 2006 History of Any Multi-Drug Resistant Organisms: None Reported Past Surgical History: Appendectomy, Heart Catheterization With Stent, Tonsillectomy Additional Past Surgical History / Comment(s): BILROTH 2 Past Anesthesia/Blood Transfusion Reactions: No Reported Reaction Additional Past Anesthesia/Blood Transfusion Reaction / Comm: pt never received blood transfusion Date of Last Stent Placement:: 2006 Past Psychological History: No Psychological Hx Reported Smoking Status: Current every day smoker Past Alcohol Use History: None Reported Past Drug Use History: None Reported - Past Family History Mother Family Medical History: No Reported History Medications and Allergies Home Medications Medication Instructions Recorded Confirmed Type Aspirin EC [Ecotrin Low Dose] 81 mg PO DAILY 04/01/20 10/27/21 History Albuterol Nebulized [Ventolin 2.5 mg INHALATION RT-Q4H 10/27/21 10/27/21 History Nebulized] Albuterol Sulfate [Albuterol 2 puff INHALATION RT-Q6H PRN 10/27/21 10/27/21 History Sulfate Hfa] Cholecalciferol [Vitamin D3 (25 25 mcg PO DAILY 10/27/21 10/27/21 History Mcg = 1000 Iu)] Lidocaine 5% Patch [Lidoderm] 1 patch TRANSDERM DAILY PRN 10/27/21 10/27/21 History Mometasone/Formoterol [Dulera 100 2 puff INHALATION RT-BID 10/27/21 10/27/21 History Mcg-5 Mcg Inhaler] Tiotropium 2.5 Mcg/Puff [Spiriva 2 puff INHALATION RT-DAILY 10/27/21 10/27/21 History Respimat 2.5 Mcg] lisinopriL [Prinivil] 10 mg PO DAILY 10/27/21 10/27/21 History Allergies Allergy/AdvReac Type Severity Reaction Status Date / Time No Known Allergies Allergy Verified 10/27/21 13:43 Physical Exam Vitals: Vital Signs Temp Pulse Resp BP Pulse Ox FiO2 10/28/21 11:12 45 10/28/21 11:00 97.6 F 98 18 67/45 99 10/28/21 10:30 93 18 64/50 99 10/28/21 10:00 103 H 18 65/50 98 10/28/21 09:30 77 18 69/58 100 10/28/21 09:00 77 18 83/62 99 10/28/21 08:30 75 18 91/70 99 10/28/21 08:00 66 18 100 45 10/28/21 07:41 45 10/28/21 07:30 63 18 67/52 99 10/28/21 07:00 56 L 18 67/52 99 10/28/21 06:30 63 18 65/53 99 10/28/21 06:00 60 18 68/53 98 10/28/21 05:30 73 18 69/55 100 10/28/21 05:00 64 18 69/55 100 10/28/21 04:30 67 18 73/54 99 10/28/21 04:00 97.4 F L 64 20 73/56 99 45 10/28/21 03:30 67 20 80/64 99 10/28/21 03:00 77 18 66/52 100 10/28/21 02:56 45 10/28/21 02:30 71 18 72/59 99 10/28/21 02:00 79 18 74/59 99 10/28/21 01:30 84 18 73/62 99 10/28/21 01:00 86 18 83/62 99 10/28/21 00:30 87 18 81/64 99 10/28/21 00:03 100 18 73/62 99 10/28/21 00:00 97.7 F 101 H 18 81/64 99 45 10/27/21 23:42 45 10/27/21 23:30 85 18 74/62 99 10/27/21 23:20 93 18 75/62 99 10/27/21 23:10 79 20 75/62 98 10/27/21 23:00 82 20 82/67 98 10/27/21 22:50 84 20 82/67 99 10/27/21 22:40 78 20 82/67 99 10/27/21 22:30 78 20 82/67 99 10/27/21 22:20 71 20 82/67 99 10/27/21 22:10 68 18 82/67 99 10/27/21 22:00 66 18 93/71 99 45 10/27/21 21:50 64 18 93/71 99 10/27/21 21:40 64 18 93/71 99 10/27/21 21:30 64 18 93/71 98 10/27/21 21:20 67 18 83/60 99 10/27/21 21:10 70 18 83/60 99 10/27/21 21:00 68 18 81/60 98 10/27/21 20:50 68 18 81/60 98 10/27/21 20:40 82 18 78/59 100 10/27/21 20:30 70 18 78/59 99 10/27/21 20:20 68 18 78/60 98 10/27/21 20:10 68 18 78/60 99 10/27/21 20:00 97.6 F 67 18 87/66 100 45 10/27/21 19:50 68 18 87/66 99 10/27/21 19:40 76 18 90/74 99 10/27/21 19:10 75 16 89/63 100 10/27/21 19:00 90 15 98/71 100 10/27/21 18:57 45 10/27/21 18:30 66 18 89/63 10/27/21 18:20 68 18 10/27/21 18:10 65 18 10/27/21 18:00 67 18 10/27/21 17:50 73 18 10/27/21 17:30 65 18 87/63 45 10/27/21 17:00 67 18 91/71 100 45 10/27/21 16:30 79 18 92/69 100 45 10/27/21 16:03 45 10/27/21 15:20 91 18 99/79 100 50 10/27/21 15:10 87 18 113/81 100 50 10/27/21 15:00 90 18 130/93 100 50 10/27/21 14:30 115 H 18 127/94 100 50 10/27/21 14:26 122 H 18 127/94 100 50 10/27/21 14:00 108 H 18 138/97 100 10/27/21 13:59 50 10/27/21 13:00 129 H 18 138/100 99 10/27/21 12:40 122 H 18 140/87 99 10/27/21 12:30 144/93 Intake and Output 10/27/21 10/28/21 10/28/21 22:59 06:59 14:59 Intake Total 270 103.113 5520.760 Output Total 460 140 50 Balance -190 234.505 2248.760 Intake: IV 20 730 270 .9 20 90 270 Sodium Chloride 0.9% 1, 640 000 ml @ 80 mls/hr IV . [id number] [facility] Rx#:[id number] Intake, IV Titration 250 737.904 2222.760 Amount Acyclovir Sodium 900 mg 250 250 In Sodium Chloride 0.9% 250 ml @ 100 mls/hr IV Q12HR [facility] Rx#:[id number] Diltiazem 125 mg In 107.833 Sodium Chloride 0.9% 100 ml @ 5 MG/HR 5 mls/hr IV .Q24H [facility] Rx#:[id number] LORazepam Vial 25 mg In 162.667 Dextrose 5% in Water 238 ml @ Per Protocol IV .Q0M [facility] Rx#:[id number] Phenytoin Sodium Inj 1, 100 000 mg In Sodium Chloride 0.9% 100 ml @ 200 mls/hr IVPB ONCE STA Rx#: [id number] Phenytoin Sodium Inj 200 36 mg In Sodium Chloride 0.9 % 36 ml @ 80 mls/hr IVPB Q12HR [facility] Rx#:[id number] Sodium Chloride 0.9% 1, 1000 000 ml @ 999 mls/hr IV . Q1H1M [facility] Rx#:[id number] propofoL 1,000 mg In 45.927 Empty Bag 1 bag @ 5 MCG/ KG/MIN 1.383 mls/hr IV . Q24H [facility] Rx#:[id number] Output: Gastric Drainage 225 Urine 235 140 50 Other: Voiding Method Indwelling Catheter Indwelling Catheter Indwelling Catheter Weight 48.8 kg General: Intubated and sedated HEENT: Head is atraumatic, normocephalic. Sclerae are clear. Pupils pinpoint, no reaction to light CV: Heart irregular in rate and rhythm, positive S1 and S2.No clicks, rubs or murmurs. No JVD. Peripheral pulses equal. 2/4 Lungs: Clear to auscultation bilaterally. No wheezes rales or rhonchi. Respirations even and nonlabored. No intercostal retractions. ETT to vent Abdomen/GI: Soft. Bowel sounds present in all 4 quadrants. Bowel sounds normoactive. No abdominal tenderness. NGT present to LIS : Shirley draining clear yellow urine Musculoskeletal/ Extremities: No tenderness on muscular exam. No ecchymosis. Vascular: Radial pulses equal. 2/4, no peripheral edema Skin: No rash. Neurologic:sedated, no spontaneous movement, does not withdrawal from pain Results CBC & Chem 7: 10/28/21 03:35 10/28/21 07:36 Labs: Abnormal Lab Results - Last 24 Hours (Table) 10/27/21 10/27/21 10/27/21 Range/Units 12:02 12:15 14:46 WBC (3.8-10.6) k/uL ABG pH 7.13 L* (7.35-7.45) ABG pCO2 53 H (35-45) mmHg ABG pO2 139 H (83-108) mmHg ABG HCO3 18 L (21-25) mmol/L ABG Total CO2 (19-24) mmol/L ABG O2 Saturation 98.2 H (94-97) % Sodium (137-145) mmol/L Carbon Dioxide (22-30) mmol/L POC Glucose (mg/dL) (70-110) mg/dL Plasma Lactic Acid Paco 4.4 H* (0.7-2.0) mmol/L Calcium (8.4-10.2) mg/dL Urine Protein 2+ H (Negative) Urine Blood Small H (Negative) Ur Leukocyte Esterase Trace H (Negative) 10/27/21 10/27/21 10/27/21 Range/Units 18:10 20:42 23:43 WBC (3.8-10.6) k/uL ABG pH (7.35-7.45) ABG pCO2 (35-45) mmHg ABG pO2 (83-108) mmHg ABG HCO3 (21-25) mmol/L ABG Total CO2 (19-24) mmol/L ABG O2 Saturation (94-97) % Sodium (137-145) mmol/L Carbon Dioxide (22-30) mmol/L POC Glucose (mg/dL) 119 H (70-110) mg/dL Plasma Lactic Acid Paco 3.0 H* 3.6 H* (0.7-2.0) mmol/L Calcium (8.4-10.2) mg/dL Urine Protein (Negative) Urine Blood (Negative) Ur Leukocyte Esterase (Negative) 10/27/21 10/28/21 10/28/21 Range/Units 23:45 03:35 03:35 WBC 11.0 H (3.8-10.6) k/uL ABG pH (7.35-7.45) ABG pCO2 (35-45) mmHg ABG pO2 (83-108) mmHg ABG HCO3 (21-25) mmol/L ABG Total CO2 (19-24) mmol/L ABG O2 Saturation (94-97) % Sodium (137-145) mmol/L Carbon Dioxide (22-30) mmol/L POC Glucose (mg/dL) (70-110) mg/dL Plasma Lactic Acid Paco 4.5 H* 3.1 H* (0.7-2.0) mmol/L Calcium (8.4-10.2) mg/dL Urine Protein (Negative) Urine Blood (Negative) Ur Leukocyte Esterase (Negative) 10/28/21 10/28/21 10/28/21 Range/Units 03:35 06:22 07:36 WBC (3.8-10.6) k/uL ABG pH 7.29 L (7.35-7.45) ABG pCO2 48 H (35-45) mmHg ABG pO2 (83-108) mmHg ABG HCO3 (21-25) mmol/L ABG Total CO2 25 H (19-24) mmol/L ABG O2 Saturation 97.3 H (94-97) % Sodium 126 L (137-145) mmol/L Carbon Dioxide 19 L (22-30) mmol/L POC Glucose (mg/dL) (70-110) mg/dL Plasma Lactic Acid Paco 5.2 H* (0.7-2.0) mmol/L Calcium 7.9 L (8.4-10.2) mg/dL Urine Protein (Negative) Urine Blood (Negative) Ur Leukocyte Esterase (Negative) 10/28/21 Range/Units 07:36 WBC (3.8-10.6) k/uL ABG pH (7.35-7.45) ABG pCO2 (35-45) mmHg ABG pO2 (83-108) mmHg ABG HCO3 (21-25) mmol/L ABG Total CO2 (19-24) mmol/L ABG O2 Saturation (94-97) % Sodium 127 L (137-145) mmol/L Carbon Dioxide (22-30) mmol/L POC Glucose (mg/dL) (70-110) mg/dL Plasma Lactic Acid Paco (0.7-2.0) mmol/L Calcium (8.4-10.2) mg/dL Urine Protein (Negative) Urine Blood (Negative) Ur Leukocyte Esterase (Negative) Chest x-ray: report reviewed CT Scan - head: report reviewed Assessment and Plan Assessment: Reason for consult - Goals of care Social * Occupation - Retired * Marital status - Patient to current , Cara, for 7 years. He had 4 prior marriages * Children/grandchildren - 4 adult children, 2 sons and 2 daughters * Residence - House * Who do you reside with - * ETOH - No * Tobacco - current smoker * Illicit drugs - no Spiritual/Cultural * A spiritual person - no * Judaism - Mu-Ism * Belong to a particular taoist - no * Beliefs a source of comfort and strength - no * Sabianist or cultural practices restrictions - no * EOL considerations/rituals? no Plan: Summary/Goals - The patient's and two sons are at the bedside. The , Cara, states that her and the patient have had many conversations about what their end-of-life wishes would be after his CVA. She states he would have never wanted to be put on the ventilator. She decided to give him 24 hours to see if there was any improvement in his condition. The patient is currently hypotensive and in Afib with RVR. He is off all sedation and and still unresponsive. Cara and the patient's sons state that they would like to withdraw care as soon as possible. They do not want to see him suffer any more. RN notified. She contacted the Dr. Smith and received an extubation order and comfort medications. Dr. Krause and Dr. Resendiz were also notified. Recommendations - Compassionate extubation Advanced Directives - No Code Status - DNR Thank you for this consult Kari Patiño [facility] Palliative Care Spectralink [phone] Email: [email or web address] Time with Patient: Greater than 30
--- NOTE | 2021-10-28 12:59 | P.PN ---
Subjective Progress Note Date: 10/28/21 Principal diagnosis: Acute hypoxic respiratory failure secondary to status epilepticus This is an 81-year-old white male with history of hypertension, patient was brought in by EMS this morning mostly with acute onset of altered mental status and seizure. According to the the patient had acute onset of tonic-clonic seizure activity with right days deviation and unresponsiveness. EMS arrived to the scene, patient was brought in and the impression was possible CVA and new onset seizure. Upon arrival to the ER, the patient was unresponsive, rigid, and he had immediate intubation and placed on mechanical ventilation. In the meantime the patient was placed on propofol and on Versed CT of the brain was basically nondiagnostic. And did not correlate with his presentation. Patient is now in the ER trauma 2, I saw him, reviewed his ventilator settings he is now on assist control rate of 18 tidal volume increased from 350-400, and he is on FiO2 of 50% and I cut it down to 45% is also on a PEEP of 5. ABG earlier showed a pO2 of 139 pCO2 53 pH of 7.13 and since those ABGs, his ventilator settings were changed. Patient had a relatively normal CBC. His sodium was noted to be low at 126 potassium 4.2. And his lactic acid was 18.8. Drug screen is negative. Urinalysis is basically unremarkable Reevaluated today on 10/28/21, patient is basically about the same. Remains intubated and mechanically ventilated. He is on assist control rate of 18 tidal volume 400 FiO2 45% and PEEP of 5. ABG showed a pO2 of 90 pCO2 48 pH of 7.29. Patient is hypotensive, and according to the nurse his does not want him to be on any pressors, and she is actually coming in to proceed to comfort care measures. Patient was seen by neurology, and he is maintained on acyclovir, Dilantin, Keppra, and after I evaluated the patient, I recommended that we stop Cardizem, fentanyl, and propofol. Patient is not responsive to any stimuli. Blood pressure is 65/50. Patient received 4 L liters of fluid /resuscitation in the ER and last night. Chest x-ray is showing evidence of COPD and no evidence of acute process. WBC count is 11 hemoglobin is 14.1. Phenytoin level is 12. Drug screen is negative Objective - Vital Signs Vital signs: Vital Signs Temp 97.6 F 10/28/21 11:00 Pulse 98 10/28/21 11:00 Resp 18 10/28/21 11:00 BP 67/45 10/28/21 11:00 Pulse Ox 99 10/28/21 11:00 FiO2 45 10/28/21 11:12 Intake & Output 10/27/21 10/28/21 10/28/21 18:59 06:59 18:59 Intake Total 0.622 3123.682 9467.760 Output Total 1035 240 50 Balance -1034.378 435.049 9112.760 Weight 46.1 kg 48.8 kg Intake: IV 750 270 .9 110 270 Sodium Chloride 0.9% 1, 640 000 ml @ 80 mls/hr IV . [id number] [facility] Rx#:[id number] Intake, IV Titration 0.622 095.642 1194.760 Amount Acyclovir Sodium 900 mg 250 250 In Sodium Chloride 0.9% 250 ml @ 100 mls/hr IV Q12HR [facility] Rx#:[id number] Diltiazem 125 mg In 107.833 Sodium Chloride 0.9% 100 ml @ 5 MG/HR 5 mls/hr IV .Q24H [facility] Rx#:[id number] LORazepam Vial 25 mg In 162.667 Dextrose 5% in Water 238 ml @ Per Protocol IV .Q0M [facility] Rx#:[id number] Phenytoin Sodium Inj 1, 100 000 mg In Sodium Chloride 0.9% 100 ml @ 200 mls/hr IVPB ONCE STA Rx#: [id number] Phenytoin Sodium Inj 200 36 mg In Sodium Chloride 0.9 % 36 ml @ 80 mls/hr IVPB Q12HR [facility] Rx#:[id number] Sodium Chloride 0.9% 1, 1000 000 ml @ 999 mls/hr IV . Q1H1M ONE Rx#:[id number] propofoL 1,000 mg In 0.622 45.927 Empty Bag 1 bag @ 5 MCG/ KG/MIN 1.383 mls/hr IV . Q24H [facility] Rx#:[id number] Output: Gastric Drainage 225 Urine 810 240 50 Uretheral (Shirley) 375 Other: Voiding Method Indwelling Catheter Indwelling Catheter - Exam General appearance: Revealed an 81-year-old white male intubated, mechanically ventilated, in no distress, unresponsive to any stimuli Head exam: atraumatic, normocephalic Eye exam: Absent: PERRL (2 mm bilaterally nonreactive) Neck exam: normal inspection. No neck masses, no JVD, endotracheal tube is intact. Respiratory exam: Diminished breath sound bilaterally no crackles or rhonchi or wheezes Cardiovascular Exam: Irregular irregular rhythm, no S3 gallop, 2/6 systolic murmur thought the precordium. GI/Abdominal exam: Soft nontender no megaly no rebound no guarding Extremities exam: No clubbing edema or cyanosis. Neurological exam: Unresponsive. (No spontaneous movement, no gag reflex, not withdrawing to pain., no posturing, no definitive seizure activity. Skin exam: No rashes, no cyanosis - Labs CBC & Chem 7: 10/28/21 03:35 10/28/21 07:36 Labs: Abnormal Lab Results - Last 24 Hours (Table) 10/27/21 10/27/21 10/27/21 Range/Units 14:46 18:10 20:42 WBC (3.8-10.6) k/uL ABG pH (7.35-7.45) ABG pCO2 (35-45) mmHg ABG Total CO2 (19-24) mmol/L ABG O2 Saturation (94-97) % Sodium (137-145) mmol/L Carbon Dioxide (22-30) mmol/L POC Glucose (mg/dL) (70-110) mg/dL Plasma Lactic Acid Paco 4.4 H* 3.0 H* 3.6 H* (0.7-2.0) mmol/L Calcium (8.4-10.2) mg/dL 10/27/21 10/27/21 10/28/21 Range/Units 23:43 23:45 03:35 WBC (3.8-10.6) k/uL ABG pH (7.35-7.45) ABG pCO2 (35-45) mmHg ABG Total CO2 (19-24) mmol/L ABG O2 Saturation (94-97) % Sodium (137-145) mmol/L Carbon Dioxide (22-30) mmol/L POC Glucose (mg/dL) 119 H (70-110) mg/dL Plasma Lactic Acid Paco 4.5 H* 3.1 H* (0.7-2.0) mmol/L Calcium (8.4-10.2) mg/dL 10/28/21 10/28/21 10/28/21 Range/Units 03:35 03:35 06:22 WBC 11.0 H (3.8-10.6) k/uL ABG pH 7.29 L (7.35-7.45) ABG pCO2 48 H (35-45) mmHg ABG Total CO2 25 H (19-24) mmol/L ABG O2 Saturation 97.3 H (94-97) % Sodium 126 L (137-145) mmol/L Carbon Dioxide 19 L (22-30) mmol/L POC Glucose (mg/dL) (70-110) mg/dL Plasma Lactic Acid Paco (0.7-2.0) mmol/L Calcium 7.9 L (8.4-10.2) mg/dL 10/28/21 10/28/21 Range/Units 07:36 07:36 WBC (3.8-10.6) k/uL ABG pH (7.35-7.45) ABG pCO2 (35-45) mmHg ABG Total CO2 (19-24) mmol/L ABG O2 Saturation (94-97) % Sodium 127 L (137-145) mmol/L Carbon Dioxide (22-30) mmol/L POC Glucose (mg/dL) (70-110) mg/dL Plasma Lactic Acid Paco 5.2 H* (0.7-2.0) mmol/L Calcium (8.4-10.2) mg/dL Assessment and Plan Assessment: Impression: Acute hypoxic respiratory failure secondary to status epilepticus, new onset seizures, possible CVA chronic hyponatremia possible SIADH Coronary arteriosclerosis and known history of coronary artery disease with previous ID, previous stent placement. History of underlying COPD Degenerative joint disease History of prostate cancer and, history of TURP History of CVA Ongoing nicotine addiction Recommendation: Continue ventilatory support Discontinue all narcotics and sedatives as the patient seems to be unresponsive to any stimuli at present 1 L of fluid bolus was ordered since the is refusing that he goes on pressors, as a blood pressure is relatively low. Consider comfort care measures as per 's wishes. Patient is critically ill, critical care time is over 30 minutes Time with Patient: Greater than 30
[2021-10-28] MEDS: SODIUM CHLORIDE 0.9% 1,000 ML IV SCH (13:00)
[2021-10-28] MEDS: DILTIAZEM 125 MG in SODIUM CHLORIDE 0.9% 100 ML IV SCH (13:01)
[2021-10-28 14:25] VITALS: BMI 15.8
[2021-10-28 15:03] VITALS: BP 114/65; PULSE 123; RESP 12
--- NOTE | 2021-10-31 15:47 | P.DS ---
Providers Date of admission: 10/27/21 13:00 Attending physician: López Ozuna MD Consults: 10/27/21 12:59 Consult Physician Urgent Consulting Provider: Mechelle Smith Consult Reason/Comments: Status epilepticus Do you want consulting provider notified?: Already Contacted 10/27/21 13:00 Consult Physician Urgent Consulting Provider: Martha Resendiz Consult Reason/Comments: Status epilepticus Do you want consulting provider notified?: Already Contacted 10/28/21 10:11 Consult to Palliative Care Routine Consulting Provider: Kari Patiño Consult Reason/Comments: palliative care Do you want consulting provider notified?: Yes Primary care physician: [facility] Hospital Course: Disposition: Call for care: Patient on 10/28/21 Final diagnosis Status epilepticus Acute encephalopathy due to status epilepticus Acute hypoxic respiratory failure Lactic acidosis Failure to thrive Paroxysmal A. 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 Patient had a long seizure episode at home, was brought into the hospital by emergency medical services. He received Versed along the Route and initially responded, however, had 2 additional seizes on Route. Once he is in the hospital, he was transferred to hospital bed and intubated, started on a propofol drip. Patient could not provide any history due to being intubated and sedated. The was the DURABLE POWER OF NUT FEEDER, patient's previous wishes were DO NOT RESUSCITATE/DO NOT INTUBATE and this was relayed to EMS, however, EMS subsequently related to her physician that the patient was full code which is why he got intubated. After goals of care conversation speaking about patient's clinical status including likely status epilepticus, patient's opted for a 24-hour trial of therapy prior to compassionate weaning. Hospital course Patient was maintained on the ventilator with propofol pressors. Overall he was not improving and decided to proceed with comfort care. Patient was terminally weaned off of ventilator and on 10/29/19 Patient Condition at Discharge: Undetermined Plan - Discharge Summary New Discharge Prescriptions: No Action Aspirin EC [Ecotrin Low Dose] 81 mg PO DAILY Cholecalciferol [Vitamin D3 (25 Mcg = 1000 Iu)] 25 mcg PO DAILY Tiotropium 2.5 Mcg/Puff [Spiriva Respimat 2.5 Mcg] 2 puff INHALATION RT-DAILY Mometasone/Formoterol [Dulera 100 Mcg-5 Mcg Inhaler] 2 puff INHALATION RT-BID Albuterol Nebulized [Ventolin Nebulized] 2.5 mg INHALATION RT-Q4H Albuterol Sulfate [Albuterol Sulfate Hfa] 2 puff INHALATION RT-Q6H PRN PRN Reason: Shortness Of Breath lisinopriL [Prinivil] 10 mg PO DAILY Lidocaine 5% Patch [Lidoderm] 1 patch TRANSDERM DAILY PRN PRN Reason: Pain Discharge Medication List Aspirin EC [Ecotrin Low Dose] 81 mg PO DAILY 04/01/20 [History] Albuterol Nebulized [Ventolin Nebulized] 2.5 mg INHALATION RT-Q4H 10/27/21 [History] Albuterol Sulfate [Albuterol Sulfate Hfa] 2 puff INHALATION RT-Q6H PRN 10/27/21 [History] Cholecalciferol [Vitamin D3 (25 Mcg = 1000 Iu)] 25 mcg PO DAILY 10/27/21 [History] Lidocaine 5% Patch [Lidoderm] 1 patch TRANSDERM DAILY PRN 10/27/21 [History] Mometasone/Formoterol [Dulera 100 Mcg-5 Mcg Inhaler] 2 puff INHALATION RT-BID 10/27/21 [History] Tiotropium 2.5 Mcg/Puff [Spiriva Respimat 2.5 Mcg] 2 puff INHALATION RT-DAILY 10/27/21 [History] lisinopriL [Prinivil] 10 mg PO DAILY 10/27/21 [History] Patient Instructions/Handouts: Seizure/Epilepsy Discharge Instructions & Follow-Up Discharge Disposition: - Preliminary Cause of Preliminary Cause of : Encephalopthy
== END 2021-10-28 17:04 | disposition expired | DRG 100 ==
LOC: EC 10:43 → 2SICU 13:00
PROVIDERS: ADMIT Internal Medicine; ATTEND Internal Medicine
PROC: 0BH17EZ Insertion of Endotracheal Airway into Trachea, Via Natural or Artificial Opening (ICD-10-PCS; principal; 2021-10-27)
PROC: 5A1935Z Respiratory Ventilation, Less than 24 Consecutive Hours (ICD-10-PCS; principal; 2021-10-27)
PROC: 0D9670Z Drainage of Stomach with Drainage Device, Via Natural or Artificial Opening (ICD-10-PCS; 2021-10-27)
DX: G40.901 Epilepsy, unspecified, not intractable, with status epilepticus (principal); G93.41 Metabolic encephalopathy; J96.01 Acute respiratory failure with hypoxia; G04.81 Other encephalitis and encephalomyelitis; E87.2 Acidosis; R64 Cachexia; Z68.1 Body mass index [BMI] 19.9 or less, adult; E22.2 Syndrome of inappropriate secretion of antidiuretic hormone; E87.8 Other disorders of electrolyte and fluid balance, not elsewhere classified; F17.210 Nicotine dependence, cigarettes, uncomplicated; H91.90 Unspecified hearing loss, unspecified ear; I10 Essential (primary) hypertension; I25.10 Atherosclerotic heart disease of native coronary artery without angina pectoris; I25.2 Old myocardial infarction; I48.0 Paroxysmal atrial fibrillation; I65.01 Occlusion and stenosis of right vertebral artery; J44.9 Chronic obstructive pulmonary disease, unspecified; M19.90 Unspecified osteoarthritis, unspecified site; R62.7 Adult failure to thrive; Z51.5 Encounter for palliative care; Z66 Do not resuscitate; E78.5 Hyperlipidemia, unspecified; Z79.51 Long term (current) use of inhaled steroids; Z79.82 Long term (current) use of aspirin; Z79.899 Other long term (current) drug therapy; Z85.46 Personal history of malignant neoplasm of prostate; Z86.73 Personal history of transient ischemic attack (TIA), and cerebral infarction without residual deficits; Z90.79 Acquired absence of other genital organ(s); Z95.5 Presence of coronary angioplasty implant and graft; Z90.89 Acquired absence of other organs; Z90.49 Acquired absence of other specified parts of digestive tract
CPT/HCPCS: 31500; 36415; 36600; 70450; 70496; 70498; 71045; 80048; 80053; 80185; 80306; 81001; 82805; 83605; 83735; 84295; 84484; 85025; 85027; 85610; 85730; 93005; 94002; 94003; 95822; 96361; 96365; 96366; 96368; 96375; 99291